=== PATIENT | male | born 1970 | race Caucasian/White ===

== ENCOUNTER → 2018-10-05 23:26 | Outpatient (CLI) | payer OTHER, SELFPAY ==
[2018-10-05 17:33] VITALS: BMI 43.7
[2018-10-05 23:47] LABS: Absolute Lymphocyte Count 2.01 X10^3/ul (0.83-4.51); Absolute Neutrophil Count 5.7 X10^3/uL (2.0-7.7); Basophil# 0.04 X10^3/uL; Basophil% 0.5 % (0-1); Eosinophil# 0.17 X10^3/uL; Hematocrit 51.3 % (40-54); Hemoglobin 17.4 g/dl (13.0-16.5); Lymphocyte # 2.01 X10^3/ul (4.0); Lymphocyte % 23.5 % (19-41); Mean Corp Hgb Conc 33.9 g/gl (32-36); Mean Corpuscular Hgb 31.4 pg (27.0-32.0); Mean Corpuscular Volume 92.6 fL (80-94); Mean Platelet Vol. 10.9 fl (6.2-12.0); Monocyte# 0.66 X10^3/uL; Monocyte% 7.7 % (0-10); Neutrophil # 5.65 X10^3/uL (2.7-7.7); Neutrophil % 65.9 % (47-70); Platelet Count 235 K/mm3 (150-450); RBC Distribution Width CV 13.3 % (11.6-14.6); RBC Distribution Width SD 44.4 fl (35.1-43.9); Red Blood Count 5.54 M/mm3 (4.6-6.2); White Blood Count 8.6 K/mm3 (4.4-11.0)
[2018-10-05 23:51] LABS: POSITIVE COUNT NO; POSITIVE DIFFERENTIAL NO; POSITIVE MORPHOLOGY NO
[2018-10-06 00:06] LABS: ALB/GLOB Ratio 1.1 RATIO (0.9-2.4); AST(SGOT) 30 U/L (15-37); Alanine Aminotransfer ALT/SGPT 44 U/L (16-61); Alkaline Phosphatase 120 U/L (45-117); Anion Gap 8 (5-15); BUN 17 mg/dL (7-18); BUN/Creat Ratio 17.7 RATIO (10-20); Calcium,Total 8.9 mg/dL (8.5-10.1); Chloride 107 mmol/L (98-107); Cholesterol 217 mg/dL (200); Creatinine, Serum 0.96 mg/dL (0.70-1.30); EST Glomerular Filtration Rate 88 mL/min (>60); Est Glom Filt Rate - Afr Amer 107 mL/min (>60); Globulin 3.6 g/dL (2.2-4.2); Glucose 93 mg/dL (74-106); High Density Lipoprotein 42 mg/dL; PSA,Total - Annual Screen 1.91 ng/mL (0.00-4.00); Potassium 4.2 mmol/L (3.5-5.1); Protein, Total 7.6 g/dL (6.4-8.2); Sodium Level 138 mmol/L (136-145); Triglycerides 177 mg/dL; Very Low Density Lipoprotein 35 mg/dL (5-40)
== END ==
PROVIDERS: Referring Provider Nurse Practitioner; Visit Provider Nurse Practitioner
DX: Z00.00 Encounter for general adult medical examination without abnormal findings (principal)
CPT/HCPCS: 80053; 80061; 84153; 85025; G0103

== ENCOUNTER → 2019-09-12 | Outpatient (CLI) | payer OTHER, SELFPAY ==
[2019-09-12 19:23] VITALS: BMI 42.7
[2019-09-13 01:38] LABS: Absolute Lymphocyte Count 2.54 X10^3/uL (0.83-4.51); Absolute Neutrophil Count 4.3 X10^3/uL (2.0-7.7); Basophil# 0.05 X10^3/uL; Basophil% 0.6 % (0-1); Eosinophil# 0.13 X10^3/uL; Eosinophils% 1.7 % (0-5); Hematocrit 50.9 % (40-54); Hemoglobin 16.5 g/dL (13.0-16.5); Lymphocyte # 2.54 X10^3/ul (4.0); Lymphocyte % 32.9 % (19-41); Mean Corp Hgb Conc 32.4 g/dL (32-36); Mean Corpuscular Hgb 29.6 pg (27.0-32.0); Mean Corpuscular Volume 91.4 fL (80-94); Mean Platelet Vol. 10.8 fl (6.2-12.0); Monocyte# 0.65 X10^3/uL; Monocyte% 8.4 % (0-10); NRBC Flagged by Analyzer 0 % (0-5); Neutrophil # 4.34 X10^3/uL (2.7-7.7); Neutrophil % 56.1 % (47-70); Platelet Count 242 K/mm3 (150-450); RBC Distribution Width CV 12.8 % (11.6-14.6); RBC Distribution Width SD 43.1 fl (35.1-43.9); Red Blood Count 5.57 M/mm3 (4.6-6.2); White Blood Count 7.7 K/mm3 (4.4-11.0)
[2019-09-13 02:21] LABS: ALB/GLOB Ratio 1.1 RATIO (0.9-2.4); AST(SGOT) 27 U/L (15-37); Alanine Aminotransfer ALT/SGPT 42 U/L (16-61); Alkaline Phosphatase 138 U/L (45-117); Anion Gap 5 (5-15); BUN 20 mg/dL (7-18); BUN/Creat Ratio 18.9 RATIO (10-20); Chloride 108 mmol/L (98-107); Cholesterol 216 mg/dL (200); Creatinine, Serum 1.06 mg/dL (0.70-1.30); EST Glomerular Filtration Rate 78 mL/min (>60); Est Glom Filt Rate - Afr Amer 95 mL/min (>60); Globulin 3.6 g/dL (2.2-4.2); Glucose 85 mg/dL (74-106); High Density Lipoprotein 46 mg/dL; Potassium 4.5 mmol/L (3.5-5.1); Protein, Total 7.6 g/dL (6.4-8.2); Sodium Level 139 mmol/L (136-145); Triglycerides 129 mg/dL; Very Low Density Lipoprotein 26 mg/dL (5-40)
== END ==
PROVIDERS: Family Provider Nurse Practitioner; PCP Nurse Practitioner; Referring Provider Nurse Practitioner; Visit Provider Nurse Practitioner
DX: Z00.00 Encounter for general adult medical examination without abnormal findings (principal); Z23 Encounter for immunization
CPT/HCPCS: 80053; 80061; 85025

== ENCOUNTER → 2020-10-10 19:37 | Outpatient (CLI) | payer OTHER, SELFPAY ==
[2020-10-10 12:49] VITALS: BMI 46.5
[2020-10-10 19:50] LABS: Absolute Neutrophil Count 3.9 X10^3/uL (2.0-7.7); Basophil# 0.04 X10^3/uL; Basophil% 0.6 % (0-1); Eosinophil# 0.11 X10^3/uL; Eosinophils% 1.6 % (0-5); Hematocrit 52.9 % (40-54); Hemoglobin 17.4 g/dL (13.0-16.5); Lymphocyte % 32.1 % (19-41); Mean Corp Hgb Conc 32.9 g/dL (32-36); Mean Corpuscular Hgb 30.9 pg (27.0-32.0); Mean Platelet Vol. 10.5 fl (6.2-12.0); Monocyte# 0.59 X10^3/uL; Monocyte% 8.6 % (0-10); NRBC Flagged by Analyzer 0 % (0-5); Neutrophil # 3.88 X10^3/uL (2.7-7.7); Neutrophil % 56.7 % (47-70); Platelet Count 248 K/mm3 (150-450); RBC Distribution Width SD 45.3 fl (35.1-43.9); Red Blood Count 5.63 M/mm3 (4.6-6.2); White Blood Count 6.9 K/mm3 (4.4-11.0)
[2020-10-10 20:30] LABS: ALB/GLOB Ratio 1.1 RATIO (0.9-2.4); AST(SGOT) 31 U/L (15-37); Alanine Aminotransfer ALT/SGPT 52 U/L (16-61); Alkaline Phosphatase 127 U/L (45-117); Anion Gap 5 (5-15); BUN 17 mg/dL (7-18); BUN/Creat Ratio 16.3 RATIO (10-20); Calcium,Total 9.2 mg/dL (8.5-10.1); Chloride 104 mmol/L (98-107); Cholesterol 234 mg/dL (200); Creatinine, Serum 1.04 mg/dL (0.70-1.30); EST Glomerular Filtration Rate 80 mL/min (>60); Est Glom Filt Rate - Afr Amer 97 mL/min (>60); Globulin 3.8 g/dL (2.2-4.2); Glucose 91 mg/dL (74-106); High Density Lipoprotein 50 mg/dL; PSA,Total - Annual Screen 1.68 ng/mL (0.00-4.00); Potassium 5.1 mmol/L (3.5-5.1); Protein, Total 7.8 g/dL (6.4-8.2); Sodium Level 137 mmol/L (136-145); Triglycerides 124 mg/dL; Very Low Density Lipoprotein 25 mg/dL (5-40)
== END ==
PROVIDERS: Referring Provider Nurse Practitioner; Visit Provider Nurse Practitioner
DX: Z00.00 Encounter for general adult medical examination without abnormal findings (principal)
CPT/HCPCS: 80053; 80061; 84153; 85025; G0103

== ENCOUNTER → 2021-07-01 21:41 | Outpatient (CLI) | payer OTHER, SELFPAY ==
[2021-07-01 21:49] LABS: Absolute Lymphocyte Count 1.62 X10^3/uL (0.83-4.51); Absolute Neutrophil Count 5.8 X10^3/uL (2.0-7.7); Basophil# 0.03 X10^3/uL; Basophil% 0.4 % (0-1); Eosinophil# 0.01 X10^3/uL; Eosinophils% 0.1 % (0-5); Hematocrit 47.1 % (40-54); Hemoglobin 15.4 g/dL (13.0-16.5); Lymphocyte # 1.62 X10^3/ul (0.83-4.51); Lymphocyte % 18.9 % (19-41); Mean Corp Hgb Conc 32.7 g/dL (32-36); Mean Corpuscular Hgb 29.9 pg (27.0-32.0); Mean Corpuscular Volume 91.5 fL (80-94); Mean Platelet Vol. 10.6 fl (6.2-12.0); Monocyte# 0.87 X10^3/uL; Monocyte% 10.2 % (0-10); NRBC Flagged by Analyzer 0 % (0-5); Neutrophil # 5.83 X10^3/uL (2.7-7.7); Neutrophil % 68.1 % (47-70); POSITIVE MORPHOLOGY YES; Platelet Count 256 K/mm3 (150-450); RBC Distribution Width CV 14.1 % (11.6-14.6); RBC Distribution Width SD 47.8 fl (35.1-43.9); Red Blood Count 5.15 M/mm3 (4.6-6.2); White Blood Count 8.6 K/mm3 (4.4-11.0)
[2021-07-01 22:00] LABS: Differential Indicated SCAN CRITERIA MET
[2021-07-01 22:08] LABS: ALB/GLOB Ratio 0.7 RATIO (0.9-2.4); AST(SGOT) 60 U/L (15-37); Alanine Aminotransfer ALT/SGPT 90 U/L (16-61); Albumin, Serum 2.8 g/dL (3.2-5.0); Alkaline Phosphatase 143 U/L (45-117); Anion Gap 6 (5-15); BUN 28 mg/dL (7-18); Calcium,Total 9.1 mg/dL (8.5-10.1); Chloride 107 mmol/L (98-107); Creatinine, Serum 0.87 mg/dL (0.70-1.30); EST Glomerular Filtration Rate 97 mL/min (>60); Est Glom Filt Rate - Afr Amer 118 mL/min (>60); Globulin 4.3 g/dL (2.2-4.2); Glucose 126 mg/dL (74-106); Potassium 4.3 mmol/L (3.5-5.1); Protein, Total 7.1 g/dL (6.4-8.2); Sodium Level 139 mmol/L (136-145)
[2021-07-01 22:28] LABS: Differential Comment SCANNED
== END ==
PROVIDERS: Visit Provider Nurse Practitioner
DX: R50.9 Fever, unspecified (principal); R04.2 Hemoptysis
CPT/HCPCS: 80053; 85025

== ENCOUNTER → 2021-09-12 21:06 | Outpatient (CLI) | payer OTHER, SELFPAY ==
[2021-09-12 21:35] LABS: Absolute Lymphocyte Count 1.95 X10^3/uL (0.83-4.51); Absolute Neutrophil Count 4.3 X10^3/uL (2.0-7.7); Basophil# 0.06 X10^3/uL; Basophil% 0.8 % (0-1); Eosinophil# 0.24 X10^3/uL; Eosinophils% 3.2 % (0-5); Hematocrit 52.1 % (40-54); Hemoglobin 16.6 g/dL (13.0-16.5); Lymphocyte # 1.95 X10^3/ul (0.83-4.51); Lymphocyte % 25.9 % (19-41); Mean Corp Hgb Conc 31.9 g/dL (32-36); Mean Corpuscular Hgb 29.7 pg (27.0-32.0); Mean Corpuscular Volume 93.4 fL (80-94); Mean Platelet Vol. 11.1 fl (6.2-12.0); Monocyte# 0.94 X10^3/uL; Monocyte% 12.5 % (0-10); NRBC Flagged by Analyzer 0 % (0-5); Neutrophil % 57.2 % (47-70); Platelet Count 224 K/mm3 (150-450); RBC Distribution Width CV 13.8 % (11.6-14.6); RBC Distribution Width SD 47.4 fl (35.1-43.9); Red Blood Count 5.58 M/mm3 (4.6-6.2); White Blood Count 7.5 K/mm3 (4.4-11.0)
[2021-09-12 22:18] LABS: AST(SGOT) 33 U/L (15-37); Alanine Aminotransfer ALT/SGPT 46 U/L (16-61); Albumin, Serum 3.5 g/dL (3.2-5.0); Alkaline Phosphatase 112 U/L (45-117); Anion Gap 5 (5-15); BUN 21 mg/dL (7-18); BUN/Creat Ratio 19.1 RATIO (10-20); CRP, High Sensitivity Cardiac 4.78 mg/L; Calcium,Total 9.3 mg/dL (8.5-10.1); Chloride 108 mmol/L (98-107); Cholesterol 199 mg/dL (200); EST Glomerular Filtration Rate 75 mL/min (>60); Est Glom Filt Rate - Afr Amer 90 mL/min (>60); Globulin 3.5 g/dL (2.2-4.2); Glucose 91 mg/dL (74-106); High Density Lipoprotein 36 mg/dL; Potassium 4.3 mmol/L (3.5-5.1); Sodium Level 141 mmol/L (136-145); Triglycerides 125 mg/dL; Very Low Density Lipoprotein 25 mg/dL (5-40)
== END ==
PROVIDERS: Visit Provider Nurse Practitioner
DX: B37.0 Candidal stomatitis (principal); I10 Essential (primary) hypertension; E78.2 Mixed hyperlipidemia
CPT/HCPCS: 80053; 80061; 85025; 86141

== ENCOUNTER → 2022-08-04 | Outpatient (CLI) | payer OTHER, SELFPAY ==
[2022-08-04 21:44] LABS: Absolute Lymphocyte Count 1.89 X10^3/uL (0.83-4.51); Absolute Neutrophil Count 3.9 X10^3/uL (2.0-7.7); Basophil# 0.04 X10^3/uL; Basophil% 0.6 % (0-1); Eosinophil# 0.16 X10^3/uL; Eosinophils% 2.4 % (0-5); Hematocrit 54.1 % (40-54); Hemoglobin 17.9 g/dL (13.0-16.5); Lymphocyte # 1.89 X10^3/ul (0.83-4.51); Lymphocyte % 28.4 % (19-41); Mean Corp Hgb Conc 33.1 g/dL (32-36); Mean Corpuscular Hgb 30.9 pg (27.0-32.0); Mean Corpuscular Volume 93.3 fL (80-94); Monocyte# 0.66 X10^3/uL; Monocyte% 9.9 % (0-10); NRBC Flagged by Analyzer 0 % (0-5); Neutrophil # 3.88 X10^3/uL (2.7-7.7); Neutrophil % 58.2 % (47-70); Platelet Count 224 K/mm3 (150-450); RBC Distribution Width CV 14.1 % (11.6-14.6); RBC Distribution Width SD 48.1 fl (35.1-43.9); White Blood Count 6.7 K/mm3 (4.4-11.0)
[2022-08-04 22:02] LABS: ALB/GLOB Ratio 1.1 RATIO (0.9-2.4); AST(SGOT) 52 U/L (15-37); Alanine Aminotransfer ALT/SGPT 65 U/L (16-61); Albumin, Serum 3.9 g/dL (3.2-5.0); Alkaline Phosphatase 134 U/L (45-117); Anion Gap 4 (5-15); BUN 27 mg/dL (7-18); BUN/Creat Ratio 22.9 RATIO (10-20); Calcium,Total 9.4 mg/dL (8.5-10.1); Chloride 108 mmol/L (98-107); Cholesterol 199 mg/dL (200); Creatinine, Serum 1.18 mg/dL (0.70-1.30); EST Glomerular Filtration Rate 69 mL/min (>60); Est Glom Filt Rate - Afr Amer 83 mL/min (>60); Globulin 3.7 g/dL (2.2-4.2); Glucose 123 mg/dL (74-106); High Density Lipoprotein 28 mg/dL; Potassium 4.6 mmol/L (3.5-5.1); Protein, Total 7.6 g/dL (6.4-8.2); Sodium Level 139 mmol/L (136-145); Triglycerides 207 mg/dL; Very Low Density Lipoprotein 41 mg/dL (5-40)
== END | disposition home or self-care (01) ==
PROVIDERS: Visit Provider Nurse Practitioner
DX: E78.2 Mixed hyperlipidemia (principal); I10 Essential (primary) hypertension
CPT/HCPCS: 80053; 80061; 85025

== ENCOUNTER → 2024-01-11 | Outpatient (CLI) | payer OTHER, SELFPAY ==
--- NOTE | 2024-01-11 | LES_PTH ---
PATIENT: RADHA CHRISTIANSON LOC: [facility] U#:[id number] AGE/SX: 53/M ROOM: RE01/11/[address]: CARLA Morelos : 1970 BED: DIS: 01/11/2024 SPEC #: [id number] RECD: 01/11/24 22:09 STATUS: ROSEMARY CECILLE #: [id number] DANIELLE: 01/11/24 00:[address]: Naz Barajas NP DEPT: SURGICAL PATHOLOGY RECD BY: Lilliam Frye Tissues: Skin of arm Procedures: Surgery Specimen Level IV HEADER OPERATION: Biopsy 8mm left forearm PRE-OP DIAGNOSIS: Lesion left arm, Carcinoma in situ TISSUE SUBMITTED: Left forearm lesion MICROSCOPIC DIAGNOSIS Skin lesion of left forearm, biopsy: Basal cell carcinoma, superficial, multifocal. Extensive solar elastosis. Chronic dermatitis. Margins of excision are free of carcinoma. AM/mr 01/13/24 MICROSCOPIC DESCRIPTION Slides are reviewed. GROSS DESCRIPTION Received in fixative is one container labeled with the patient's name and designated Left forearm biopsy. The specimen consists of a piece of moss white skin measuring 0.7 x 0.6 x 0.2cm. The specimen is inked, bisected and submitted entirely in one cassette. ARIANA/ 01/12/24 TC:0 CPT: 14111
== END | disposition home or self-care (01) ==
PROVIDERS: PCP Nurse Practitioner; Visit Provider Nurse Practitioner
DX: D04.9 Carcinoma in situ of skin, unspecified (principal); C44.619 Basal cell carcinoma of skin of left upper limb, including shoulder; L30.9 Dermatitis, unspecified
CPT/HCPCS: 88305

== ENCOUNTER → 2024-07-26 | Outpatient (CLI) | payer OTHER, SELFPAY ==
[2024-07-26 21:00] LABS: Absolute Lymphocyte Count 2.15 X10^3/uL (0.83-4.51); Absolute Neutrophil Count 4.2 X10^3/uL (2.0-7.7); Basophil# 0.05 X10^3/uL; Basophil% 0.7 % (0-1); Eosinophil# 0.16 X10^3/uL; Eosinophils% 2.2 % (0-5); Hemoglobin 18.5 g/dL (13.0-16.5); Lymphocyte # 2.15 X10^3/ul (0.83-4.51); Lymphocyte % 29.6 % (19-41); Mean Corp Hgb Conc 32.6 g/dL (32-36); Mean Corpuscular Hgb 29.6 pg (27.0-32.0); Mean Corpuscular Volume 90.6 fL (80-94); Mean Platelet Vol. 11.1 fl (6.2-12.0); Monocyte# 0.71 X10^3/uL; Monocyte% 9.8 % (0-10); NRBC Flagged by Analyzer 0 % (0-5); Neutrophil # 4.16 X10^3/uL (2.7-7.7); Neutrophil % 57.3 % (47-70); Platelet Count 244 K/mm3 (150-450); RBC Distribution Width CV 14.4 % (11.6-14.6); RBC Distribution Width SD 47.7 fl (35.1-43.9); Red Blood Count 6.26 M/mm3 (4.6-6.2); White Blood Count 7.3 K/mm3 (4.4-11.0)
[2024-07-26 21:04] LABS: Hematocrit 56.7 % (40-54)
[2024-07-26 21:10] LABS: AST(SGOT) 36 U/L (15-37); Alanine Aminotransfer ALT/SGPT 38 U/L (16-61); Albumin, Serum 3.8 g/dL (3.2-5.0); Alkaline Phosphatase 153 U/L (45-117); Anion Gap 7 (5-15); BUN 18 mg/dL (7-18); BUN/Creat Ratio 14.4 RATIO (10-20); Calcium,Total 9.4 mg/dL (8.5-10.1); Chloride 105 mmol/L (98-107); Cholesterol 156 mg/dL (200); Creatinine, Serum 1.25 mg/dL (0.70-1.30); EST Glomerular Filtration Rate 64 mL/min (>60); Est Glom Filt Rate - Afr Amer 77 mL/min (>60); Globulin 3.8 g/dL (2.2-4.2); Glucose 102 mg/dL (74-106); High Density Lipoprotein 29 mg/dL; Potassium 4.3 mmol/L (3.5-5.1); Protein, Total 7.6 g/dL (6.4-8.2); Sodium Level 137 mmol/L (136-145); Triglycerides 189 mg/dL; Very Low Density Lipoprotein 38 mg/dL (5-40)
== END | disposition home or self-care (01) ==
PROVIDERS: PCP Nurse Practitioner; Referring Provider Nurse Practitioner; Visit Provider Nurse Practitioner
DX: I10 Essential (primary) hypertension (principal); E78.2 Mixed hyperlipidemia
CPT/HCPCS: 80053; 80061; 85025

== ENCOUNTER → 2025-08-20 | Outpatient (CLI) | payer OTHER, SELFPAY ==
--- OUTSIDE RECORDS SUMMARY | 2025-08-20 22:26 | XMS RPT_ITS | CCD ---
Author Organization [facility] Care Team Providers Care Ventilating Engineer Name Role Phone Required, No Pcp Unavailable Unavailable Kim Edmond Unavailable Unavailabl e None, No PCP Unavailable Unavailable Unavailable Unavailable Unavailable Unavailable Karl STEWARD/STEWARDESS WINE.COUN[employer], Brandie L Primary Care Provide r Karl STEWARD/STEWARDESS WINE.[facility], Brandie L Primary Care Provide r BRANDIE BURT Referring Unavailable KARL, BRANDIE Primary Care Unavailable MD IRMA KEE Referring Unavailabl e MD IRMA KEE Attending UnavailMD IRMA Man Referring Unavailabl e MD IRMA KEE Attending Unavailabl e MD IRMA KEE Attending Unavailabl e MD IRMA KEE Referring Unavailabl e Unavailable Primary Care Provider Unavailabl e Burt STEWARD/STEWARDESS WINE-COUNTER CLERK [employer], Brandie L Primary Care Provide r Karl STEWARD/STEWARDESS [employer]INE.COUNTER CLERK [employer], Brandie L Primary Care Provide r JENIFFER JOSE Referring Unavailable BUTR, BRANDIE L Primary Care Unavailable JENIFFER JOSE Attending Unavailable SELF Referring Unavailable BURT, BRANDIE L Primary Care Unavailable Karl PIN OR CLIP FASTENER, Brandie Referring Unavailable Burt PIN OR CLIP FASTENER, Brandie Attending Unavailable Burt PIN OR CLIP FASTENER, Brandie Primary Care Unavailable Burt PIN OR CLIP FASTENER, Brandie Attending Unavailable Burt PIN OR CLIP FASTENER, Brandie Primary Care Unavailable Burt STEWARD/STEWARDESS WINE-COUNTER CLERK [employer], Brandie L Primary Care Provide r BURT, BRANDIE L Primary Care Unavailable VILLA LUBIN Attending Unavailable BURT, BRANDIE L Primary Care Unavailable VILLA LUBNI Attending Unavailable BRANDIE BURT Primary Care Unavailable BRANDIE BURT Primary Care Unavailable Karl BASSETT-Brandie LAMB Primary Care Provide r IRMA KEE Attending Unavailable BRANDIE BURT Primary Care Unavailable Allergies Allergy Classification Reported Allergen(s) Allergy Type Date of Onset Reaction(s) Facility Cephalosporins (antibiotic) (1 source) Cephalexin Drug Allergy 8 Unknown [facility] (12 sources) Cephalexin; Translations: [CEPHALEXIN] Drug Allergy 8 Unknown, Intolerance, Other: See Comments, Other [facility] Work Phone: (1 source) Cephalexin Drug Allergy 8 [facility] Repository Medications Current Medications Medication Drug Class(es) Dates Sig (Normalized) Sig (Original) amoxicillin 875 mg / clavulanate 125 mg oral tablet (4 sources) Penicillin-class Antibacterial Start: 03-16-2024 End: 03-23-2024 take 1 tablet by mouth twice daily amoxicillin-pot clavulanate (Augmentin) 875-125 mg tablet Indications: Pharyngitis, unspecified etiology Take 1 tablet by mouth 2 times a day for 7 days. 14 tablet 03/16/2024 03/23/2024 Active Start: 01-11-2024 take 1 tablet by hitesh th twice daily Amoxicillin-Pot Clavulanate Active 1 TABLET PO TWICE A DAY January 11, 2024 12:00am Start: 12-25-2019 End: 10-10-2020 take 1 tablet by mouth every twelve hours Amoxicillin-Pot Clavulanate Discontinued 1 TABLET PO Q12H December 25, 2019 12:00am October 10, 2020 1:51pm anastrozole 1 mg oral tablet (14 sources) Aromatase Inhibitor Start: 07-15-2023 take 0.5 mg by mouth every other day Anastrozole Active 0.5 MG PO .qod July 15, 2023 12:00am Start: 08-12-2022 anastrozole (A RIMIDEX) 1 mg tablet Take 1 mg by mouth. 08/12/2022 Active Auto CPAP 5-20cm (2 sources) Start: 10-27-2021 Auto CPAP 5-20 cm Active 0 .Route .MEDSUPPLY October 27, 2021 1:00am with tubing mask or nasal prongs depending on evaluation DX G47.30 severe sleep apnea azithromycin 250 mg oral tablet (5 sources) Macrolide Antimicrobial Start: 08-29-2024 azithromycin (Zithromax) 250 mg tablet Indications: Upper respiratory tract infection, unspecified type 2 tabs po day 1; 1 tab po every day days 2-5 6 tablet 08/29/2024 Active Start: 09-04-2022 End: 09-09-2022 Azithromycin Discontinued 25 0 MG PO daily 6 September 04, 2022 1:00am September 09, 2022 1:03am 2 po qd for 1 day then 1 po qd for 4 days with food or after eating Start: 07-01-2021 End: 07-06-2021 Azithromycin Discontinued 25 0 MG PO daily 6 July 01, 2021 12:00am July 06, 2021 12:01am 2 po qd for 1 day then 1 po qd for 4 days with food or after eating brompheniramine maleate 0.4 mg/ml / dextromethorphan hydrobromide 2 mg/ml / pseudoephedrine hydrochloride 6 mg/ml oral solution (5 sources) alpha-Adrenergic Agonist, Uncompetitive H-ljwqck-P-aspartate Receptor Antagonist, Sigma-1 Agonist Start: 08-29-2024 take 5 mL by mouth every four hours for cough anfdxvvkaokeppc-bdazjopfm-QV (Bromfed DM) 2-30-10 mg/5 mL syrup Indications: Upper respiratory tract infection, unspecified type Take 5 mL by mouth every 4 hours if needed for allergies, congestion or cough. 120 mL 08/29/2024 Active Start: 03-16-2024 take 5 mL by mouth every four hours for cough cayudskydlaokyr-ngudotlzs-SR (Bromfed DM ) 2-30-10 mg/5 mL syrup Indications: Pharyngitis, unspecified etiology Take 5 mL by mouth every 4 hours if needed for allergies, congestion or cough. 120 mL 03/16/2024 Active clotrimazole 10 mg oral lozenge (1 source) Azole Antifungal Start: 08-29-2024 End: 09-05-2024 take 1 tablet by mouth four times daily clotrimazole (Mycelex) 10 mg tono Indications: Upper respiratory tract infection, unspecified type Take 1 tablet (10 mg) by mouth 4 times a day for 7 days. 28 Tono 08/29/2024 09/05/2024 Active losartan potassium 50 mg oral tablet (8 sources) Angiotensin 2 Receptor Tabitha Start: 07-15-2023 take 1 tablet by mouth once daily losartan (Cozaar) 50 mg tablet Take 1 tablet (50 mg) by mouth once daily. 10/29/2023 Active methylPREDNISolone (2 sources) Corticosteroid Start: 08-29-2024 methylPREDNISolone (Medrol Dospak) 4 mg tablets Indications: Upper respiratory tract infection, unspecified type Take as directed on package. 21 tablet 08/29/2024 Active minocycline 50 mg oral capsule (20 sources) Tetracycline-class Drug Start: 10-05-2018 End: 09-20-2023 take 50 mg by mouth once daily Minocycline Active 50 MG PO DAILY September 20, 2023 10:22pm Minocycline HCl CAPS Quantity: 0 Refills: 0 Ordered: 12-Aug-2022 DO Active Comment on above: Source=Elissarimary, Medication=Minocycli ne 50 Mg Cap Sunp, OriginatingSource=[id number], OriginatingProvider=BRANDIE BURT, Duration=30, Refills=6, Date Last Modified/Filled=07-Apr-2021 naproxen 500 mg oral tablet (7 sources) Nonsteroidal Anti-inflammatory Drug Start: 2021 take 1 tablet by mouth twice daily naproxen (Naprosyn) 500 mg tablet Take 1 tablet (500 mg) by mouth 2 times a day. 04/26/2023 Active Start: 05-05-2021 End: 05-11-2021 take 1 tablet by mouth twice daily as needed for pain naproxen 500 mg oral delayed release tablet ; 1 tab(s) orally 2 times a day, As Needed -for pain Quantity: 14 Refills: 0 Ordered: 05-May-2021 Kim Edmond Start: 05-May-2021 End: 11-May-2021 Generic Substitution Allowed Comments: Check with your doctor before becoming .It is very important that you take or use this exactly as directed. Do not skip doses or discontinue unless directed by your doctor.May cause drowsiness or dizziness.Obtain medical advice before taking any non-prescription drugs as some may affect the action of this medication.Swallow whole. Do not crush.Take with food or milk. Comment on above: Check with your doct or before becoming .It is very important that you take or use this exactly as directed. Do not skip doses or discontinue unless directed by your doctor.May cause drowsiness or dizziness.Obtain medical advice before taking any non-prescription drugs as some may affect the action of this medication.Swallow whole. Do not crush.Take with food or milk. predniSONE 10 mg oral tablet (3 sources) Start: 03-16-20 End: 03-21-20 take 1 tablet by mouth twice daily predniSONE (Deltasone) 10 mg tablet Indications: Pharyngitis, unspecified etiology Take 1 tablet (10 mg) by mouth 2 times a day for 5 days. 10 tablet 03/16/2024 03/21/2024 Active Start: 05-13-2021 End: 05-17-2021 Prednisone Discontinued 20 M G PO TWICE A DAY 07 02May 13, 2021 12:00am May 17, 2021 12:01am 2 po bid 4D,1 po bid for 4 D, 1 po qd for 4 D 1/2 po qd for 2 days sildenafil 50 mg oral tablet (20 sources) Phosphodiesterase 5 Inhibitor Start: 08-30-2023 take 1 tablet by mouth once daily as needed sildenafil (Viagra) 50 mg tablet TAKE 1 TABLET BY MOUTH DAILY NEEDED 30 MINUTES to FOUR HOURS before sexual activity 08/30/2023 Active Start: 12-14-2022 Sildenafil Act kale 50 MG PO DAILY December 14, 2022 1:00am administer 30 minutes to 4 hours before activity Start: 08-04-2022 End: 12-14-2022 take 25 mg by mouth once daily Sildenafil Discontinued 25 MG PO DAILY December 10, 2022 9:18pm December 14, 2022 3:11pm Start: 10-05-2018 End: 08-04-2022 Sildenafil Discontinued 100 MG PO ONCE 30 July 01, 2021 6:37pm August 04, 2022 7:35pm administer 30 minutes to 4 hours before activity Comment on above: Source=Surescripts, Medication=Sildenafi l 100 Mg Tab Amne, OriginatingSource=[id number], OriginatingProvider=BRANDIE BURT, Duration=30, Refills=11, Date Last Modified/Filled=06-Nov-2020 sleep study (2 sources) Start: sleep study Active 0 .Route .MEDSUPPLY May 01, 2021 12:00am home test for 2 nights complete sleep work up with evalutation or recommendations tadalafil 20 mg oral tablet (13 sources) Phosphodiesterase 5 Inhibitor Start: tadalafil 20 mg tablet Indications: Male erectile dysfunction, unspecified Take 1 tablet (20 mg) by mouth if needed for erectile dysfunction. 30 tablet 2 11/02/2024 Active Start: 11-18-2022 tadalafil 20 m g tablet Indications: Male erectile dysfunction, unspecified Take 1 tablet (20 mg) by mouth if needed for erectile dysfunction. 30 tablet 2 06/02/2024 Active 0.5 ml testosterone enanthate 200 mg/ml auto-injector (20 sources) Androgen Start: 11-22-2024 testosterone e nanthate (Xyosted) 100 mg/0.5 mL auto-injector Indications: Male hypogonadism Inject 1 Syringe (100 mg) under the skin every 7 days. 4 each 5 11/22/2024 Active Start: 08-23-2024 End: 11-22-2024 Xyosted 100 mg/0.5 mL auto-injector Indications: Male hypogonadism Inject 1 Syringe (100 mg) under the skin every 7 days. 2 mL 5 08/23/2024 11/22/2024 Discontinued (Reorder) Start: 03-08-2024 inject 100 mg by sub cutaneous injection every week XYOSTED 100 mg/0.5 mL AutoInjector Inject 100 mg subcutaneously one time a week. 03/08/2024 Active Start: 03-08-2024 testosterone e nanthate (Xyosted) 100 mg/0.5 mL auto-injector Indications: Male hypogonadism Inject 1 Syringe (100 mg) under the skin every 7 days. 4 each 5 03/08/2024 Active Start: 02-29-2024 take 1 capsule by mo uth twice daily Jatenzo 237 mg capsule Indications: Male hypogonadism Take 1 capsule by mouth 2 times a day. 60 capsule 02/29/2024 Active Start: 01-22-2023 take 1 capsule by mo uth twice daily Jatenzo 158 MG Oral Capsule Take 1 capsule twice daily Quantity: 60 Refills: 1 Ordered: 22-Jan-2023 Irma Kee II, MD Start : 22-Jan-2023 Active Start: 08-05-2022 End: 07-15-2023 Testosterone Discontinued 1 PACKET TD DAILY August 05, 2022 12:00am July 15, 2023 6:36pm apply to max area of ONE upper arem and shoulder Start: 11-17-2021 End: 11-10-2023 take 1 capsule by mouth twice daily Jatenzo 237 mg capsule Indications: Male hypogonadism Take 1 capsule by mouth 2 times a day. 60 capsule 5 11/10/2023 Active Start: 06-11-2021 Testosterone 2 0.25 MG/1.25GM (1.62%) Transdermal Gel APPLY 3 PUMPS DAILY DIRECTED Quantity: 150 Refills: 3 Ordered: 26-Jun-2021 Irma Kee II, MD Start : 11-Jun-2021 Active Completed/Discontinued Medications Medication Drug Class(es) Dates Sig (Normalized) Sig (Original) [id number] 200 actuat albuterol 0.09 mg/actuat metered dose inhaler (8 sources) beta2-Adrenergic Agonist Start: 06-25-2021 Albuterol Sulfate HFA 108 (90 Base) MCG/ACT Inhalation Aerosol Solution Quantity: 25 Refills: 0 Ordered: 25-Jun-2021 DO Start : 25-Jun-2021 Active Start: 06-25-2021 Albuterol Sulf ate HFA 108 (90 Base) MCG/ACT Inhalation Aerosol Solution Quantity: 25 Refills: 0 Ordered: 25-Jun-2021 DO Start : 25-Jun-2021 Active Start: 06-25-2021 End: 08-04-2022 take 1 puff(s) by inhalation every four hours Albuterol Sulfate (Ventolin Hfa) 90 mcg/actuation HFA aerosol inhaler Discontinued 2 PUFF INHALATION Q4H 18 90 June 25, 2021 12:00am August 04, 2022 7:33pm dexamethasone 6 mg oral tablet (2 sources) Corticosteroid Start: 06-25-2021 End: 08-04-2022 take 1 tablet by mouth once daily Dexamethasone (Decadron) 6 mg tablet Discontinued 6 MG PO DAILY June 25, 2021 12:00am August 04, 2022 7:33pm enteric contrast (will be provided with radiology test) (1 source) Start: 07-25-2024 End: 07-26-2024 enteric contrast (will be provided with radiology test) For CT Chest Abdomen W IVCON order Administer, As Directed One Time Only, via Oral, Rectal, both Oral and Rectal, Enteric Tube, Stoma or Indwelling Catheter, Enteric Contrast as designated per enteric contrast guidelines 1 Each 07/25/2024 07/26/2024 fluconazole 100 mg oral tablet (3 sources) Azole Antifungal Start: 07-15-2023 End: 12-27-2023 take 100 mg by mouth once daily Fluconazole Discontinued 100 MG PO daily July 15, 2023 12:00am December 27, 2023 12:53pm Start: 09-12-2021 End: 08-04-2022 take 100 mg by mouth once daily Fluconazole Discontinued 100 MG PO daily September 12, 2021 1:00am August 04, 2022 7:33pm iv contrast (will be provided with radiology test) (1 source) Start: 07-25-2024 End: 07-26-2024 iv contrast (will be provided with radiology test) CT Chest Abdomen-Inject, intravenously, once for 1 dose.No IV access, insert saline lock prior to the beginning of sedation, infusion, injection of imaging exam. Discontinue saline lock post exam. If Pt. has a central line or IVAD, may access for administration according to line specific nursing protocol. Once exam is complete flush line and de-access according to line specific nursing protocol in the CT contrast administration guidelines link. 1 Each 07/25/2024 07/26/2024 levoFLOXacin 500 mg oral tablet (8 sources) Quinolone Antimicrobial Start: 08-08-2021 levoFLOXacin 500 MG Oral Tablet Quantity: 14 Refills: 0 Ordered: 08-Aug-2021 DO Start : 08-Aug-2021 Active Start: 08-08-2021 End: 08-04-2022 take 500 mg by mouth once daily Levofloxacin Discontinued 500 MG PO DAILY August 08, 2021 12:00am August 04, 2022 7:33pm lisinopril 10 mg oral tablet (20 sources) Angiotensin Converting Enzyme Inhibitor Start: 10-05-2018 End: 07-15-2023 take 10 mg by mouth once daily Lisinopril Discontinued 10 MG PO DAILY August 04, 2022 7:36pm July 15, 2023 6:39pm Comment on above: Source=Surescripts, Medication=Lisinopril 10 Mg Tab Tete, OriginatingSource=[id number], OriginatingProvider=BRANDIE BURT, Duration=30, Refills=6, Date Last Modified/Filled=07-Apr-2021 Problems Active Problems Problem Classification Problem Date Documented Da te Episodic/Chronic Abdominal hernia (3 sources) Unspecified abdominal hernia without obstruction or gangrene; Translations: [Hernia of unspecified site without mention of obstruction or gangrene] Onset: 08-07-2024 07-25-2024 Episodic Allergic reactions (2 sources) Contact dermatitis due to poison bowen; Translations: [Allergic contact dermatitis due to plants, except food] 05-13-2021 Episodic Chronic obstructive pulmonary disease and bronchiectasis (2 sources) Bronchitis; Translations: [Bronchitis, not specified as acute or chronic] 12-25-2019 Episodic Coma; stupor; and brain damage (2 sources) Drowsy; Translations: [Somnolence] 04-28-2021 Episodic Disorders of lipid metabolism (2 sources) Hyperlipidemia; Translations: [Hyperlipidemia, unspecified] 10-10-2020 Chronic Essential hypertension (3 sources) Hypertensive disorder; Translations: [Essential (primary) hypertension] Onset: 08-17-2024 10-10-2020 Chronic Fever of unknown origin (2 sources) Fever; Translations: [Fever, unspecified] 07-01-2021 Episodic Hyperplasia of prostate (20 sources) Benign prostatic hypertrophy without outflow obstruction; Translations: [Hypertrophy (benign) of prostate without urinary obstruction and other lower urinary tract symptom (LUTS)] Onset: 11-22-2024 11-09-2023 Chronic Mycoses (3 sources) Candidiasis of mouth; Translations: [Candidal stomatitis] 09-12-2021 Episodic Osteoarthritis (2 sources) Osteoarthritis of knee; Translations: [Osteoarthritis of knee, unspecified] 05-05-2021 Chronic Other circulatory disease (1 source) Elevated blood pressure; Translations: [Elevated blood pressure reading without diagnosis of hypertension] 05-05-2021 Episodic Other connective tissue disease (2 sources) Osteophyte of bone; Translations: [Enthesopathy, unspecified] 05-05-2021 Episodic Other endocrine disorders (20 sources) Male hypogonadism; Translations: [Other testicular hypofunction] 11-09-2023 Chronic Other endocrine disorders (4 sources) Testicular hypofunction; Translations: [Testicular hypofunction] Onset: 05-01-2024 Chronic Other gastrointestinal disorders (4 sources) Disorder of abdominal wall; Translations: [Intra-abdominal and pelvic swelling, mass and lump, unspecified site] Onset: 07-27-2024 07-27-2024 Episodic Other inflammatory condition of skin (2 sources) Pruritus of skin; Translations: [Pruritus, unspecified] 05-13-2021 Episodic Other lower respiratory disease (2 sources) Hemoptysis; Translations: [Hemoptysis] 07-01-2021 Episodic Other lower respiratory disease (1 source) Rib pain; Translations: [Pleurodynia] 02-01-2023 Episodic Other male genital disorders (20 sources) Male erectile dysfunction, unspecified; Translations: [Erectile dysfunction] Onset: 11-22-2024 11-09-2023 Chronic Other non-traumatic joint disorders (6 sources) Knee pain; Translations: [Pain in joint, lower leg] 05-05-2021 Episodic Comment on above: RIGHT KNEE PAIN Other screening for suspected conditions (not mental disorders or infectious disease) (2 sources) Decreased testosterone level ; Translations: [Other specified abnormal findings of blood chemistry] 04-28-2021 Episodic Other skin disorders (1 source) Disorder of skin of upper limb; Translations: [Disorder of the skin and subcutaneous tissue, unspecified] 09-04-2022 Episodic Other upper respiratory infections (9 sources) Acute maxillary sinusitis; Translations: [Acute maxillary sinusitis, unspecified] Onset: 03-16-2024 12-25-2019 Episodic Pneumonia (except that caused by tuberculosis or sexually transmitted disease) (2 sources) Pneumonia; Translations: [Pneumonia, unspecified organism] 07-11-2021 Episodic Residual codes; unclassified (2 sources) Hypersomnia with sleep apnea; Translations: [Hypersomnia, unspecified] 04-28-2021 Chronic Residual codes; unclassified (4 sources) Sleep apnea; Translations: [Sleep apnea, unspecified] 10-27-2021 Chronic Residual codes; unclassified (10 sources) Chews tobacco ; Translations: [Tobacco use disorder] Episodic Spondylosis; intervertebral disc disorders; other back problems (1 source) Muscle spasm of thoracic back; Translations: [Muscle spasm of back] 02-01-2023 Episodic Unclassified (1 source) Elevated blood pressure reading 05-05-2021 Past or Other Problems Problem Classification Problem Date Documented Da te Episodic/Chronic Genitourinary symptoms and ill-defined conditions (20 sources) Nocturia; Translations: [Nocturia] Onset: 05-01-2024 11-09-2023 Episodic Other non-epithelial cancer of skin (2 sources) Basal cell carcinoma of skin in situ; Translations: [Carcinoma in situ of skin, unspecified] Onset: 02-10-2024 12-27-2023 Episodic Unclassified (2 sources) HERNIA VENTRAL 2011 05-11-2022 Unclassified (4 sources) Onset: 10-05-2023 10-05-2023 Results Test Name Value Interpretation Reference Range Facility ESTRADIOLon 08-16-2025 ESTRADIOL <30 Normal < OR = 39 [facility] Comment on above: Order Comment: FASTI NG:YES FASTING: YES Result Comment: Refe rence range established on post-pubertal patient population. No pre-pubertal reference range established using this assay. For any patients for whom low Estradiol levels are anticipated (e.g. males, pre-pubertal children and hypogonadal/post-menopausal females), the [facility] [place] Estradiol, Ultrasensitive, LCMSMS assay is recommended (order code 60836). Please note: patients being treated with the drug fulvestrant (Faslodex(R)) have demonstrated significant interference in immunoassay methods for estradiol measurement. The cross reactivity could lead to falsely elevated estradiol test results leading to an inappropriate clinical assessment of estrogen status. [facility] order code 16550-[id number], Ultrasensitive LC/MS/MS demonstrates negligible cross reactivity with fulvestrant. Performed By: #### 4 021 #### [facility] [address], [address] [place] [address] Pastoral Counselor: Ron Trevino MD HEMOGLOBIN + HEMATOCRITon Hematocrit (Bld) [Volume fraction] 55.0 % High 38.5-50.0 [facility] Comment on above: Order Comment: FASTI NG:YES FASTING: YES Performed By: #### 7 998, 874, 5363 #### [facility] [address], [address] [place] [address] Pastoral Counselor: Ron Trevino MD Hemoglobin (Bld) [Mass/Vol] 18.2 g/dL High 13.2-17.1 [facility] Comment on above: Order Comment: FASTI NG:YES FASTING: YES Performed By: #### 7 998, 873, 5363 #### [facility] [address], [address] [place] [address] Pastoral Counselor: Ron Trevino MD PSA, TOTALon 08-16-2025 PSA, TOTAL 2.71 ng/mL Normal < OR = 4.00 [facility] Comment on above: Result Comment: The total PSA value from this assay system is standardized against the WHO standard. The test result will be approximately 20% lower when compared to the equimolar-standardized total PSA (Barbi Franc). Comparison of serial PSA results should be interpreted with this fact in mind. This test was performed using the Siemens chemiluminescent method. Values obtained from different assay methods cannot be used interchangeably. PSA levels, regardless of value, should not be interpreted as absolute evidence of the presence or absence of disease. Performed By: #### 7 998, 873, 5363 #### [facility] [address], [address] [place] [address] Pastoral Counselor: Ron Trevino MD TESTOSTERONE, TOTAL, MALES ( ADULT), IAon 08-16-2025 TESTOSTERONE, TOTAL, MALES (ADULT), IA 787 ng/dL Normal 250-827 [facility] Comment on above: Performed By: #### 7 998, 873, 5363 #### [facility] [address], [address] [place] [address] Pastoral Counselor: Ron Trevino MD Estradiolon 10-21-2024 E2 [Mass/Vol] 22 pg/mL Normal [facility] Comment on above: Order Comment: REF V ALUES FOLLICULAR PHASE 20-144 MID CYCLE 64-357 LUTEAL PHASE 56-214 POSTMENOPAUSE < 32 PREPUBERTY < 20 FEMALE 10-18Y 8-110 MALE 10-18Y < 20 ADULT MALE < 40 Performed By: #### 2 243-4 #### JIM Ruiz ([id number]) [facility] ([facility]) [address] [place] [address] Hemoglobin and Hematocrit pa diya (Bld)on 10-21-2024 Hematocrit (Bld) [Volume fraction] 58.4 % High 41.0-52.0 [facility] Comment on above: Performed By: #### 2 [id number] #### FRANK CASTILLO ([id number]) [facility] ([facility]) [address] [place] [id number] Hemoglobin (Bld) [Mass/Vol] 18.6 g/dL High 13.5-17.5 [facility] Comment on above: Performed By: #### 2 [id number] #### FRANK CASTILLO ([id number]) [facility] ([facility]) [address] [place] [address] Prostate specific Agon 10-21 Prostate specific Ag [Mass/Vol] 3.39 ng/mL Normal <=4.00 [facility] Comment on above: Order Comment: The DA requires that the method used for PSA assay be reported to the physician. Values obtained with different assay methods must not be used interchangeably. This test was performed at [facility] using the Frugoton PSA assay is a two-site immunoenzymatic sandwich assay. The assay is approved for measurement of prostate-specific antigen (PSA)in serum and may be used in conjunction with a digital rectal examination in men 50 years and older as an aid in detection of prostate cancer. 8-Gonlj-lqysehpjt inhibitors (e.g. Proscar, Finasteride, Avodart, Dutasteride and Paola) for the treatment of BPH have been shown to lower PSA levels by an average of 50% after 6 months of treatment. Performed By: #### 2 857-1 #### FRANK CASTILLO ([id number]) [facility] ([facility] [address] [place] [id number] Testosterone Free/Testostero ne.total [Mass fraction]on 10-21-2024 Testosterone [Mass/Vol] 599 ng/dL Normal 250-1100 [facility] Comment on above: Result Comment: For additional information, please refer to http://education.[employer]/faq/ [email or web address] (This link is being provided for informational/ educational purposes only.) This test was developed and its analytical performance characteristics have been determined by [facility] [place] [place]. It has not been cleared or approved by the U.S. Food and Drug Administration. This assay has been validated pursuant to the CLIA regulations and is used for clinical purposes. Performed By: #### 1 5432-8 #### QUEST CHANTL ([id number]) [id number] [facility] [address] [place] Testosterone Free [Mass/Vol] 94.6 pg/mL Normal 35.0-155.0 [facility] Comment on above: Result Comment: This test was developed and its analytical performance characteristics have been determined by [facility] [place] [place]. It has not been cleared or approved by the U.S. Food and Drug Administration. This assay has been validated pursuant to the CLIA regulations and is used for clinical purposes. Performed By: #### 1 5432-8 #### QUEST CHANTL ([id number]) [id number] [facility] [address] [place] Anirudh 08-07-2024 TOMAS Telephone (GENNAREN) MATT CHRISTIANSON ([id number]) 1970 [place] Date Time Provider Department 08/07/24 JENIFFER JOSE During your visit today, we recorded the following information about you: Ramonita Vallejo, SADI 08/07/2024 1:48 PM Signed Patient phoned in and left a , he states he forgot his orders but is headed this way for his CT scans, he would like to confirm that the CT orders are in the computer and they can complete his scans. left for patient confirming orders are in the system and [facility] radiology will be able to perform his scans Yoselin Guzman RN 08/08/2024 2:51 PM Signed Patient called for CT scan results from 08/07/24 and recommended follow up. Please advise and call patient back with recommendation. Call back number [phone] (home) [phone] (cell) IMPRESSION: 1. No acute pulmonary process is identified. Elevation of the right hemidiaphragm, with associated atelectasis within the right middle and right lower lobes. Atelectasis is seen within the lingula. No convincing CT evidence for pneumonia. 2. No lynette lymphadenopathy is seen within the chest. 3. No acute abdominal process is identified. 4. 3.1 cm cyst within the lower pole of the left kidney, which contains thin septation. Yoselin Guzman RN 08/08/2024 4:07 PM Signed Jeniffer Jose MD You; Gen Surg [place] Jack Pool4 minutes ago (3:49 PM) No hernia noted - previous diagnosis of pseudohernia stands. Can follow up by phone or my chart in 3 months and if not improved can refer out for further eval but good chance will resolve on its own Spoke with patient and advised of information per provider. Patient verbalized understanding. No further questions at this time. Advised to call if any future problems or concerns. Patient states that the abdomen does feel tender to lie on his left side occasionally. Rates discomfort 3/10. The bulge is still present to left side. Matt verbalized concern that his mother had an aortic aneurysm and his father and his brother also has a stent for abdominal aortic aneurysms as well. Advised patient to let us know if he has any worsening symptoms or concerns. Matt verbalized understanding and states he will call if his symptoms persist. Message routed to inform Dr Jose. Encounter closed. Allergies As of Date: 08/07/2024 Noted Allergy Reaction CEPHALEXIN 10/05/2018 5 - Intolerance 14 - Other: See Comments Date Reviewed: 07/25/2024 Reviewed by: Jeniffer Jose MD - Fully Assessed Prescriptions as of 08/08/2024 - XYOSTED 100 mg/0.5 mL AutoInjector Inject 100 mg subcutaneously one time a week. - Tadalafil (CIALIS) 20 mg tablet Take 20 mg by mouth once daily as needed. - sildenafil (VIAGRA) 50 mg tablet TAKE 1 TABLET BY MOUTH ONCE DAILY NEEDED 30 MINUTES prior to sexual activity - minocycline (MINOCIN, DYNACIN) 50 mg capsule Take 50 mg by mouth. - losartan (COZAAR) 50 mg tablet Take 50 mg by mouth once daily. - anastrozole (ARIMIDEX) 1 mg tablet Take 1 mg by mouth. Problem List As Of Date 08/07/2024 Noted Resolved Abdominal wall bulge [R19.00] 07/27/2024 Encounter Status:Closed by RAMONITA VALLEJO on 08/07/24 Normal [facility] CT ABDOMEN W IVCONon 024 CT ABDOMEN W IVCON * * *Final Report* * * DATE OF EXAM: Aug 07 2024 2:41PM [facility] 0533 - CT ABDOMEN W IVCON / PROCEDURE REASON: K46.9-Hernia * * * * Physician Interpretation * * * * EXAMINATION: CT CHEST WITH IV CONTRAST AND CT ABDOMEN WITH IV CONTRAST CLINICAL HISTORY: Suspected left pseudohernia after violent cough TECHNIQUE: CT of the chest from the thoracic inlet to the upper abdomen was performed following administration of IV contrast. CT of the abdomen was performed using standard technique, scanning from just above the dome of the diaphragm to the iliac crest. MQ: CTACW_4 Contrast: IV: 100 ml of Omnipaque 350 Oral: 450 ml of Omni 240 10-25ml diluted with water CT Radiation dose: Integrated Dose-length product (DLP) for this visit = 1654 mGy*cm. CT Dose Reduction Employed: Automated exposure control(AEC) and iterative recon COMPARISON: None. RESULT: Limitations: None. Chest: Lines, tubes, and devices: None. Lung parenchyma and pleura: There is no pleural effusion. Elevation the right hemidiaphragm, with associated atelectasis seen within the right middle and right lower lobes. There is no pneumothorax or endobronchial lesion. Atelectasis is seen within the lingula. No convincing CT evidence for pneumonia. Thoracic inlet, heart, and mediastinum: There are no pathologically enlarged axillary or mediastinal lymph nodes. Prominent, less than 1 cm bilateral hilar lymph nodes, likely reactive. The heart is normal in size. There is no significant pericardial effusion. The main pulmonary is dilated, measuring approximately 3.2 cm, which can be seen with pulmonary arterial hypertension. Abdomen: Liver: There is no focal discrete hepatic mass. Biliary: No bile duct dilation. The gallbladder is grossly unremarkable. Spleen: No mass. No splenomegaly. A tiny splenule is seen within the left upper quadrant. Pancreas: There is no obvious focal discrete pancreatic mass or pancreatic ductal dilation. Adrenals:No mass. Kidneys: There is nonspecific bilateral perinephric fat stranding. There is no hydronephrosis or perinephric fluid collection. There is an approximately 3.1 x 2.4 cm cyst seen within the lower pole of the left kidney, which contains thin septation (series 306, image #68). GI tract: There are no dilated loops of bowel to suggest obstruction. Lymph nodes: Prominent, less than 1 cm abdominal lymph nodes are likely reactive. Mesentery/Peritoneum: No abdominal ascites. Vasculature: No abdominal aortic aneurysm. Atherosclerotic disease. Bones/Soft Tissues: There is atrophy of the left paraspinous musculature, when compared to the right. Predominantly left shoulder osteoarthritis. Vacuum disc phenomena is seen at multiple levels within the spine. IMPRESSION: 1. No acute pulmonary process is identified. Elevation of the right hemidiaphragm, with associated atelectasis within the right middle and right lower lobes. Atelectasis is seen within the lingula. No convincing CT evidence for pneumonia. 2. No lynette lymphadenopathy is seen within the chest. 3. No acute abdominal process is identified. 4. 3.1 cm cyst within the lower pole of the left kidney, which contains thin septation. Crane Crew Supervisor: [facility] Transcribe Date/Time: Aug 07 2024 3:25P Dictated by : KENDAL YEN MD This examination was interpreted and the report reviewed and electronically signed by: KENDAL YEN MD on Aug 07 2024 4:25PM EST [id number] Normal [facility] CT Abdomen W contrast Julienne 1 * * *Final Report* * * DATE OF EXAM: Aug 07 2024 2:41PM [facility] 0533 - CT ABDOMEN W IVCON / PROCEDURE REASON: K46.9-Hernia * * * * Physician Interpretation * * * * EXAMINATION: CT CHEST WITH IV CONTRAST AND CT ABDOMEN WITH IV CONTRAST CLINICAL HISTORY: Suspected left pseudohernia after violent cough TECHNIQUE: CT of the chest from the thoracic inlet to the upper abdomen was performed following administration of IV contrast. CT of the abdomen was performed using standard technique, scanning from just above the dome of the diaphragm to the iliac crest. MQ: CTACW_4 Contrast: IV: 100 ml of Omnipaque 350 Oral: 450 ml of Omni 240 10-25ml diluted with water CT Radiation dose: Integrated Dose-length product (DLP) for this visit = 1654 mGy*cm. CT Dose Reduction Employed: Automated exposure control(AEC) and iterative recon COMPARISON: None. RESULT: Limitations: None. Chest: Lines, tubes, and devices: None. Lung parenchyma and pleura: There is no pleural effusion. Elevation the right hemidiaphragm, with associated atelectasis seen within the right middle and right lower lobes. There is no pneumothorax or endobronchial lesion. Atelectasis is seen within the lingula. No convincing CT evidence for pneumonia. Thoracic inlet, heart, and mediastinum: There are no pathologically enlarged axillary or mediastinal lymph nodes. Prominent, less than 1 cm bilateral hilar lymph nodes, likely reactive. The heart is normal in size. There is no significant pericardial effusion. The main pulmonary is dilated, measuring approximately 3.2 cm, which can be seen with pulmonary arterial hypertension. Abdomen: Liver: There is no focal discrete hepatic mass. Biliary: No bile duct dilation. The gallbladder is grossly unremarkable. Spleen: No mass. No splenomegaly. A tiny splenule is seen within the left upper quadrant. Pancreas: There is no obvious focal discrete pancreatic mass or pancreatic ductal dilation. Adrenals:No mass. Kidneys: There is nonspecific bilateral perinephric fat stranding. There is no hydronephrosis or perinephric fluid collection. There is an approximately 3.1 x 2.4 cm cyst seen within the lower pole of the left kidney, which contains thin septation (series 306, image #68). GI tract: There are no dilated loops of bowel to suggest obstruction. Lymph nodes: Prominent, less than 1 cm abdominal lymph nodes are likely reactive. Mesentery/Peritoneum: No abdominal ascites. Vasculature: No abdominal aortic aneurysm. Atherosclerotic disease. Bones/Soft Tissues: There is atrophy of the left paraspinous musculature, when compared to the right. Predominantly left shoulder osteoarthritis. Vacuum disc phenomena is seen at multiple levels within the spine. [facility] Provider, [facility] - 08/07/2024 * * *Final Report* * * DATE OF EXAM: Aug 07 2024 2:41PM [facility] 0533 - CT ABDOMEN W IVCON / PROCEDURE REASON: K46.9-Hernia * * * * Physician Interpretation * * * * EXAMINATION: CT CHEST WITH IV CONTRAST AND CT ABDOMEN WITH IV CONTRAST CLINICAL HISTORY: Suspected left pseudohernia after violent cough TECHNIQUE: CT of the chest from the thoracic inlet to the upper abdomen was performed following administration of IV contrast. CT of the abdomen was performed using standard technique, scanning from just above the dome of the diaphragm to the iliac crest. MQ: CTACW_4 Contrast: IV: 100 ml of Omnipaque 350 Oral: 450 ml of Omni 240 10-25ml diluted with water CT Radiation dose: Integrated Dose-length product (DLP) for this visit = 1654 mGy*cm. CT Dose Reduction Employed: Automated exposure control(AEC) and iterative recon COMPARISON: None. RESULT: Limitations: None. Chest: Lines, tubes, and devices: None. Lung parenchyma and pleura: There is no pleural effusion. Elevation the right hemidiaphragm, with associated atelectasis seen within the right middle and right lower lobes. There is no pneumothorax or endobronchial lesion. Atelectasis is seen within the lingula. No convincing CT evidence for pneumonia. Thoracic inlet, heart, and mediastinum: There are no pathologically enlarged axillary or mediastinal lymph nodes. Prominent, less than 1 cm bilateral hilar lymph nodes, likely reactive. The heart is normal in size. There is no significant pericardial effusion. The main pulmonary is dilated, measuring approximately 3.2 cm, which can be seen with pulmonary arterial hypertension. Abdomen: Liver: There is no focal discrete hepatic mass. Biliary: No bile duct dilation. The gallbladder is grossly unremarkable. Spleen: No mass. No splenomegaly. A tiny splenule is seen within the left upper quadrant. Pancreas: There is no obvious focal discrete pancreatic mass or pancreatic ductal dilation. Adrenals:No mass. Kidneys: There is nonspecific bilateral perinephric fat stranding. There is no hydronephrosis or perinephric fluid collection. There is an approximately 3.1 x 2.4 cm cyst seen within the lower pole of the left kidney, which contains thin septation (series 306, image #68). GI tract: There are no dilated loops of bowel to suggest obstruction. Lymph nodes: Prominent, less than 1 cm abdominal lymph nodes are likely reactive. Mesentery/Peritoneum: No abdominal ascites. Vasculature: No abdominal aortic aneurysm. Atherosclerotic disease. Bones/Soft Tissues: There is atrophy of the left paraspinous musculature, when compared to the right. Predominantly left shoulder osteoarthritis. Vacuum disc phenomena is seen at multiple levels within the spine. IMPRESSION IMPRESSION: 1. No acute pulmonary process is identified. Elevation of the right hemidiaphragm, with associated atelectasis within the right middle and right lower lobes. Atelectasis is seen within the lingula. No convincing CT evidence for pneumonia. 2. No lynette lymphadenopathy is seen within the chest. 3. No acute abdominal process is identified. 4. 3.1 cm cyst within the lower pole of the left kidney, which contains thin septation. Crane Crew Supervisor: KARO Transcribe Date/Time: Aug 07 2024 3:25P Dictated by : KENDAL YEN MD This examination was interpreted and the report reviewed and electronically signed by: KENDAL YEN MD on Aug 07 2024 4:25PM EST [facility] CT CHEST W IVCONon 4 CT CHEST W IVCON * * *Final Report* * * DATE OF EXAM: Aug 07 2024 2:41PM [facility] 0539 - CT CHEST W IVCON / PROCEDURE REASON: K46.9-Hernia * * * * Physician Interpretation * * * * EXAMINATION: CT CHEST WITH IV CONTRAST AND CT ABDOMEN WITH IV CONTRAST CLINICAL HISTORY: Suspected left pseudohernia after violent cough TECHNIQUE: CT of the chest from the thoracic inlet to the upper abdomen was performed following administration of IV contrast. CT of the abdomen was performed using standard technique, scanning from just above the dome of the diaphragm to the iliac crest. MQ: CTACW_4 Contrast: IV: 100 ml of Omnipaque 350 Oral: 450 ml of Omni 240 10-25ml diluted with water CT Radiation dose: Integrated Dose-length product (DLP) for this visit = 1654 mGy*cm. CT Dose Reduction Employed: Automated exposure control(AEC) and iterative recon COMPARISON: None. RESULT: Limitations: None. Chest: Lines, tubes, and devices: None. Lung parenchyma and pleura: There is no pleural effusion. Elevation the right hemidiaphragm, with associated atelectasis seen within the right middle and right lower lobes. There is no pneumothorax or endobronchial lesion. Atelectasis is seen within the lingula. No convincing CT evidence for pneumonia. Thoracic inlet, heart, and mediastinum: There are no pathologically enlarged axillary or mediastinal lymph nodes. Prominent, less than 1 cm bilateral hilar lymph nodes, likely reactive. The heart is normal in size. There is no significant pericardial effusion. The main pulmonary is dilated, measuring approximately 3.2 cm, which can be seen with pulmonary arterial hypertension. Abdomen: Liver: There is no focal discrete hepatic mass. Biliary: No bile duct dilation. The gallbladder is grossly unremarkable. Spleen: No mass. No splenomegaly. A tiny splenule is seen within the left upper quadrant. Pancreas: There is no obvious focal discrete pancreatic mass or pancreatic ductal dilation. Adrenals:No mass. Kidneys: There is nonspecific bilateral perinephric fat stranding. There is no hydronephrosis or perinephric fluid collection. There is an approximately 3.1 x 2.4 cm cyst seen within the lower pole of the left kidney, which contains thin septation (series 306, image #68). GI tract: There are no dilated loops of bowel to suggest obstruction. Lymph nodes: Prominent, less than 1 cm abdominal lymph nodes are likely reactive. Mesentery/Peritoneum: No abdominal ascites. Vasculature: No abdominal aortic aneurysm. Atherosclerotic disease. Bones/Soft Tissues: There is atrophy of the left paraspinous musculature, when compared to the right. Predominantly left shoulder osteoarthritis. Vacuum disc phenomena is seen at multiple levels within the spine. IMPRESSION: 1. No acute pulmonary process is identified. Elevation of the right hemidiaphragm, with associated atelectasis within the right middle and right lower lobes. Atelectasis is seen within the lingula. No convincing CT evidence for pneumonia. 2. No lynette lymphadenopathy is seen within the chest. 3. No acute abdominal process is identified. 4. 3.1 cm cyst within the lower pole of the left kidney, which contains thin septation. Crane Crew Supervisor: KARO Transcribe Date/Time: Aug 07 2024 3:25P Dictated by : KENDAL YEN MD This examination was interpreted and the report reviewed and electronically signed by: KENDAL YEN MD on Aug 07 2024 4:25PM EST [id number] Normal [facility] CT Chest W contrast Julienne * * *Final Report* * * DATE OF EXAM: Aug 07 2024 2:41PM [facility] 0539 - CT CHEST W IVCON / PROCEDURE REASON: K46.9-Hernia * * * * Physician Interpretation * * * * EXAMINATION: CT CHEST WITH IV CONTRAST AND CT ABDOMEN WITH IV CONTRAST CLINICAL HISTORY: Suspected left pseudohernia after violent cough TECHNIQUE: CT of the chest from the thoracic inlet to the upper abdomen was performed following administration of IV contrast. CT of the abdomen was performed using standard technique, scanning from just above the dome of the diaphragm to the iliac crest. MQ: CTACW_4 Contrast: IV: 100 ml of Omnipaque 350 Oral: 450 ml of Omni 240 10-25ml diluted with water CT Radiation dose: Integrated Dose-length product (DLP) for this visit = 1654 mGy*cm. CT Dose Reduction Employed: Automated exposure control(AEC) and iterative recon COMPARISON: None. RESULT: Limitations: None. Chest: Lines, tubes, and devices: None. Lung parenchyma and pleura: There is no pleural effusion. Elevation the right hemidiaphragm, with associated atelectasis seen within the right middle and right lower lobes. There is no pneumothorax or endobronchial lesion. Atelectasis is seen within the lingula. No convincing CT evidence for pneumonia. Thoracic inlet, heart, and mediastinum: There are no pathologically enlarged axillary or mediastinal lymph nodes. Prominent, less than 1 cm bilateral hilar lymph nodes, likely reactive. The heart is normal in size. There is no significant pericardial effusion. The main pulmonary is dilated, measuring approximately 3.2 cm, which can be seen with pulmonary arterial hypertension. Abdomen: Liver: There is no focal discrete hepatic mass. Biliary: No bile duct dilation. The gallbladder is grossly unremarkable. Spleen: No mass. No splenomegaly. A tiny splenule is seen within the left upper quadrant. Pancreas: There is no obvious focal discrete pancreatic mass or pancreatic ductal dilation. Adrenals:No mass. Kidneys: There is nonspecific bilateral perinephric fat stranding. There is no hydronephrosis or perinephric fluid collection. There is an approximately 3.1 x 2.4 cm cyst seen within the lower pole of the left kidney, which contains thin septation (series 306, image #68). GI tract: There are no dilated loops of bowel to suggest obstruction. Lymph nodes: Prominent, less than 1 cm abdominal lymph nodes are likely reactive. Mesentery/Peritoneum: No abdominal ascites. Vasculature: No abdominal aortic aneurysm. Atherosclerotic disease. Bones/Soft Tissues: There is atrophy of the left paraspinous musculature, when compared to the right. Predominantly left shoulder osteoarthritis. Vacuum disc phenomena is seen at multiple levels within the spine. [facility] Provider, [facility] - 08/07/2024 * * *Final Report* * * DATE OF EXAM: Aug 07 2024 2:41PM [facility] 0539 - CT CHEST W IVCON / PROCEDURE REASON: K46.9-Hernia * * * * Physician Interpretation * * * * EXAMINATION: CT CHEST WITH IV CONTRAST AND CT ABDOMEN WITH IV CONTRAST CLINICAL HISTORY: Suspected left pseudohernia after violent cough TECHNIQUE: CT of the chest from the thoracic inlet to the upper abdomen was performed following administration of IV contrast. CT of the abdomen was performed using standard technique, scanning from just above the dome of the diaphragm to the iliac crest. MQ: CTACW_4 Contrast: IV: 100 ml of Omnipaque 350 Oral: 450 ml of Omni 240 10-25ml diluted with water CT Radiation dose: Integrated Dose-length product (DLP) for this visit = 1654 mGy*cm. CT Dose Reduction Employed: Automated exposure control(AEC) and iterative recon COMPARISON: None. RESULT: Limitations: None. Chest: Lines, tubes, and devices: None. Lung parenchyma and pleura: There is no pleural effusion. Elevation the right hemidiaphragm, with associated atelectasis seen within the right middle and right lower lobes. There is no pneumothorax or endobronchial lesion. Atelectasis is seen within the lingula. No convincing CT evidence for pneumonia. Thoracic inlet, heart, and mediastinum: There are no pathologically enlarged axillary or mediastinal lymph nodes. Prominent, less than 1 cm bilateral hilar lymph nodes, likely reactive. The heart is normal in size. There is no significant pericardial effusion. The main pulmonary is dilated, measuring approximately 3.2 cm, which can be seen with pulmonary arterial hypertension. Abdomen: Liver: There is no focal discrete hepatic mass. Biliary: No bile duct dilation. The gallbladder is grossly unremarkable. Spleen: No mass. No splenomegaly. A tiny splenule is seen within the left upper quadrant. Pancreas: There is no obvious focal discrete pancreatic mass or pancreatic ductal dilation. Adrenals:No mass. Kidneys: There is nonspecific bilateral perinephric fat stranding. There is no hydronephrosis or perinephric fluid collection. There is an approximately 3.1 x 2.4 cm cyst seen within the lower pole of the left kidney, which contains thin septation (series 306, image #68). GI tract: There are no dilated loops of bowel to suggest obstruction. Lymph nodes: Prominent, less than 1 cm abdominal lymph nodes are likely reactive. Mesentery/Peritoneum: No abdominal ascites. Vasculature: No abdominal aortic aneurysm. Atherosclerotic disease. Bones/Soft Tissues: There is atrophy of the left paraspinous musculature, when compared to the right. Predominantly left shoulder osteoarthritis. Vacuum disc phenomena is seen at multiple levels within the spine. IMPRESSION IMPRESSION: 1. No acute pulmonary process is identified. Elevation of the right hemidiaphragm, with associated atelectasis within the right middle and right lower lobes. Atelectasis is seen within the lingula. No convincing CT evidence for pneumonia. 2. No lynette lymphadenopathy is seen within the chest. 3. No acute abdominal process is identified. 4. 3.1 cm cyst within the lower pole of the left kidney, which contains thin septation. Crane Crew Supervisor: KARO Transcribe Date/Time: Aug 07 2024 3:25P Dictated by : KENDAL YEN MD This examination was interpreted and the report reviewed and electronically signed by: KENDAL YEN MD on Aug 07 2024 4:25PM [facility] NURSING PROGon 08-07-2024 NURSING PROG HNO ID: [id number] Author: LUCIEN LEÓN RN Service: Nursing Author Type: Registered Nurse Type: Nursing Progress Note Filed: 08/07/2024 14:30 Note Text: Radiology Service Progress Note DATE OF SERVICE: August 07, 2024 TIME: 2:30 PM PATIENT WEIGHT: 355 LBS PATIENT IDENTITY VERIFICATION COMPLETED USING TWO (2) STANDARD IDENTIFIERS: Name and Date of confirmed by patient verbally and Name and Date of confirmed by identification band. FALL SCREENING: Has the patient had 2 falls in the last year or 1 fall with injury or currently using an Ambulatory Assistive Device (Walker, Cane, Wheelchair, Crutches, etc.)? No PATIENT GENDER DATA: Male ALLERGIES: Reviewed and unchanged CONTRAST ALLERGY: No EXAM: CT -CONTRAST INDUCED NEPHROPATHY RISK FACTORS: Not applicable CREATININE: Creatinine Date Value Ref Range Status 05/02/2021 0.98 0.73 - 1.22 mg/dL Final eGFR-All Other Races Date Value Ref Range Status 05/02/2021 >60 Final Comment: eGFR (Estimated GFR) Units of measure: mL/min/1.73 meters squared eGFR is derived from the reexpressed MDRD Study equation using the following parameters: serum creatinine, age, gender and race. The creatinine assay has been calibrated to be traceable to IDMS. An eGFR <60 mL/min/1.73m2 for >3 months is consistent with chronic kidney disease. Refer to KDOQI guidelines for clinical interpretation. In patients with unstable renal function, e.g. those with acute kidney injury, the eGFR may not accurately reflect actual GFR. eGFR- Date Value Ref Range Status 05/02/2021 >60 Final P.O.C.T. RESULTS: N/A August 07, 2024 TREATMENT: N/A IV SITE: Ambulatory: A peripheral IV was started in the Right with a Angio cath: 22 gauge. IV SITE APPEARANCE: Clean,Dry and Intact SIGNATURE: Lucien León RN PATIENT NAME: Matt Christianson DATE: August 07, 2024 TIME: 2:30 PM Normal [facility] No Panel Informationon 08-07 IMPRESSION: 1. No acute pulmonary process is identified. Elevation of the right hemidiaphragm, with associated atelectasis within the right middle and right lower lobes. Atelectasis is seen within the lingula. No convincing CT evidence for pneumonia. 2. No lynette lymphadenopathy is seen within the chest. 3. No acute abdominal process is identified. 4. 3.1 cm cyst within the lower pole of the left kidney, which contains thin septation. Crane Crew Supervisor: KARO Transcribe Date/Time: Aug 07 2024 3:25P Dictated by : KENDAL YEN MD This examination was interpreted and the report reviewed and electronically signed by: KENDAL YEN MD on Aug 07 2024 4:25PM [facility] RADIOLOGY Radiology Study observation (narrative) [facility] No Panel InformationOrdered By: Ccf Provider on 08-07-2024 [facility] CBC W/Diff, Automatedon 07-11 Hematocrit (Bld) [Volume fraction] 56.7 % High 40-54 [facility] Comment on above: Performed By: #### L 500.4100, L100.0100, L500.4050 #### [facility] [address] [place], [address] Absolute Lymph 2.15 X10 3/uL Normal 0.83-4.51 [facility] Comment on above: Performed By: #### L 500.4100, L100.0100, L500.4050 #### [facility] [address] [place], [address] Absolute Neut 4.2 X10 3/uL Normal 2.0-7.7 [facility] Comment on above: Performed By: #### L 500.4100, L100.0100, L500.4050 #### [facility] [address] [place], [address] Basophils/100 WBC (Bld) 0.7 % Normal 0-1 [facility] Comment on above: Performed By: #### L 500.4100, L100.0100, L500.4050 #### [facility] [address] [place], [address] Eosinophils/100 WBC (Bld) 2.2 % Normal 0-5 [facility] Comment on above: Performed By: #### L 500.4100, L100.0100, L500.4050 #### [facility] [address] [place], [address] Erythrocyte distribution width (RBC) [Ratio] 14.4 % Normal 11.6-14.6 [facility] Comment on above: Performed By: #### L 500.4100, L100.0100, L500.4050 #### [facility] [address] [place], [address] Hemoglobin (Bld) [Mass/Vol] 18.5 g/dL Invalid Interpretation Code 13.0-16.5 [facility] Comment on above: Performed By: #### L 500.4100, L100.0100, L500.4050 #### [facility] [address] [place], [address] IG% 0.400 Normal 0.0-0.9 [facility] Comment on above: Result Comment: IG% - Immature Granulocytes (promyelocytes, myelocytes and metamyelocytes) > 1% indicates that a LEFT SHIFT is Present. Performed By: #### L 500.4100, L100.0100, L500.4050 #### [facility] [address] [place], [address] Lymphocytes/100 WBC (Bld) 29.6 % Normal 19-41 [facility] Comment on above: Performed By: #### L 500.4100, L100.0100, L500.4050 #### [facility] [address] [place], [address] MCH (RBC) [Entitic mass] 29.6 pg Normal 27.0-32.0 [facility] Comment on above: Performed By: #### L 500.4100, L100.0100, L500.4050 #### [facility] [address] [place], [address] MCHC (RBC) [Mass/Vol] 32.6 g/dL Normal 32-36 [facility] Comment on above: Performed By: #### L 500.4100, L100.0100, L500.4050 #### [facility] [address] [place], [address] MCV (RBC) [Entitic vol] 90.6 fL Normal 80-94 [facility] Comment on above: Performed By: #### L 500.4100, L100.0100, L500.4050 #### [facility] [address] [place], [address] Monocytes/100 WBC (Bld) 9.8 % Normal 0-10 [facility] Comment on above: Performed By: #### L 500.4100, L100.0100, L500.4050 #### [facility] [address] [place], [address] Neutrophils/100 WBC (Bld) 57.3 % Normal 47-70 [facility] Comment on above: Performed By: #### L 500.4100, L100.0100, L500.4050 #### [facility] [address] [place], [address] Nucleated RBC (Bld) [#/Vol] 0 10*3/uL Normal 0-5 [facility] Comment on above: Performed By: #### L 500.4100, L100.0100, L500.4050 #### [facility] [address] [place], [address] Platelet mean volume (Bld) [Entitic vol] 11.1 fL Normal 6.2-12.0 [facility] Comment on above: Performed By: #### L 500.4100, L100.0100, L500.4050 #### [facility] [address] [place], [address] Platelets (Bld) [#/Vol] 244 10*3/uL Normal 150-450 [facility] Comment on above: Performed By: #### L 500.4100, L100.0100, L500.4050 #### [facility] [address] [place], [address] RBC (Bld) [#/Vol] 6.26 10*6/uL High 4.6-6.2 [facility] Comment on above: Performed By: #### L 500.4100, L100.0100, L500.4050 #### [facility] [address] [place], [address] RDW SD 47.7 fl High 35.1-43.9 [facility] Comment on above: Performed By: #### L 500.4100, L100.0100, L500.4050 #### [facility] [address] [place], [address] WBC (Bld) [#/Vol] 7.3 10*3/uL Normal 4.4-11.0 [facility] Comment on above: Performed By: #### L 500.4100, L100.0100, L500.4050 #### [facility] [address] [place], [address] Comprehensive Metabolic [facility] 07-26-2024 Albumin [Mass/Vol] 3.8 g/dL Normal 3.2-5.0 [facility] Comment on above: Performed By: #### L 500.4100, L100.0100, L500.4050 #### [facility] [address] [place], [address] Albumin/Globulin [Mass ratio] 1.0 {ratio} Normal 0.9-2.4 [facility] Comment on above: Performed By: #### L 500.4100, L100.0100, L500.4050 #### [facility] [address] [place], [address] ALK P 153 U/L High 45-117 [facility] Comment on above: Performed By: #### L 500.4100, L100.0100, L500.4050 #### [facility] [address] [place], [address] ALT [Catalytic activity/Vol] 38 U/L Normal 16-61 [facility] Comment on above: Performed By: #### L 500.4100, L100.0100, L500.4050 #### [facility] [address] [place], [address] AST [Catalytic activity/Vol] 36 U/L Normal 15-37 [facility] Comment on above: Performed By: #### L 500.4100, L100.0100, L500.4050 #### [facility] [address] [place], [address] Bilirubin [Mass/Vol] 0.50 mg/dL Normal 0.20-1.00 [facility] Comment on above: Result Comment: For patients on eltrombopag therapy, use of Dimension [place] TBIL is not recommended. Performed By: #### L 500.4100, L100.0100, L500.4050 #### [facility] [address] [place], [address] BUN/CRE 14.4 RATIO Normal 10-20 [facility] Comment on above: Performed By: #### L 500.4100, L100.0100, L500.4050 #### [facility] [address] [place], [address] CA,Total 9.4 mg/dL Normal 8.5-10.1 [facility] Comment on above: Performed By: #### L 500.4100, L100.0100, L500.4050 #### [facility] [address] [place], [address] Chloride [Moles/Vol] 105 mmol/L Normal 98-107 [facility] Comment on above: Performed By: #### L 500.4100, L100.0100, L500.4050 #### [facility] [address] [place], [address] CO2 [Moles/Vol] 25.0 mmol/L Normal 21.0-32.0 [facility] Comment on above: Performed By: #### L 500.4100, L100.0100, L500.4050 #### [facility] [address] [place], [address] Creatinine [Mass/Vol] 1.25 mg/dL Normal 0.70-1.30 [facility] Comment on above: Result Comment: The validity of the calculated GFR GFRAA in patients over 70 years has not been determined. Clinical correlation is essential. Performed By: #### L 500.4100, L100.0100, L500.4050 #### [facility] [address] [place], [address] EST GFR - AA 77 mL/min Normal >60 [facility] Comment on above: Result Comment: Afri can Indonesian GFR Calc Performed By: #### L 500.4100, L100.0100, L500.4050 #### [facility] [address] [place], [address] GAP 7 Normal 5-15 [facility] Comment on above: Performed By: #### L 500.4100, L100.0100, L500.4050 #### [facility] [address] [place], [address] GFR/1.73 sq M.predicted among non-blacks MDRD (S/P/Bld) [Vol rate/Area] 64 mL/min/{1.73_m2} Normal >60 [facility] Comment on above: Result Comment: Non- GFR Calc Performed By: #### L 500.4100, L100.0100, L500.4050 #### [facility] [address] [place], [address] Globulin (S) [Mass/Vol] 3.8 g/dL Normal 2.2-4.2 [facility] Comment on above: Performed By: #### L 500.4100, L100.0100, L500.4050 #### [facility] [address] [place], [address] Glucose [Mass/Vol] 102 mg/dL Normal 74-106 [facility] Comment on above: Result Comment: Fast ing Glucose result from 100 to 125 mg/dL suggests IMPAIRED HOMEOSTASIS per A.D.A. criteria. Performed By: #### L 500.4100, L100.0100, L500.4050 #### [facility] [address] [place] [place], [address] Potassium [Moles/Vol] 4.3 mmol/L Normal 3.5-5.1 [facility] Comment on above: Performed By: #### L 500.4100, L100.0100, L500.4050 #### [facility] [address] [place], [address] Sodium [Moles/Vol] 137 mmol/L Normal 136-145 [facility] Comment on above: Performed By: #### L 500.4100, L100.0100, L500.4050 #### [facility] [address] [place], [address] T PROT 7.6 g/dL Normal 6.4-8.2 [facility] Comment on above: Performed By: #### L 500.4100, L100.0100, L500.4050 #### [facility] [address] [place], [address] Urea nitrogen [Mass/Vol] 18 mg/dL Normal 7-18 [facility] Comment on above: Performed By: #### L 500.4100, L100.0100, L500.4050 #### [facility] [address] [place], [address] Lipid Profileon 07-26-2024 Cholesterol [Mass/Vol] 156 mg/dL Normal 200 [facility] Comment on above: Result Comment: <200 mg/dL Desirable 200-240 mg/dL Borderline >240 mg/dL High Risk Performed By: #### L 500.4100, L100.0100, L500.4050 #### [facility] [address] [place], [address] Cholesterol in HDL [Mass/Vol] 29 mg/dL Low [facility] Comment on above: Result Comment: The drugs N-Acetylcysteine and Metamizole may falsely depress this assay. Reference Range HDL <40 mg/dL Low HDL Cholesterol HDL >or= 60 mg/dL High HDL Cholesterol Performed By: #### L 500.4100, L100.0100, L500.4050 #### [facility] [address] [place], [address] Cholesterol in LDL [Mass/Vol] 89 mg/dL Normal 0-130 [facility] Comment on above: Performed By: #### L 500.4100, L100.0100, L500.4050 #### [facility] [address] [place], [address] Cholesterol in VLDL [Mass/Vol] 38 mg/dL Normal 5-40 [facility] Comment on above: Performed By: #### L 500.4100, L100.0100, L500.4050 #### [facility] [address] [place], [address] Triglyceride [Mass/Vol] 189 mg/dL Normal [facility] Comment on above: Result Comment: The drugs N-Acetylcysteine and Metamizole may falsely depress this assay. Serum Triglycerides Reference Interval Normal <150 mg/dL Borderline high 150 - 199 mg/dL High 200 - 499 mg/dL Very High > or = 500 mg/dL Performed By: #### L 500.4100, L100.0100, L500.4050 #### [facility] [address] [place], [address] CNOVon 07-25-2024 CNOV Office Visit ([facility] ) MATT CHRISTIANSON ([id number]) 1970 M Date Time Provider Department 07/25/24 8:30 AM JENIFFER JOSE During your visit today, we recorded the following information about you: Pulse Blood pressure Weight Height 90/minute 168/106 161 kg 1.905 m Jeniffer Jose MD 07/27/2024 1:05 PM Signed Assessment IMPRESSION AND PLAN: 53 year old wm with left flank asymmetry, clinically pseudohernia, offered obs vs ct, pt prefers ct, [facility]. In case pseudohernia confirmed, likely result of traumatic coughing and likely to spontaneously resolve over next several months HPI: Matt Christianson is a 53 year old male,He presents for the evaluation of left flank bulge. Feels may have hernia. In [place] had a violent cough, one specific episode so severe that he noted severe pain left costal margin, then costal margin became black and blue. Denies any pain but thinks he feels a hole and notes a bulge that is enlarging, resolves when supine PAST MEDICAL HISTORY Diagnosis Date Erectile dysfunction Essential hypertension Sleep apnea PAST SURGICAL HISTORY Procedure Laterality Date PAST SURGICAL HISTORY OF Right 3 knee scopes; torn meniscus 3 seperate times REPAIR INCISIONAL HERNIA,REDUCIBLE 2009 FAMILY HISTORY Problem Relation Age of Onset Lung Cancer Mother other (bypass surgery) Father Arthritis Father Aneurysm Father CURRENT MEDICATIONS: XYOSTED 100 mg/0.5 mL AutoInjector Inject 100 mg subcutaneously one time a week. Tadalafil (CIALIS) 20 mg tablet Take 20 mg by mouth once daily as needed. sildenafil (VIAGRA) 50 mg tablet TAKE 1 TABLET BY MOUTH ONCE DAILY NEEDED 30 MINUTES prior to sexual activity anastrozole (ARIMIDEX) 1 mg tablet Take 1 mg by mouth. minocycline (MINOCIN, DYNACIN) 50 mg capsule Take 50 mg by mouth. losartan (COZAAR) 50 mg tablet Take 50 mg by mouth once daily. iv contrast (will be provided with radiology test) CT Chest Abdomen-Inject, intravenously, once for 1 dose.No IV access, insert saline lock prior to the beginning of sedation, infusion, injection of imaging exam. Discontinue saline lock post exam. If Pt. has a central line or IVAD, may access for administration according to line specific nursing protocol. Once exam is complete flush line and de-access according to line specific nursing protocol in the CT contrast administration guidelines link. enteric contrast (will be provided with radiology test) For CT Chest Abdomen W IVCON order Administer, As Directed One Time Only, via Oral, Rectal, both Oral and Rectal, Enteric Tube, Stoma or Indwelling Catheter, Enteric Contrast as designated per enteric contrast guidelines CURRENT ALLERGIES: ALLERGIES Allergen Reactions Cephalexin Intolerance, Other: See Comments Social History Tobacco Use Smoking status: Some Days Types: Cigarettes Smokeless tobacco: Current Types: Chew Tobacco comments: snuff Vaping Use Vaping status: Never Used Substance Use Topics Alcohol use: Yes Drug use: Never Ros: as above EXAM: BP 168/106 Pulse 90 Ht 190.5 cm (6' 3) Wt (!) 161 kg (355 lb) BMI 44.37 kg/m? BP 168/106 Pulse 90 Ht 190.5 cm (6' 3) Wt (!) 161 kg (355 lb) BMI 44.37 kg/m? Body mass index is 44.37 kg/m?. General appearance: Well appearing, alert, in no acute distress Head: Normocephalic, atraumatic Eyes: Anicteric sclera , Pupils are equally round and reactive Neck: No JVD, Trachea midline Lungs:Clear to auscultation, no wheezing or rhonchi Heart: RRR without murmur, gallop, or rubs. No ectopy Abdomen: Abdomen soft, non-tender. Non distended. No masses, organomegaly, left lateral abd/flank, just inferior to costal margin with mild visible asymmetry when standing, no palp defect no change with valsalva, not appreciated when supine Extremities:No clubbing, cyanosis, or edema. Neuro: Alert and oriented times three, No apparent distress RADIOLOGY: none Jeniffer Jose MD 07/25/2024 9:09 AM Referring Provider: SELF [200] Allergies As of Date: 07/25/2024 Noted Allergy Reaction CEPHALEXIN 10/05/2018 5 - Intolerance 14 - Other: See Comments Date Reviewed: 07/25/2024 Reviewed by: Jeniffer Jose MD - Fully Assessed Reason for Visit: Consult [173] Cmt: L inguinal hernia Primary Visit Diagnosis:Hernia [K46.9] Other Visit Diagnosis:Abdominal wall bulge [R19.00] Order(s):CT CHEST W IVCON [[id number]] Order #: [id number] FUTURE CT ABDOMEN W IVCON [[id number]] Order #: [id number] FUTURE [] iv contrast (will be provided with radiology test)CT Chest Abdomen-Inject, intravenously, once for 1 dose.No IV access, insert saline lock prior to the beginning of sedation, infusion, injection of imaging exam. Discontinue saline lock post exam. If Pt. has a central line or IVAD, may access for administration accord (more content not included)... Normal [facility] Hemoglobin and Hematocrit pa diya (Bld)on 05-01-2024 Hematocrit (Bld) [Volume fraction] 56.3 % High 41.0-52.0 [facility] Comment on above: Performed By: #### 2 4360-0 #### FRANK CASTILLO ([id number]) [facility] [address] [place] [address] Hemoglobin (Bld) [Mass/Vol] 18.1 g/dL High 13.5-17.5 [facility] Comment on above: Performed By: #### 2 4360-0 #### FRANK CASTILLO ([id number]) [facility] ([facility] [address] [place] [address] Prostate specific Agon 05-01 Prostate specific Ag [Mass/Vol] 3.11 ng/mL Normal <=4.00 [facility] Comment on above: Order Comment: The F DA requires that the method used for PSA assay be reported to the physician. Values obtained with different assay methods must not be used interchangeably. This test was performed at [facility] using the Frugoton PSA assay is a two-site immunoenzymatic sandwich assay. The assay is approved for measurement of prostate-specific antigen (PSA)in serum and may be used in conjunction with a digital rectal examination in men 50 years and older as an aid in detection of prostate cancer. 5-Kuplc-hcnncdrzz inhibitors (e.g. Proscar, Finasteride, Avodart, Dutasteride and Paola) for the treatment of BPH have been shown to lower PSA levels by an average of 50% after 6 months of treatment. Performed By: #### 2 857-1 #### FRANK CASTILLO ([id number]) [facility] ([facility]) [address] [place] [address] Testosteroneon 05-01-2024 Testosterone [Mass/Vol] 608 ng/dL Normal 240-1000 [facility] Comment on above: Order Comment: Nandr olone decanoate, 11 Beta- hydroxytestosterone, androstenedione, testosterone propionate and 75-cyhk[place] strongly cross react with this test method. Biotin interference may cause falsely elevated results. Patients taking a Biotin dose of up to 5 mg/day should refrain from taking Biotin for 24 hours before sample collection. Providers may contact their local laboratory for further information. Performed By: #### 2 986-8 #### JIM Ruiz ([id number]) [facility] ([facility]) [address] [place] [address] Surgery Specimen Level Julienne 01-11-2024 Surgery Specimen Level IV Patient Age/Sex Location Account Attending Physician MATT CHRISTIANSON 53/M [facility] [id number] CARLA Morelos Specimen: [id number] Received: 01/11/24 Status: ROSEMARY Young Num: [id number] Spec Type: Lesion Subm Dr: CARLA Morelos HEADER OPERATION: Biopsy 8mm left forearm PRE-OP DIAGNOSIS: Lesion left arm, Carcinoma in situ TISSUE SUBMITTED: Left forearm lesion -------- MICROSCOPIC DIAGNOSIS Skin lesion of left forearm, biopsy: Basal cell carcinoma, superficial, multifocal. Extensive solar elastosis. Chronic dermatitis. Margins of excision are free of carcinoma. AM/mr 01/13/24 MICROSCOPIC DESCRIPTION Slides are reviewed. GROSS DESCRIPTION Received in fixative is one container labeled with the patient's name and designated Left forearm biopsy. The specimen consists of a piece of moss white skin measuring 0.7 x 0.6 x 0.2cm. The specimen is inked, bisected and submitted entirely in one cassette. [facility] 01/12/24 TC:0 CPT: 38947 -------- Patient Age/Sex Location Account Attending Physician -------- MATT CHRISTIANSON/[facility] [id number] CARLA Morelos -------- Signed (signature on file) Dr. Naman Reid DO 01/13/24 1058 -------- Normal [facility] Comment on above: Performed By: #### P SUIV #### [facility] [address] [place], [address] Office Visit (Urology)on Follow-up visit Diagnoses/Problems Assessed Benign prostatic hyperplasia without urinary obstruction (600.00) (N40.0) Erectile dysfunction (607.84) (N52.9) Male hypogonadism (257.2) (E29.1) Nocturia (788.43) (R35.1) Former smoker (V15.82) (Z87.891) Orders Male hypogonadism Testosterone Free + Total; Status:Active - Retrospective Authorization; Requested for:[id number]; Perform:Lab Services - Lab To Draw (Blood Test); Due:17Aug2023; Last Updated By:Anuja Hurley; 05/19/2023 2:44:02 PM;Ordered; For:Male hypogonadism; Ordered By:Irma Kee II; Patient Discussion/Summary All available PSA values reviewed, Options discussed. Questions answered. Diet changes for prostate health discussed and educational information given. Pros/Cons of prostate health supplements discussed. Diet changes for prostate health discussed and educational information given. Pros/Cons of prostate health supplements discussed. Treatment options for LUTS reviewed Discussed timed voiding. Discussed fluid and caffeine intake pros/cons of Testosterone replacement reviewed. Replacement options discussed. Questions answered. Available levels reviewed. Continue A.I and Jatenzo. Rx refilled Treatment options for ED reviewed. Sildenafil Rx given F/U 8 weeks with Free and Total T Chief Complaint 6 mo w/ labs History of Present IllnessPatient is here for 6 month f/u for hx of hypogonadism. He is taking Jatenzo BID and Anastrozole. . Most recent labs were 06/02 was 138. PSA was 2.44. H/H was 17/53.6.. Prior Labs were done on 11/02. T level was 513, Hct was 54.8, Hgb was17.8. Prior Labs were done on 08/01. T level was 195, Hct was 54.8, Hgb was 18.0, and PSA was 1.62. Chronic BPH sx are mild and stable. Denies urgency and frequency. Denies dysuria. Denies hematuria. Nocturia x1. No medication for LUT'S. ED is chronic. Sildenafil PRN. CSA signed on 08/12/22 Review of Systems Constitutional: No fever, No chills. Eye: Negative. Ear/Nose/Mouth/Throat: Negative. Respiratory: No shortness of breath, No cough. Cardiovascular: No chest pain, No peripheral edema. Gastrointestinal: No nausea, Genitourinary: Negative except as documented in history of present illness. Hematology/Lymphatics: Patient denies being on blood thinners.. Endocrine: Negative. Immunologic: Not immunocompromised. Musculoskeletal: Negative Integumentary: Negative. Neurologic: Alert and oriented X4. Psychiatric: Negative. Active Problems Problems Benign prostatic hyperplasia without urinary obstruction (600.00) (N40.0) Chews tobacco (305.1) (Z72.0) Erectile dysfunction (607.84) (N52.9) Male hypogonadism (257.2) (E29.1) Nocturia (788.43) (R35.1) Surgical History Problems History of Hernia repair History of Knee reconstruction Family History Mother Family history of lung cancer (V16.1) (Z80.1) Father Family history of hypertension (V17.49) (Z82.49) Sister Family history of malignant neoplasm of skin (V16.8) (Z80.8) Brother Family history of malignant neoplasm of skin (V16.8) (Z80.8) Social History Problems Chews tobacco (305.1) (Z72.0) Former smoker (V15.82) (Z87.891) Allergies Medication No Known Drug Allergies Recorded By: Sarah Castano; 06/11/2021 3:06:35 PM Current Meds Medication NameInstruction Anastrozole 1 MG Oral TabletTAKE 1 TABLET ONCE DAILY. Jatenzo 237 MG Oral CapsuleTake 1 capsule twice daily Lisinopril 10 MG Oral TabletTAKE ONE TABLET BY MOUTH DAILY Minocycline HCl CAPS Sildenafil Citrate 100 MG Oral TabletTAKE 100 MG BY MOUTH ONCE ADMINISTER 30 MINUTES TO 4 HOURS BEFORE ACTIVITY Tadalafil 20 MG Oral TabletTake 1 tab PO NEEDED for erectile dysfuction Vitals Vital Signs Recorded: 30Aqs1019 02:29PM Feohmsvywby70 Glfiem524 lb BMI Qzfzueychq12.87 kg/m2 BSA Calculated2.87 Tobacco Useb) No PHQ-2 Patient Declined/Screening not indicatedYes Falls Screening (Age 18+)a) No falls within the last year Physical Exam A/O x 3 in No apparent distress Constitutional: General appearance normal Respiratory: Respiratory effort is normal Gastrointestinal:Abdomen is not tender Genitourinary: Kidneys: Not palpable Bilaterally Bladder: Not palpable or tender Scrotum: No mass. No Hydrocele Epididymis: No spermatocele. Not tender Testicles: no mass Urethra: No Discharge Penis: WNL...No lesions Prostate: deferred Signatures Electronically signed by : Irma Kee II, MD; May 19 2023 2:46PM EST (Author) Normal [facility] Tobacco Screening.on 023 Fall risk assessment a) No falls within the last year OF-Ukfmbra-M [facility] Work Phone: Tobacco use status CPHS b) No YF-Kzktnkk-Y [facility] Work Phone: Tobacco Screening. Yes MP-Uro logy-A [facility] Work Phone: TESTOSTERONEon 05-15-2023 Testosterone [Mass/Vol] 138 ng/dL Low 240 - 1000 [facility] Comment on above: Result Comment: Nand rolone decanoate, 11 Beta-hydroxytestosterone, androstenedione, testosterone propionate and 79-khkq-wislkbxexxfz strongly cross react with this test method. Biotin interference may cause falsely elevated results. Patients taking a Biotin dose of up to 5 mg/day should refrain from taking Biotin for 24 hours before sample collection. Providers may contact their local laboratory for further information. Performed By: #### T EST #### [facility] [address] [place] [address] HGB + HCTon 05-14-2023 Hematocrit (Bld) [Volume fraction] 53.6 % High 41.0 - 52.0 [facility] Comment on above: Performed By: #### H H #### [facility] [address] [place] [address] Hemoglobin (Bld) [Mass/Vol] 17.0 g/dL Normal 13.5 - 17.5 [facility] Comment on above: Performed By: #### H H #### [address] [address] Laboratory - Hematology and Cell countson 05-14-2023 Hematocrit (Bld) [Volume fraction] 53.6 % above high threshold See Below OL-Zitolnn-O [facility] 232 DO Work Phone: Comment on above: Reference Range: 41. 0 - 52.0 Hemoglobin (Bld) [Mass/Vol] 17.0 g/dL See Below [facility] DO Work Phone: Comment on above: Reference Range: 13. 5 - 17.5 PROSTATE SPECIFIC AGon 05-14 Prostate specific Ag [Mass/Vol] 2.44 ng/mL Normal 0.00 - 4.00 [facility] Comment on above: Result Comment: The FDA requires that the method used for PSA assay be reported to the physician. Values obtained with different assay methods must not be used interchangeably. This test was performed at [facility] using the Access Hybritech PSA assay is a two-site immunoenzymatic sandwich assay. The assay is approved for measurement of prostate-specific antigen (PSA)in serum and may be used in conjunction with a digital rectal examination in men 50 years and older as an aid in detection of prostate cancer. 1-Nwcsp-wkcycwdhp inhibitors (e.g. Proscar, Finasteride, Avodart, Dutasteride and Paola) for the treatment of BPH have been shown to lower PSA levels by an average of 50% after 6 months of treatment. Performed By: #### P SA #### [address] [address] Prostate Specific Antigenon 05-14-2023 Prostate specific Ag [Mass/Vol] 2.44 ng/mL See Below [place] [address] [place] Work Phone: Comment on above: Reference Range: 0.0 0 - 4.00The FDA requires that the method used for PSA assay be reported to the physician. Values obtained with different assay methods must not be used interchangeably. This testwas performed at [facility] using the Access Hybritech PSA assay is a two-site immunoenzymatic sandwich assay. The assay is approved for measurement of prostate-specific antigen (PSA)in serum and may be used in conjunction with a digital rectal examination in men 50 years and older as an aid in detection of prostate cancer.4-Vomko-qppbhuguh inhibitors (e.g. Proscar, Finasteride, Avodart, Dutasteride and Paola) for the treatment of BPH have been shown to lower PSA levels by an average of 50% after 6 months of treatment. Testosterone, Levelon 2022 Testosterone [Mass/Vol] 138 ng/dL below low threshold 240 - 1000 FM-Yezeige-Q [facility] 232 DO Work Phone: Comment on above: Nandrolone decanoate , 11 Beta-hydroxytestosterone, androstenedione, testosterone propionate and 52-hodl-barmwlnwnqwo strongly cross react with this test method. Biotin interference may cause falsely elevated results. Patients taking a Biotin dose of up to 5 mg/day should refrain from taking Biotin for 24 hours before sample collection. Providers may contact their local laboratory for further information. XR CHEST 2V FRONTAL/LATon XR CHEST 2V FRONTAL/LAT * * *Final Report* * * DATE OF EXAM: Feb 01 2023 7:50PM LDX 5291 - XR CHEST 2V FRONTAL/LAT / PROCEDURE REASON: left rib pain * * * * Physician Interpretation * * * * EXAMINATION: CHEST RADIOGRAPH (2 VIEW FRONTAL and LATERAL) CLINICAL HISTORY: Pain MQ: [id number] EXAM DATE/TIME: 02/01/2023 7:50 PM COMPARISON: 08/27/2021 RESULT: Lines, tubes, and devices: None. Lungs and pleura: No consolidation. No lung mass. No pleural effusion. No pneumothorax. Elevated right hemidiaphragm. Atelectasis in the right lung base. Cardiomediastinal silhouette: Normal cardiomediastinal silhouette. Bones and soft tissues: Unremarkable. IMPRESSION: No acute radiographic abnormality. Crane Crew Supervisor: KARO Transcribe Date/Time: Feb 02 2023 4:44P Dictated by : ADELA OLIVARES MD This examination was interpreted and the report reviewed and electronically signed by: ADELA OLIVARES MD on Feb 02 2023 4:44PM EST [id number] Normal [facility] Office Visit (Urology)on Follow-up visit Diagnoses/Problems Assessed Male hypogonadism (257.2) (E29.1) Erectile dysfunction (607.84) (N52.9) Benign prostatic hyperplasia without urinary obstruction (600.00) (N40.0) Former smoker (V15.82) (Z87.891) Patient Discussion/Summary pros/cons of Testosterone replacement reviewed. Replacement options discussed. Questions answered. Available levels reviewed. Jantenzo Rx refilled Continue Anastrozole Treatment options for LUTS reviewed Discussed timed voiding. Discussed fluid and caffeine intake Treatment options for ED reviewed. COntinue Sildenafil Lifestyle change to help prevent UTIs discussed. Encouraged fluid intake. F/u 6 months with Labs Chief Complaint 3 mo w/ labs History of Present IllnessPatient is here for 3 month f/u for hx of hypogonadism. He is taking Jatenzo BID and Anastrozole. . Most recent labs were done on 11/02. T level was 513, Hct was 54.8, Hgb was17.8. Prior Labs were done on 08/01. T level was 195, Hct was 54.8, Hgb was 18.0, and PSA was 1.62. Chronic BPH sx are mild and stable. Denies urgency and frequency. Denies dysuria. Denies hematuria. Nocturia x1. No medication for LUT'S. ED is chronic. Sildenafil PRN. CSA signed on 08/12/22 Review of Systems Constitutional: No fever, No chills. Eye: Negative. Ear/Nose/Mouth/Throat: Negative. Respiratory: No shortness of breath, No cough. Cardiovascular: No chest pain, No peripheral edema. Gastrointestinal: No nausea, Genitourinary: Negative except as documented in history of present illness. Hematology/Lymphatics: Patient denies being on blood thinners.. Endocrine: Negative. Immunologic: Not immunocompromised. Musculoskeletal: Negative Integumentary: Negative. Neurologic: Alert and oriented X4. Psychiatric: Negative. Active Problems Problems Benign prostatic hyperplasia without urinary obstruction (600.00) (N40.0) Chews tobacco (305.1) (Z72.0) Erectile dysfunction (607.84) (N52.9) Male hypogonadism (257.2) (E29.1) Nocturia (788.43) (R35.1) Surgical History Problems History of Hernia repair History of Knee reconstruction Family History Mother Family history of lung cancer (V16.1) (Z80.1) Father Family history of hypertension (V17.49) (Z82.49) Sister Family history of malignant neoplasm of skin (V16.8) (Z80.8) Brother Family history of malignant neoplasm of skin (V16.8) (Z80.8) Social History Problems Chews tobacco (305.1) (Z72.0) Former smoker (V15.82) (Z87.891) Allergies Medication No Known Drug Allergies Recorded By: Sarah Castano; 06/11/2021 3:06:35 PM Current Meds Medication NameInstruction Lisinopril 10 MG Oral TabletTAKE ONE TABLET BY MOUTH DAILY Minocycline HCl CAPS Sildenafil Citrate 100 MG Oral TabletTAKE 100 MG BY MOUTH ONCE ADMINISTER 30 MINUTES TO 4 HOURS BEFORE ACTIVITY Vitals Vital Signs Recorded: 56Sqs6075 03:38PM Heart Rate84 Hitjnwoq990 Aopvptsnq73 Height6 ft 3 in Nslrro996 lb 0.2 oz BMI Jjomqvwnpr04.75 kg/m2 BSA Calculated2.86 Tobacco Useb) No PHQ-2 Patient Declined/Screening not indicatedYes Falls Screening (Age 18+)a) No falls within the last year Physical Exam A/O x 3 in No apparent distress Constitutional: General appearance normal Respiratory: Respiratory effort is normal Gastrointestinal:Abdomen is not tender Genitourinary: Kidneys: Not palpable Bilaterally Bladder: Not palpable or tender Scrotum: No mass. No Hydrocele Epididymis: No spermatocele. Not tender Testicles: no mass Urethra: No Discharge Penis: WNL...No lesions Prostate: Deferred Signatures Electronically signed by : Irma Kee II, MD; Nov 18 2022 3:49PM EST (Author) Normal [facility] Tobacco Screening.on 023 Fall risk assessment a) No falls within the last year HB-Takpoyu-M [facility] Work Phone: Tobacco use status CPHS b) No QN-Zxczwrt-R [facility] Phone: Tobacco Screening. Yes MP-Uro logy-A [facility] Phone: TESTOST,FREE AND TOTALon TESTOSTERONE TOT.LC/MS/MS 513 ng/dL Normal 250-1100 [facility] Comment on above: Result Comment: For additional information, please refer to http://education.Quixhop/faq/ [email or web address] (This link is being provided for informational/ educational purposes only.) This test was developed and its analytical performance characteristics have been determined by [facility] [place], [place]. It has not been cleared or approved by the U.S. Food and Drug Administration. This assay has been validated pursuant to the CLIA regulations and is used for clinical purposes. Performed By: #### T ESFT #### [facility] [address] TESTOSTERONE,FREE 144.7 pg/mL Normal 35.0-155.0 [facility] Comment on above: Result Comment: This test was developed and its analytical performance characteristics have been determined by [facility] [place]. It has not been cleared or approved by the U.S. Food and Drug Administration. This assay has been validated pursuant to the CLIA regulations and is used for clinical purposes. Performed By: #### T ESFT #### [facility] [address] HGB + HCTon 11-07-2022 Hematocrit (Bld) [Volume fraction] 54.8 % High 41.0 - 52.0 AV-Lkannin-C [facility] Work Phone: Comment on above: Reference Range: 41. 0 - 52.0 Performed By: #### H H #### [address] [address] Hemoglobin (Bld) [Mass/Vol] 17.8 g/dL High 13.5 - 17.5 VK-Gljapce-U [facility] Work Phone: Comment on above: Reference Range: 13. 5 - 17.5 Performed By: #### H H #### [address] [address] Laboratory - Chemistry and C hemistry - challengeon 11-07-2022 Testosterone [Mass/Vol] 513 ng/dL 250-1100 YE-Kkuzryb-N [facility] Work Phone: Comment on above: For additional infor wayne, please refer tohttp://education.Quixhop/faq/TotalTestosteroneLCMS JCKAJ509(This link is being provided for informational/educational purposes only.) This test was developed and its analytical performancecharacteristics have been determined by [facility] [place], [place]. It hasnot been cleared or approved by the U.S. Food and DrugAdministration. This assay has been validated pursuantto the CLIA regulations and is used for clinicalpurposes. Testosterone Free [Mass/Vol] 144.7 pg/mL 35.0-155.0 MV-Jcacrdk-P [employer] Work Phone: Comment on above: This test was develo ped and its analytical performancecharacteristics have been determined by [employer] [place], [place]. It hasnot been cleared or approved by the U.S. Food and DrugAdministration. This assay has been validated pursuantto the CLIA regulations and is used for clinicalpurposes. Office Visit (Urology)on Follow-up visit Diagnoses/Problems Assessed Benign prostatic hyperplasia without urinary obstruction (600.00) (N40.0) Erectile dysfunction (607.84) (N52.9) Nocturia (788.43) (R35.1) Male hypogonadism (257.2) (E29.1) Former smoker (V15.82) (Z87.891) Chews tobacco (305.1) (Z72.0) History of Knee reconstruction Orders SocHx: Chews tobacco Tobacco Use Screening; Status:Complete; Done: 12Aug2022 Perform:Not Applicable;Ordered; For:SocHx: Chews tobacco; Ordered By:Estefany Funez; SocHx: Former smoker Tobacco Use Screening; Status:Complete; Done: 10Aug2022 Perform:Not Applicable;Ordered; For:SocHx: Former smoker; Ordered By:Anuja Hurley; Unlinked Stop: Albuterol Sulfate HFA 108 (90 Base) MCG/ACT Inhalation Aerosol Solution Dispense: 90 Days ; #:25; Refill: 0; HELENA = N; Record; Last Updated By: Estefany Funez; 08/12/2022 3:38:45 PM Stop: levoFLOXacin 500 MG Oral Tablet Dispense: 14 Days ; #:14; Refill: 0; HELENA = N; Record; Last Updated By: Estefany Funez; 08/12/2022 3:38:45 PM Patient Discussion/Summary pros/cons of Testosterone replacement reviewed. Replacement options discussed. Questions answered. Available levels reviewed. Januvia Rx refilled WIll Add Arimidex 0.5mg QMWF Estrogen levels ordered All available PSA values reviewed, Options discussed. Questions answered. Diet changes for prostate health discussed and educational information given. Pros/Cons of prostate health supplements discussed. Treatment options for ED reviewed. COntinue Sildenafil F/u 2 months with Labs Patient needs to start RBCs Chief Complaint 6 month follow up with labs History of Present IllnessPatient presents to the office today for a 3 MO F/'U w/Testosterone Level. Testosterone Level was 195 (08/01) Previous was 373 (03/01) PSA was 1.65 (08/01) Previous was 1.23 (03/01) HANDH were 54.8 and 18.0 (11/01) Patient is taking Jatenzo 237mg bid feels its working. Mood and energy level is good. BPH sx are mild and stable. Denies urgency and frequency. Denies dysuria. Denies hematuria. Nocturia x1. No medication for LUT'S. No hx of kidney stones. ED is chronic. Sildenafil PRN. This is helpful sometimes Controlled Medication Agreement was signed on 08/12/22 Review of Systems Constitutional: No fever, No chills Eye: reading glasses Respiratory: No shortness of breath, No cough. Cardiovascular: No chest pain Gastrointestinal: No nausea Genitourinary: Negative except as documented in history of present illness. Hematology/Lymphatics: Patient denies being on blood thinners.. Endocrine: Negative. Immunologic: Not immunocompromised. Musculoskeletal: Knee Integumentary: Negative. Neurologic: Alert and oriented X4. Psychiatric: Negative. Active Problems Problems Benign prostatic hyperplasia without urinary obstruction (600.00) (N40.0) Erectile dysfunction (607.84) (N52.9) Male hypogonadism (257.2) (E29.1) Nocturia (788.43) (R35.1) Surgical History Problems History of Hernia repair History of Knee reconstruction Family History Mother Family history of lung cancer (V16.1) (Z80.1) Father Family history of hypertension (V17.49) (Z82.49) Sister Family history of malignant neoplasm of skin (V16.8) (Z80.8) Brother Family history of malignant neoplasm of skin (V16.8) (Z80.8) Social History Problems Chews tobacco (305.1) (Z72.0) Former smoker (V15.82) (Z87.891) Allergies Medication No Known Drug Allergies Recorded By: Sarah Castano; 06/11/2021 3:06:35 PM Current Meds Medication NameInstruction Albuterol Sulfate HFA 108 (90 Base) MCG/ACT Inhalation Aerosol Solution Jatenzo 237 MG Oral CapsuleTake 1 capsule twice daily levoFLOXacin 500 MG Oral Tablet Lisinopril 10 MG Oral TabletTAKE ONE TABLET BY MOUTH DAILY Minocycline HCl CAPS Sildenafil Citrate 100 MG Oral TabletTAKE 100 MG BY MOUTH ONCE ADMINISTER 30 MINUTES TO 4 HOURS BEFORE ACTIVITY Vitals Vital Signs Recorded: 12Aug2022 03:30PM Heart Rate84 Jqdojukr242 Xjzxhdrdm64 Ynxyvo925 lb 2 oz BMI Bribneezey44.76 kg/m2 BSA Calculated2.89 Tobacco Usea) Yes Patient encouraged to stop using tobacco productsYes PHQ-2 #1. Over the last 2 weeks have you felt down, depressed or hopeless? (If yes, answer PHQ-9 below)No PHQ-2 #2. Over the last 2 weeks have you felt little interest or pleasure in doing things? (If yes, answer PHQ-9 below)No Falls Screening (Age 18+)a) No falls within the last year Physical Exam A/O x 3 in No apparent distress Constitutional: General appearance normal Respiratory: Respiratory effort is normal Gastrointestinal:Abdomen is not tender Genitourinary: Kidneys: Not palpable Bilaterally Bladder: Not palpable or tender Scrotum: No mass. No Hydrocele Epididymis: No spermatocele. Not tender Testicles: no mass Urethra: No Discharge Penis: WNL...No lesions Prostate:deferred Signatures Electronically signed by : Irma Kee II, MD; Aug 12 2022 3:57PM EST (Author) Normal [facility] Tobacco Screening.on 022 Adult depression screening assessment No MP-Urology- A [facility] Work Phone: Fall risk assessment a) No falls within the last year YF-Tmlnbiw-C [facility] Work Phone: [phone] Tobacco use status CPHS a) Yes EU-Sjgvcdv-B [facility] Work Phone: Tobacco Screening. Yes MP-Uro logy-A [facility] Work Phone: Absolute lymphocyte counton 08-04-2022 Lymphocytes Auto (Unsp spec) [#/Vol] 1.89 10*3/uL 0.83-4.51 [facility] Work Phone: Basophil percentageon 2021 Basophils/100 WBC (Bld) 0.6 % 0-1 [facility] Work Phone: Bilirubin [Mass/Vol] 0.60 mg/dL 0.20-1.00 [facility] Work Phone: Comment on above: For patients on eltr ombopag therapy, use of Dimension [place] TBIL is not recommended. Chloride [Moles/Vol] 108 mmol/L 98-107 [facility] Work Phone: Cholesterol [Mass/Vol] 199 mg/dL <200 [facility] Work Phone: Comment on above: <200 mg/dL Desirable 200-240 mg/dL Borderline >240 mg/dL High Risk Eosinophils/100 WBC (Bld) 2.4 % 0-5 [facility] Work Phone: Glucose [Mass/Vol] 123 mg/dL 74-106 [facility] Work Phone: Comment on above: Fasting Glucose resu lt from 100 to 125 mg/dL suggests IMPAIRED HOMEOSTASIS per A.D.A. criteria. Neutrophils (Bld) [#/Vol] 3.9 10*3/uL 2.0-7.7 [facility] Work Phone: Neutrophils/100 WBC (Bld) 58.2 % 47-70 [facility] Work Phone: [phone] Potassium [Moles/Vol] 4.6 mmol/L 3.5-5.1 [facility] Work Phone: [phone] Protein [Mass/Vol] 7.6 g/dL 6.4-8.2 [facility] Work Phone: [phone] Sodium [Moles/Vol] 139 mmol/L 136-145 [facility] Work Phone: [phone] Triglyceride [Mass/Vol] 207 mg/dL <199 [facility] Work Phone: [phone] Comment on above: The drugs N-Acetylcy steine and Metamizole may falsely depress this assay.Serum Triglycerides Reference Interval Normal <150 mg/dL Borderline high 150 - 199 mg/dL High 200 - 499 mg/dL Very High > or = 500 mg/dL WBC (Bld) [#/Vol] 6.7 10*3/uL 4.4-11.0 [facility] Work Phone: [phone] Blood erythrocytes count (nu mber/volume)on 08-04-2022 RBC (Bld) [#/Vol] 5.80 10*6/uL 4.6-6.2 [facility] Work Phone: [phone] Blood hemoglobin measurement (mass/volume)on 08-04-2022 Hemoglobin (Bld) [Mass/Vol] 17.9 g/dL 13.0-16.5 [facility] Work Phone: Blood lymphocytes/100 leukoc yteson 08-04-2022 Lymphocytes/100 WBC (Bld) 28.4 % 19-41 [facility] Work Phone: [phone] Blood monocytes/100 leukocyt eson 08-04-2022 Monocytes/100 WBC (Bld) 9.9 % 0-10 [facility] Work Phone: [phone] Blood platelet mean volumeon 08-04-2022 Platelet mean volume (Bld) [Entitic vol] 11.0 fL 6.2-12.0 [facility] Work Phone: [phone] Determination of erythrocyte mean corpuscular volume (MCV)on 08-04-2022 MCV (RBC) [Entitic vol] 93.3 fL 80-94 [facility] Work Phone: [phone] Hematocrit Auto (Bld) [Volum e fraction]on 08-04-2022 Hematocrit (Bld) [Volume fraction] 54.1 % 40-54 [facility] Work Phone: [phone] Laboratory - Chemistry and C hemistry - challengeon 08-04-2022 ALP [Catalytic activity/Vol] 134 U/L 45-117 [facility] Work Phone: [phone] ALT [Catalytic activity/Vol] 65 U/L 16-61 [facility] Work Phone: [phone] CO2 [Moles/Vol] 27.0 mmol/L 21.0-32.0 [facility] Work Phone: [phone] Globulin (S) [Mass/Vol] 3.7 g/dL 2.2-4.2 [facility] Work Phone: [phone] Urea nitrogen/Creatinine [Mass ratio] 22.9 mg/mg 10-20 [facility] Work Phone: [phone] Laboratory - Hematology and Cell countson 08-04-2022 Erythrocyte distribution width (RBC) [Entitic vol] 48.1 fL 35.1-43.9 [facility] Work Phone: [phone] Erythrocyte distribution width (RBC) [Ratio] 14.1 % 11.6-14.6 [facility] Work Phone: [phone] Immature granulocytes/100 WBC (Bld) 0.500 % 0.0-0.9 [facility] Work Phone: [phone] Comment on above: IG% - Immature Granu locytes (promyelocytes, myelocytes and metamyelocytes) > 1% indicates that a LEFT SHIFT is Present. MCH (RBC) [Entitic mass] 30.9 pg 27.0-32.0 [facility] Work Phone: Nucleated RBC/100 WBC (Bld) [Ratio] 0 % 0-5 [facility] Work Phone: [phone] MCHC Auto (RBC) [Mass/Vol]on 08-04-2022 MCHC (RBC) [Mass/Vol] 33.1 g/dL 32-36 [facility] Work Phone: No Panel Informationon 08-04 Estimated GFR (MDRD) Amer 83 mL/min >60 [facility] Work Phone: Comment on above: GFR Calc Estimated GFR (MDRD) Non-Af Amer 69 mL/min >60 [facility] Work Phone: Comment on above: Non- GFR Calc Platelets bldon 08-04-2022 Platelets (Bld) [#/Vol] 224 10*3/uL 150-450 [facility] Work Phone: Serum or plasma albumin laotya urement (mass/volume)on 08-04-2022 Albumin [Mass/Vol] 3.9 g/dL 3.2-5.0 [facility] Work Phone: Serum or plasma albumin/glob ulin mass ratioon 08-04-2022 Albumin/Globulin [Mass ratio] 1.1 {ratio} 0.9-2.4 [facility] Work Phone: Serum or plasma calcium latoya urement (mass/volume)on 08-04-2022 Calcium [Mass/Vol] 9.4 mg/dL 8.5-10.1 [facility] Work Phone: Serum or plasma cholesterol in HDL measurement (mass/volume)on 08-04-2022 Cholesterol in HDL [Mass/Vol] 28 mg/dL >40 [facility] Work Phone: Comment on above: The drugs N-Acetylcy steine and Metamizole may falsely depress this assay. Reference Range HDL <40 mg/dL Low HDL Cholesterol HDL >or= 60 mg/dL High HDL Cholesterol Serum or plasma cholesterol in VLDL measurement (mass/volume)on 08-04-2022 Cholesterol in VLDL [Mass/Vol] 41 mg/dL 5-40 [facility] Work Phone: Serum or plasma creatinine m easurement (mass/volume)on 08-04-2022 Creatinine [Mass/Vol] 1.18 mg/dL 0.70-1.30 [facility] Work Phone: Comment on above: The validity of the calculated GFR & GFRAA in patients over 70 years has not been determined. Clinical correlation is essential. Serum or plasma low density lipoprotein (LDL) cholesterol measurement (mass/volume)on 08-04-2022 Cholesterol in LDL [Mass/Vol] 130 mg/dL 0-130 [facility] Work Phone: Serum or plasma urea nitroge n measurement (mass/volume)on 08-04-2022 Urea nitrogen [Mass/Vol] 27 mg/dL 7-18 [facility] Work Phone: Thin prep Papanicolaou smear with manual screeningon 08-04-2022 Thin prep Papanicolaou smear with manual screening 52 U/L 15-37 [facility] Work Phone: Thin prep Papanicolaou smear with manual screening 4 5-15 [facility] Work Phone: HGB + HCTon 08-01-2022 Hematocrit (Bld) [Volume fraction] 54.8 % High 41.0 - 52.0 [facility] Comment on above: Performed By: #### H H #### [address] [address] Hemoglobin (Bld) [Mass/Vol] 18.0 g/dL High 13.5 - 17.5 [facility] Comment on above: Performed By: #### H H #### [place] [id number] Laboratory - Hematology and Cell countson 08-01-2022 Hematocrit (Bld) [Volume fraction] 54.8 % above high threshold See Below QG-Bffrqwg-J [facility] Work Phone: Comment on above: Reference Range: 41. 0 - 52.0 Hemoglobin (Bld) [Mass/Vol] 18.0 g/dL above high threshold See Below GF-Jfgwgeu-P [facility] Work Phone: Comment on above: Reference Range: 13. 5 - 17.5 PROSTATE SPECIFIC AGon 08-01 Prostate specific Ag [Mass/Vol] 1.62 ng/mL Normal 0.00 - 4.00 [facility] Comment on above: Result Comment: The FDA requires that the method used for PSA assay be reported to the physician. Values obtained with different assay methods must not be used interchangeably. This test was performed at [facility] using the Access [employer] PSA assay is a two-site immunoenzymatic sandwich assay. The assay is approved for measurement of prostate-specific antigen (PSA)in serum and may be used in conjunction with a digital rectal examination in men 50 years and older as an aid in detection of prostate cancer. 9-Kfoxt-lukeqnars inhibitors (e.g. Proscar, Finasteride, Avodart, Dutasteride and Paola) for the treatment of BPH have been shown to lower PSA levels by an average of 50% after 6 months of treatment. Performed By: #### P SA #### [place] [address] Prostate Specific Antigenon 08-01-2022 Prostate specific Ag [Mass/Vol] 1.62 ng/mL See Below TW-Ikimvbf-P [facility] Work Phone: Comment on above: Reference Range: 0.0 0 - 4.00The FDA requires that the method used for PSA assay be reported to the physician. Values obtained with different assay methods must not be used interchangeably. This testwas performed at [facility] using the Access Hy[employer] PSA assay is a two-site immunoenzymatic sandwich assay. The assay is approved for measurement of prostate-specific antigen (PSA)in serum and may be used in conjunction with a digital rectal examination in men 50 years and older as an aid in detection of prostate cancer.1-Zuwhw-gkyaboydg inhibitors (e.g. Proscar, Finasteride, Avodart, Dutasteride and Paola) for the treatment of BPH have been shown to lower PSA levels by an average of 50% after 6 months of treatment. TESTOSTERONEon 08-01-2022 Testosterone [Mass/Vol] 195 ng/dL Low 240 - 1000 [facility] Comment on above: Result Comment: Nand rolone decanoate, 11 Beta-hydroxytestosterone, androstenedione, testosterone propionate and 99-helr-ljmkwevbplnc strongly cross react with this test method. Biotin interference may cause falsely elevated results. Patients taking a Biotin dose of up to 5 mg/day should refrain from taking Biotin for 24 hours before sample collection. Providers may contact their local laboratory for further information. Performed By: #### T EST #### [facility] [address] [place] [address] Testosterone, Levelon 2021 Testosterone [Mass/Vol] 195 ng/dL below low threshold 240 - 1000 SD-Hsbayju-M [facility] Work Phone: Comment on above: Nandrolone decanoate , 11 Beta-hydroxytestosterone, androstenedione, testosterone propionate and 04-wokd-kcszzbpjccss strongly cross react with this test method. Biotin interference may cause falsely elevated results. Patients taking a Biotin dose of up to 5 mg/day should refrain from taking Biotin for 24 hours before sample collection. Providers may contact their local laboratory for further information. Laboratory - Hematology and Cell countson 02-11-2022 Hematocrit (Bld) [Volume fraction] 52.8 % above high threshold See Below BW-Krdmdgo-O [facility] Work Phone: Comment on above: Reference Range: 41. 0 - 52.0 Hemoglobin (Bld) [Mass/Vol] 17.4 g/dL See Below UW-Vkutxid-[facility] Work Phone: Comment on above: Reference Range: 13. 5 - 17.5 Prostate Specific Antigenon 02-11-2022 Prostate specific Ag [Mass/Vol] 1.23 ng/mL See Below HF-Vvbhmuj-D [facility] Work Phone: Comment on above: Reference Range: 0.0 0 - 4.00The FDA requires that the method used for PSA assay be reported to the physician. Values obtained with different assay methods must not be used interchangeably. This testwas performed at [facility] using the Access giddybritech PSA assay is a two-site immunoenzymatic sandwich assay. The assay is approved for measurement of prostate-specific antigen (PSA)in serum and may be used in conjunction with a digital rectal examination in men 50 years and older as an aid in detection of prostate cancer.3-Uqrmo-pexuvqlww inhibitors (e.g. Proscar, Finasteride, Avodart, Dutasteride and Paola) for the treatment of BPH have been shown to lower PSA levels by an average of 50% after 6 months of treatment. Testosterone, Levelon 2021 Testosterone [Mass/Vol] 373 ng/dL 240 - 1000 WI-Dwrlnbt-G [facility] Work Phone: Comment on above: Nandrolone decanoate , 11 Beta-hydroxytestosterone, androstenedione, testosterone propionate and 19-dnzf-vvahezsskejm strongly cross react with this test method. Biotin interference may cause falsely elevated results. Patients taking a Biotin dose of up to 5 mg/day should refrain from taking Biotin for 24 hours before sample collection. Providers may contact their local laboratory for further information. Tobacco Screening.on Fall risk assessment a) No falls within the last year SW-Bexgfii-A [facility] Work Phone: Tobacco use status [facility] b) No [facility] Work Phone: Testosterone, Levelon 2021 Testosterone [Mass/Vol] 209 ng/dL below low threshold 240 - 1000 TN-Uihbvpf-A [facility] Work Phone: Comment on above: Nandrolone decanoate , 11 Beta-hydroxytestosterone, androstenedione, testosterone propionate and 57-xuzl-iejlkkyqsjdx strongly cross react with this test method. Biotin interference may cause falsely elevated results. Patients taking a Biotin dose of up to 5 mg/day should refrain from taking Biotin for 24 hours before sample collection. Providers may contact their local laboratory for further information. Tobacco Screening.on Fall risk assessment a) No falls within the last year HX-Jnrukmy-E [facility] Work Phone: Tobacco use status [facility] b) No PI-Cgibyxi-X [facility] Work Phone: Laboratory - Hematology and Cell countson 08-08-2021 Hematocrit (Bld) [Volume fraction] 49.3 % See Below TV-Cngnpvs-G [facility] Work Phone: Comment on above: Reference Range: 41. 0 - 52.0 Hemoglobin (Bld) [Mass/Vol] 16.2 g/dL See Below FX-Hhsmicw-Z [employer] [employer] [facility] Work Phone: Comment on above: Reference Range: 13. 5 - 17.5 Prostate Specific Antigenon 08-08-2021 Prostate specific Ag [Mass/Vol] 1.53 ng/mL See Below BB-Wpsexba-Z [facility] Work Phone: Comment on above: Reference Range: 0.0 0 - 4.00The FDA requires that the method used for PSA assay be reported to the physician. Values obtained with different assay methods must not be used interchangeably. This testwas performed at [facility] using the [employer] PSA assay is a two-site immunoenzymatic sandwich assay. The assay is approved for measurement of prostate-specific antigen (PSA)in serum and may be used in conjunction with a digital rectal examination in men 50 years and older as an aid in detection of prostate cancer.6-Urvoj-awrilhvgl inhibitors (e.g. Proscar, Finasteride, Avodart, Dutasteride and Paola) for the treatment of BPH have been shown to lower PSA levels by an average of 50% after 6 months of treatment. Testosterone, Levelon 2020 Testosterone [Mass/Vol] 264 ng/dL 240 - 1000 MK-Xyafkxe-X [facility] Work Phone: Comment on above: Nandrolone decanoate , 11 Beta-hydroxytestosterone, androstenedione, testosterone propionate and 51-benw-ashhcfwckxcb strongly cross react with this test method. Biotin interference may cause falsely elevated results. Patients taking a Biotin dose of up to 5 mg/day should refrain from taking Biotin for 24 hours before sample collection. Providers may contact their local laboratory for further information. IO UA (automated w/o microsc opy)on 06-11-2021 Protein (U) [Mass/Vol] Negative LO-Oxgarqg-G [facility] Work Phone: [phone] IO UA (automated w/o microscopy) Negative FF-Ywqnwss-Q [facility] Work Phone: [phone] IO UA (automated w/o microscopy) Normal (0.2-1.0 mg/dl) -Urolog y-A [facility] Work Phone: IO UA (automated w/o microscopy) 5.5 1 AJ-Ucftscc-I [facility] Work Phone: [phone] IO UA (automated w/o microscopy) 1.025 1 XH-Jeygrsg-E [facility] Work Phone: IO UA (automated w/o microscopy) Clear YU-Xuqvizs-F [facility] Work Phone: [phone] IO UA (automated w/o microscopy) Yellow UR-Uvmocjc-J [facility] Work Phone: [phone] Tobacco Screening.on 021 Fall risk assessment a) No falls within the last year HV-Dtwggfu-D [facility] Work Phone: [phone] Tobacco use status [facility] b) No KU-Ghzmpmm-X [facility] Work Phone: [phone] KNEE CMPLT, 4 OR MORE VIEWSo n 05-05-2021 KNEE CMPLT, 4 OR MORE VIEWS Patient Name: MATT CHRISTIANSON STUDY: Right KNEE; COMPLT, 4 OR MORE VIEWS; 05/05/2021 11:53 am INDICATION: pain x1 year. COMPARISON: None. ACCESSION NUMBER(S): [id number] ORDERING CLINICIAN: KIM EDMOND FINDINGS: There is no evidence for acute fracture or dislocation. Spurring of the patella and tibial spines is noted. No periosteal reaction is seen. There is no evidence for suprapatellar effusion. IMPRESSION: No acute fracture or dislocation. Spurring of patella and tibial spines. Electronically signed by: OBIE STALLINGS MD [facility] Provider Note - ED v2on 04-11 Provider Note - ED v2 Provider Note - ED v2: Chart Review: HISTORY OF PRESENTING ILLNESS MATT is a 50 year old Male and was seen by me at 05-May-2021 11:19 for a chief complaint of knee injury (patient reports right knee pain on and off for over one year. Was on boat fishing on wednesday and heard a pop in right knee. Increased pain, swelling and redness since wednesday. +MSP)(1). Triage Information: Most recent Vital Sign Value Date Temp (F): 97.3 05-05-2021 11:14 Temp (C): 36.2 05-05-2021 11:14 Heart Rate (beats/min): 93 05-05-2021 11:14 Respirations (breaths/min): 18 05-05-2021 11:14 SpO2 (%): 95 05-05-2021 11:14 BP Systolic (mm Hg): 162 05-05-2021 11:14 BP Diastolic (mm Hg): 104 05-05-2021 11:14 PAST MEDICAL HISTORY ATTESTATION: I have reviewed and confirmed nurse's/medic's notes for patient's medications, allergies, and medical, surgical, family and social history ALLERGIES/INTOLERANCES: No Known Allergies HEALTH HISTORY: No documented data. OUTPATIENT MEDICATIONS: Home Medications Review Status for Reconciliation: Complete Med Status: Patient Currently Takes Medications Drug Name: Lisinopril 10 Mg Tab Lupi Instructions: 1 tab(s) orally once a day Drug Name: Minocycline 50 Mg Cap Sunp Instructions: 1 cap(s) orally once a day Drug Name: Sildenafil 100 Mg Tab Amne Instructions: 1 tab(s) orally once a day, As Needed SIGNIFICANT EVENTS: No documented data. RESULTS/VITAL SIGNS RESULTS: Radiology Results: Impression: No acute fracture or dislocation. Spurring of patella and tibial spines. Xray Knee Complete 4 or more View [May 05 2021 12:21PM] VITAL SIGNS: T PRBP SpO2O2(LPM) %FiO2 Method 05-May-2021 11:14:[id number]/104 95 room air, no respiratory support MEDICAL DECISION MAKING/ED COURSE MDM/ED COURSE: PMH: Reviewed PSH: Reviewed Social History: Reviewed. Allergies reviewed. HPI: This is a 50 year old male who presents to the ED today with complaints of right knee pain. Patient states that he was out on his fishing boat several days ago and he bumped it on the side of the boat. He states he heard a pop and has had increased pain and swelling. Patient states that he has had trouble with his right knee for the past year or so. He occasionally takes ibuprofen for the pain. No previous surgery. No significant injury previously. Denies numbness tingling or paresthesias of the lower extremity. PHYSICAL EXAM: GENERAL: Vitals noted, no distress. Alert and oriented x 3. Non-toxic. CARDIAC: Regular rate, rhythm. RESPIRATORY: Lungs clear and equal bilaterally. No respiratory distress. MUSCULOSKELETAL & SKIN: Warm, dry, and intact. No rash/lesions. No peripheral edema. No laxity of the tendons of the right knee noted. Negative anterior and posterior drawer testing. Negative valgus varus stressing. Distally his capillary refill is less than 3 seconds and sensation light touch is intact. Pedal pulses 2+ and bounding. Wearing a knee sleeve. NEURO: No focal neurologic deficits, acting appropriately. ED COURSE: This patient was seen and examined by myself independently. X-ray the patient's right knee as noted above. This does show patellar and tibial spurring. Patient is advised to continue wearing his knee sleeve, given a prescription for anti-inflammatories. He is encouraged to follow-up with orthopedics for repeat evaluation and to discuss further treatment options. Patient verbalized understanding. He requested a work note. He is given this for 2 days off. He is discharged home in stable condition with computer instructions given. DIAGNOSTIC IMPRESSION: #1 right knee pain #2 elevated blood pressure reading CLINICAL IMPRESSION Diagnosis/Annotation: ED Dx Name:Right knee pain Code:M25.561 Name:Elevated blood pressure reading Code:R03.0 Disposition: discharged Type: home ATTESTATION CRITICAL CARE TIME Is this a critically ill patient: no Electronic Signatures: Kim Edmond ([employer]) (Signed 05-May-2021 12:54) Authored: HPI, PMShaggy, Results/Vital Signs, MDM/ED Course, Clinical Impression, Attestation, Chart Review, Scores Last Updated: 05-May-2021 12:54 by Kim Edmond ([employer]EWARD[employer]) References: 1. Data Referenced From Triage - ED 05-May-2021 11:14 Normal [facility] Risk Screen - Adult Emergenc yon 05-05-2021 Risk Screen - Adult Emergency Preferred Language: Preferred Language: Preferred Language for Discussing Health Care (patient/designee)Romanian Advanced Directives: Advance Directive/DNRno Family Violence Adult: Abuse Screen: Are you or have you been threatened or abused physically, emotionally, or sexually by anyoneno Learning Assessment (Patient): Learning Assessment (Patient): Patient is Able to be Assessed for Learningyes Factors Influencing Readiness to Learninterest in learning Factors that Impact Ability to Learnnone Devices/Methods Used to Communicatenone Learning Preferencesverbal instruction Cultural Considerationsnone Developmental Considerationsnone Tenriism Considerationsnone Learning Assessment (Other Learner): Learning Assessment (Other Learner): Other learner availableno Pressure Injury/TB/Substance: Pressure Injury: Pressure Injury Present on Admissionno Do you have a coughno Smoking Statusnever smoker Alcohol Usedenies Drug Usedenies Drug 2 Usedenies Admission Risk Screen: Significant IndicatorsComplete CAGE: CAGE: Is this an injured patient at a Trauma Center ([facility]/[place]): no Electronic Signatures: Rena George (RN) (Signed 05-May-2021 11:19) Authored: Preferred Language, Advanced Directives, Family Violence Adult, Learning Assessment (Patient), Learning Assessment (Other Learner), Pressure Injury/TB/Substance, Pressure Injury, CAGE Last Updated: 05-May-2021 11:19 by Rena George (RN) [facility] Triage - EDon 05-05-2021 Triage - ED Quick Triage: The patient and/or guardian verbally acknowledges placement for services into the following (when Urgent Care Service hours are operating):emergency department Chart Review: ARRIVAL INFORMATION Mode of Arrival: private vehicle CHIEF COMPLAINT MATT CHRISTIANSON is a Male patient with a chief complaint of knee injury (patient reports right knee pain on and off for over one year. Was on boat fishing on wednesday and heard a pop in right knee. Increased pain, swelling and redness since wednesday. +MSP). Onset of the Complaint: 05-May-2021 Triage Date/Time: 05-May-2021 11:14 NARENDRA: 4 Pain Rating (0-10): 8 = Severe Pain location: right knee Vital Signs: Temperature: 97.3F ( 36.2C) taken oral Blood Pressure: 162/104 Mean: Heart Rate: 93 Respiratory Rate: 18 Pulse Oximetry: 95% on room air, no respiratory support. Height: 6 feet 3 inches. 190.5 CM Weight: 396.8 pounds. Calculated 180.0 kg. (stated) Calculated BMI (kg/m2): 49.600 Calculated BSA (m2) 3.09 Dewey Coma Scale: Best Eye Response: (E4) spontaneous Best Motor Response: (M6) obeys commands Best Verbal Response: (V5) oriented [place] Score: 15 Cough lasting greater than 3 weeks: no Allergies: no Mask applied: yes Patient has homicidal thoughts: no Symptom Notes: . Symptoms Are POSITIVE For: difficulty bending, difficulty walking, pain (describe) and decreased ROM. Symptoms Are Negative For: abrasion, bleeding, bruising, deformity, numbness and tingling. Risk Screens Suicide Risk Screen In the Past Month: Have you wished you were or wished you could go to sleep and not wake up no In the Past Month: Have you had any actual thoughts of killing yourself no In Your Lifetime: Have you ever done anything, started to do anything, or prepared to do anything to end your life no Cee Fall Scale Screening Has the patient fallen before (or is the patient in the ED as a result of a fall) has not had a fall Does the patient have an impaired gait does not have impaired gait Is the patient cognitively impaired not cognitively impaired Interventions: Cee Fall Interventions: LOW INTERVENTIONS: *patient oriented to surroundings and call system, * patient/family falls education completed and documented, *patients fall status communicated during bedside handoff, *whiteboard updated, *mode of toileting discussed with patient, *bed in low position with brakes locked, *call light in reach, * non-skid footwear TRAVEL HISTORY Travel History Coronavirus Screening: no exposure or symptoms Travel Exposure History: NO travel to International locations in the past 30 days PAIN Pain Scale Used: MONICA Pain Rating (0-10): 8 = Severe Past Medical History: Past Medical History Reviewedyes Electronic Signatures: Rena George (SADI) (Signed 05-May-2021 11:18) Authored: Quick Triage, Risk Screens, Pain, Travel History, Chart Review, Scores, Past Medical History Last Updated: 05-May-2021 11:18 by Rena George (SADI) [facility] Vital Signs Date Time Vital Sign Value Performing Clinician Facility 11-22-2024 08:38-0500 Body mass index (BMI) [Ratio] 44.87 kg/m2 Irma Kee MD Work Phone: [facility] 11-22-2024 08:38-0500 Body weight 162.84 kg Irma Kee MD Work Phone: [facility] 11-22-2024 08:38-0500 Diastolic blood pressure 83 mm[Hg] Irma Kee MD Work Phone: [facility] 11-22-2024 08:38-0500 Heart rate 67 /min Irma Kee MD Work Phone: [facility] 11-22-2024 08:38-0500 Systolic blood pressure 146 mm[Hg] Irma Kee MD Work Phone: [facility] 08-29-2024 09:41-0500 Body height 190.5 cm Villa Newbill PA-C Work Phone: [facility] 08-29-2024 09:41-0500 Body mass index (BMI) [Ratio] 43.75 kg/m2 Villa Newbill PA-C Work Phone: [facility] 08-29-2024 09:41-0500 Body temperature 97.7 [degF] Villa Newbill PA-C Work Phone: [facility] 08-29-2024 09:41-0500 Body weight 158.76 kg Villa Newbill PA-C Work Phone: [facility] 08-29-2024 09:41-0500 Diastolic blood pressure 87 mm[Hg] Villa Newbill PA-C Work Phone: [facility] 08-29-2024 09:41-0500 Heart rate 82 /min Villa Newbill PA-C Work Phone: [facility] 08-29-2024 09:41-0500 Respiratory rate 16 /min Villa Newbill PA-C Work Phone: [facility] 08-29-2024 09:41-0500 SaO2% (BldA) [Mass fraction] 95 % Villa Newbill PA-C Work Phone: [facility] 08-29-2024 09:41-0500 Systolic blood pressure 149 mm[Hg] Villa Newbill PA-C Work Phone: [facility] 07-25-2024 08:42-0400 Body height 190.5 cm Jeniffer Jose MD Work Phone: [facility] 07-25-2024 08:42-0400 Body mass index (BMI) [Ratio] 44.37 kg/m2 Jeniffer Jose MD Work Phone: [facility] 07-25-2024 08:42-0400 Body weight 161.03 kg Jeniffer Jose MD Work Phone: [facility] 07-25-2024 08:42-0400 Diastolic blood pressure 106 mm[Hg] Jeniffer Jose MD Work Phone: [facility] 07-25-2024 08:42-0400 Heart rate 90 /min Jeniffer Jose MD Work Phone: [facility] 07-25-2024 08:42-0400 Systolic blood pressure 168 mm[Hg] Jeniffer Jose MD Work Phone: [facility] 03-16-2024 11:08-0400 Body temperature 98.1 [degF] Villa Newbill PA-C Work Phone: [facility] 03-16-2024 11:08-0400 Diastolic blood pressure 93 mm[Hg] Villa Newbill PA-C Work Phone: [facility] 03-16-2024 11:08-0400 Heart rate 84 /min Villa Newbill PA-C Work Phone: [facility] 03-16-2024 11:08-0400 Respiratory rate 14 /min Villa Newbill PA-C Work Phone: [facility] 03-16-2024 11:08-0400 SaO2% (BldA) [Mass fraction] 95 % Villa Newbill PA-C Work Phone: [facility] 03-16-2024 11:08-0400 Systolic blood pressure 143 mm[Hg] Villa Newbill PA-C Work Phone: [facility] 01-11-2024 19:06-0400 Body height 190.5 cm [facility] 01-11-2024 19:06-0400 Body mass index (BMI) [Ratio] 45.3 kg/m2 [facility] 01-11-2024 19:06-0400 Body temperature 97.2 [degF] [facility] 01-11-2024 19:06-0400 Body weight 164.65 [facility] [place] 01-11-2024 19:06-0400 Diastolic blood pressure 90 mm[Hg] [facility] 01-11-2024 19:06-0400 Heart rate 68 /min [facility] 01-11-2024 19:06-0400 Respiratory rate 18 /min [facility] 01-11-2024 19:06-0400 SaO2% (BldA) [Mass fraction] 97 % [facility] 01-11-2024 19:06-0400 Systolic blood pressure 160 mm[Hg] [facility] 12-23-2023 18:30-0400 Body mass index (BMI) [Ratio] 45.3 kg/m2 [facility] 12-23-2023 18:30-0400 Body temperature 97.2 [degF] [facility] 12-23-2023 18:30-0400 Body weight 164.65 kg [facility] 12-23-2023 18:30-0400 Diastolic blood pressure 90 mm[Hg] [facility] 12-23-2023 18:30-0400 Heart rate 66 /min [facility] 12-23-2023 18:30-0400 Respiratory rate 18 /min [facility] 12-23-2023 18:30-0400 SaO2% (BldA) [Mass fraction] 97 % [facility] 12-23-2023 18:30-0400 Systolic blood pressure 160 mm[Hg] [facility] 05-19-2023 14:29-0400 Body mass index (BMI) [Ratio] 46.87 kg/m2 No PCP None DM-Flmposj-Kwobymp Work Phone: 05-19-2023 14:29-0400 Body surface area Derived from formula 2.87 m2 No PCP None ZB-Lmfsize-Zznwyuz Work Phone: 05-19-2023 14:29-0400 Body weight 170.1 kg No PCP None CJ-Csvvlqf-Ttkns nd Work Phone: 05-19-2023 14:29-0400 Respiratory rate 18 /min No PCP None CG-Kdaxpib-Ghje and Work Phone: 11-18-2022 15:38-0500 Body height 190.5 cm No PCP None WF-Ftrqetm-Unrdd nd Work Phone: 11-18-2022 15:38-0500 Body mass index (BMI) [Ratio] 46.75 kg/m2 No PCP None ML-Zifzfga-Npwqgos Work Phone: 11-18-2022 15:38-0500 Body surface area Derived from formula 2.86 m2 No PCP None QT-Llkfphp-Bfgaxoc Work Phone: 11-18-2022 15:38-0500 Body weight 169.65 kg No PCP None WM-Wnfvpdq-Sfwtv nd Work Phone: 11-18-2022 15:38-0500 Diastolic blood pressure 82 mm[Hg] No PCP None OE-Mgsiuxv-Tlmkpnj Work Phone: 11-18-2022 15:38-0500 Heart rate 84 /min No PCP None AD-Iemqpyr-Oubmz nd Work Phone: 11-18-2022 15:38-0500 Systolic blood pressure 156 mm[Hg] No PCP None KJ-Geobtge-Snojujw Work Phone: 08-12-2022 15:30-0400 Body mass index (BMI) [Ratio] 47.76 kg/m2 No PCP None LO-Kqqwcqx-Rnfanhm Work Phone: 08-12-2022 15:30-0400 Body surface area Derived from formula 2.89 m2 No PCP None VN-Pluypdi-Ilkecph Work Phone: 08-12-2022 15:30-0400 Body weight 173.33 kg No PCP None NP-Btgrdtz-Jxxfj nd Work Phone: 08-12-2022 15:30-0400 Diastolic blood pressure 95 mm[Hg] No PCP None WC-Ypcyywq-Uprubnu Work Phone: 08-12-2022 15:30-0400 Heart rate 84 /min No PCP None JZ-Utfkxjp-Qpyid nd Work Phone: 08-12-2022 15:30-0400 Systolic blood pressure 156 mm[Hg] No PCP None TK-Fzkfirc-Ehozniu Work Phone: 08-04-2022 19:24-0400 Body height 190.5 cm [facility] Work Phone: 08-04-2022 19:24-0400 Body mass index (BMI) [Ratio] 47.7 kg/m2 [facility] Work Phone: 08-04-2022 19:24-0400 Body temperature 97.5 [degF] [facility] Work Phone: 08-04-2022 19:24-0400 Body weight 173.27 kg [facility] Work Phone: 08-04-2022 19:24-0400 Diastolic blood pressure 90 mm[Hg] [facility] Work Phone: 08-04-2022 19:24-0400 Heart rate 104 /min [facility] Work Phone: 08-04-2022 19:24-0400 Respiratory rate 18 /min [facility] Work Phone: 08-04-2022 19:24-0400 SaO2% (BldA) [Mass fraction] 95 % [facility] Work Phone: 08-04-2022 19:24-0400 Systolic blood pressure 184 mm[Hg] [facility] Work Phone: 11-17-2021 10:02-0500 Body height 190.5 cm No PCP None HZ-Kcxrmgh-Nkljr nd Work Phone: 11-17-2021 10:02-0500 Body mass index (BMI) [Ratio] 50.37 kg/m2 No PCP None DX-Ycxlbeh-Cknoame Work Phone: 11-17-2021 10:02-0500 Body surface area Derived from formula 2.96 m2 No PCP None UO-Jucojwf-Katmwfw Work Phone: 11-17-2021 10:02-0500 Body weight 182.81 kg No PCP None WD-Gwuuplc-Vimsg nd Work Phone: 11-17-2021 10:02-0500 Diastolic blood pressure 104 mm[Hg] No PCP None KX-Cdhdizq-Yiwkggs Work Phone: 11-17-2021 10:02-0500 Heart rate 82 /min No PCP None HW-Sxmwpwl-Lwweb nd Work Phone: 11-17-2021 10:02-0500 Systolic blood pressure 155 mm[Hg] No PCP None NB-Gtnyjmi-Dyomyap Work Phone: 08-13-2021 09:55-0400 Body height 190.5 cm No PCP None XG-Wrmatvr-Fqbjy nd Work Phone: 08-13-2021 09:55-0400 Body mass index (BMI) [Ratio] 49 kg/m2 No PCP None DN-Sjavmui-Lhludws Work Phone: 08-13-2021 09:55-0400 Body surface area Derived from formula 2.92 m2 No PCP None RU-Uhvuwfv-Hgrlnxc Work Phone: 08-13-2021 09:55-0400 Body weight 177.83 kg No PCP None LJ-Yrvreau-Dpwqy nd Work Phone: 08-13-2021 09:55-0400 Diastolic blood pressure 102 mm[Hg] No PCP None BY-Cuvztlg-Rcxfiha Work Phone: 08-13-2021 09:55-0400 Heart rate 84 /min No PCP None SI-Rdqriiq-Doors nd Work Phone: 08-13-2021 09:55-0400 Systolic blood pressure 155 mm[Hg] No PCP None KE-Esskiif-Jkoweja Work Phone: 06-11-2021 15:06-0400 Body height 190.5 cm No PCP None EO-Hobvmgq-Wrwya nd Work Phone: 06-11-2021 15:06-0400 Body mass index (BMI) [Ratio] 23.87 kg/m2 No PCP None VT-Qqvaqbv-Dbsdrir Work Phone: 06-11-2021 15:06-0400 Body surface area Derived from formula 2.15 m2 No PCP None NL-Tipdhtv-Rurhmrr Work Phone: 06-11-2021 15:06-0400 Body weight 86.64 kg No PCP None JW-Ldnaoyq-Ouaoc nd Work Phone: 05-05-2021 15:00-0400 Diastolic blood pressure 100 mm[Hg] No Pcp Required [facility] 05-05-2021 15:00-0400 Heart rate 81 /min No Pcp Required [facility] 05-05-2021 15:00-0400 Respiratory rate 18 /min No Pcp Required [facility] 05-05-2021 15:00-0400 SaO2% (BldA) [Mass fraction] 95 % No Pcp Required [facility] 05-05-2021 15:00-0400 Systolic blood pressure 144 mm[Hg] No Pcp Required [facility] 05-05-2021 13:14-0400 Body height 190.5 cm No Pcp Required [facility] 05-05-2021 13:14-0400 Body temperature 97.16 [degF] No Pcp Required [facility] 05-05-2021 13:14-0400 Body weight 180 kg No Pcp Required [facility] Encounters Encounter Date Encounter Type Care Provider Facility Start: 11-22-2024 End: 11-22-2024 Office outpatient visit 25 minutes Irma Kee MD Work Phone: [facility] Comment on above: Benign prostatic hyp erplasia, unspecified whether lower urinary tract symptoms present; Nocturia; Male hypogonadism; Erectile dysfunction, unspecified erectile dysfunction type Start: 11-22-2024 End: 11-22-2024 ambulatory [facility] Start: 10-21-2024 End: 10-21-2024 ambulatory [facility] Start: 08-29-2024 End: 08-29-2024 Office outpatient new 45 minutes Villa Lubin PA-C Work Phone: [facility] Comment on above: Upper respiratory tr act infection, unspecified type (Primary Dx) Start: 08-29-2024 End: 08-29-2024 ambulatory [facility] Start: 08-07-2024 End: 08-07-2024 Telephone encounter Jeniffer Jose MD Work Phone: General Surgery Start: 08-07-2024 ambulatory JENIFFER JOSE Facili ty:[facility] Start: 08-07-2024 End: 08-07-2024 Subsequent hospital visit by physician [facility] Radiology Comment on above: Hernia [K46.9] Start: 07-25-2024 End: 07-26-2024 ambulatory JENIFFER JOSE Facility:[facility] Start: 07-25-2024 End: 07-25-2024 Patient encounter procedure Jeniffer Jose MD Work Phone: General Surgery Comment on above: Hernia (Primary Dx); Abdominal wall bulge Start: 05-01-2024 End: 05-01-2024 [facility] Start: 03-16-2024 End: 03-16-2024 Office outpatient visit 25 minutes Villa Lubin PA-C Work Phone: [facility] Comment on above: Pharyngitis, unspeci fied etiology (Primary Dx) Start: 03-16-2024 End: 03-16-2024 ambulatory [facility] Start: 01-11-2024 End: 01-11-2024 ambulatory [facility] Work Phone: Start: 01-11-2024 End: 01-11-2024 Patient encounter procedure [facility], Specimen Work Phone: Start: 01-11-2024 End: 01-11-2024 ambulatory Brandie Burt NP Facility:[facility] Start: 11-10-2023 End: 11-10-2023 Office outpatient visit 25 minutes Irma Kee MD Work Phone: [facility] Comment on above: Nocturia; Benign prostatic hyperplasia, unspecified whether lower urinary tract symptoms present; Male hypogonadism; Erectile dysfunction, unspecified erectile dysfunction type Start: 05-31-2023 AUDIT No PCP None [facility] Work Phone: Start: 05-19-2023 FUV, Provider: Irma Kee II, Status: Pen, Time: 3:30 PM No PCP None SQ-Cmonbli-Fecaelbf [facility] 232 DO Work Phone: Start: 05-19-2023 Office outpatient vi sit 25 minutes No PCP None JS-Vnjznfc-Pqdwanw Work Phone: Start: 05-19-2023 ambulatory MD IRMA KEE Fa cility:[id number] Start: 05-17-2023 Chart Update No PCP None [facility] 232 DO Work Phone: Start: 03-29-2023 AUDIT No PCP None [facility] 232 DO Work Phone: Start: 02-01-2023 ambulatory BRANDIE BURT Facilit y:[facility] Start: 02-01-2023 End: 02-01-2023 Subsequent hospital visit by physician [facility] Comment on above: Arrived Start: 01-22-2023 AUDIT No PCP None [facility] Work Phone: Start: 01-15-2023 AUDIT No PCP None [facility] Work Phone: Start: 11-18-2022 ambulatory MD IRMA KEE Fa cility:[id number] Start: 11-18-2022 Chart Update No PCP None [facility] Work Phone: Start: 11-09-2022 Chart Update No PCP None [facility] Work Phone: Start: 08-12-2022 Patient encounter procedure No PCP None VF-Vqtixuq-Tpfwadu Work Phone: Start: 08-12-2022 ambulatory MD IRMA KEE Fa cility:[id number] Start: 08-04-2022 End: 08-04-2022 ambulatory [facility] Work Phone: Start: 08-04-2022 End: 08-04-2022 Patient encounter procedure [facility], Specimen Start: 07-13-2022 AUDIT No PCP None [facility] Work Phone: Start: 02-17-2022 Office outpatient vi sit 15 minutes No PCP None FN-Xactbog-Hvkilnx Work Phone: Start: 02-11-2022 Chart Update No PCP None [facility] Work Phone: Start: 11-17-2021 Office outpatient vi sit 15 minutes No PCP None UN-Wrcnrnf-Gdlknpp Work Phone: Start: 08-13-2021 Office outpatient vi sit 15 minutes No PCP None DA-Vdnyaln-Cqwetoq Work Phone: Start: 07-02-2021 End: 07-02-2021 Subsequent hospital visit by physician [facility] Comment on above: Hemoptysis [R04.2] Start: 06-26-2021 AUDIT No PCP None [facility] 232 DO Work Phone: Start: 06-25-2021 AUDIT No PCP None [facility] Work Phone: Start: 06-23-2021 AUDIT No PCP None [facility] Work Phone: Start: 06-11-2021 Office outpatient ne w 45 minutes No PCP None ED-Pykwkkd-Bvvrnoe Work Phone: Start: 05-05-2021 End: 05-05-2021 Emergency department patient visit [facility] Emergency 11 Start: 10-05-2018 Patient encounter status [facility] Procedures Date Procedure Procedure Detail Performing Clinician Start: 08-07-2024 Ct abdomen w/contras t material Jeniffer Jose MD Work Phone: Start: 08-07-2024 Ct thorax w/contrast material Jeniffer Jose MD Work Phone: Hernia repair No PCP None Reconstruction of joint No P CP None Plan of Treatment Date Care Activity Detail Author Start: 09-14-2029 DTaP/Tdap/Td Vaccine s (2 - Td or Tdap) DTaP/Tdap/Td Vaccines (2 - Td or Tdap) [facility] Start: 09-14-2029 Urine microalbumin profile DTaP,Tdap,Td Vaccine (2 - Td or Tdap) [facility] Start: 05-01-2029 Prostate specific antigen measurement Prostate Cancer Screening Discussion [facility] Start: 05-11-2025 End: 11-22-2025 Estradiol (E2) [Mass/volume] in Serum or Plasma Estradiol Lab Routine Male hypogonadism Expected: 05/11/2025 (Approximate), Expires: 11/22/2025 [facility] Work Phone: Comment on above: Expected: 05/11/2025 (Approximate), Expires: 11/22/2025 Start: 05-11-2025 End: 11-22-2025 Hemoglobin and Hematocrit panel - Blood Hemoglobin and Hematocrit, Blood Lab Routine Male hypogonadism Expected: 05/11/2025 (Approximate), Expires: 11/22/2025 [facility] Work Phone: Comment on above: Expected: 05/11/2025 (Approximate), Expires: 11/22/2025 Start: 05-11-2025 End: 11-22-2025 Prostate specific Ag [Mass/volume] in Serum or Plasma Prostate Specific Antigen Lab Routine Nocturia Expected: 05/11/2025 (Approximate), Expires: 11/22/2025 [facility] Service Area Work Phone: Comment on above: Expected: 05/11/2025 (Approximate), Expires: 11/22/2025 Start: 05-11-2025 End: 11-22-2025 Testosterone [Mass/volume] in Serum or Plasma Testosterone Lab Routine Male hypogonadism Expected: 05/11/2025 (Approximate), Expires: 11/22/2025 [facility] Work Phone: Comment on above: Expected: 05/11/2025 (Approximate), Expires: 11/22/2025 Start: 08-07-2024 End: 08-07-2024 Patient encounter procedure 08/07/2024 2:00 PM EDT Appointment Radiology [address] [place] [address] CT CHEST W IVCON [[id number]] Radiology Comment on above: CT CHEST W IVCON [[id number]] Start: 06-11-2024 Covid-19 Vaccine ( season) Covid-19 Vaccine () [facility] Start: 06-11-2024 COVID-19 Vaccine () COVID-19 Vaccine () [facility] Start: 06-11-2024 Influenza vaccination [facility] Start: 05-10-2024 End: 11-10-2024 Hemoglobin and Hematocrit panel - Blood Hemoglobin and Hematocrit, Blood Lab Routine Male hypogonadism Expected: 05/10/2024 (Approximate), Expires: 11/10/2024 [facility] Work Phone: Comment on above: Expected: 05/10/2024 (Approximate), Expires: 11/10/2024 Start: 05-10-2024 End: 11-10-2024 Prostate specific Ag [Mass/volume] in Serum or Plasma Prostate Specific Antigen Lab Routine Nocturia Expected: 05/10/2024 (Approximate), Expires: 11/10/2024 [facility] Service Area Work Phone: Comment on above: Expected: 05/10/2024 (Approximate), Expires: 11/10/2024 Start: 05-10-2024 End: 11-10-2024 Testosterone [Mass/volume] in Serum or Plasma Testosterone Lab Routine Male hypogonadism Expected: 05/10/2024 (Approximate), Expires: 11/10/2024 [facility] Work Phone: Comment on above: Expected: 05/10/2024 (Approximate), Expires: 11/10/2024 Start: 05-08-2024 End: 05-08-2024 Telemedicine consultation with patient 05/08/2024 8:15 AM EDT Telemedicine [facility] [address] [place] [address] Irma Kee MD [address] [place] [address] [facility] Start: 05-02-2024 DIABETES SCREEN DIABETES SCREEN [facility] Start: 05-02-2024 Diabetes Screening Diabetes Screenin g [facility] Start: 06-11-2023 COVID-19 Vaccine ( season) COVID-19 Vaccine ( season) [facility] Start: 06-11-2023 Influenza vaccination C [facility] Start: 05-19-2023 FUV, Provider: Irma Kee II, Status: Pen, Time: 3:30 PM FUV, Provider: Irma Kee II, Status: Pen, Time: 3:30 PM JQ-Jdpewdp-Nlbejdv Work Phone: Start: 11-18-2022 FUV, Provider: Irma Kee II, Status: Pen, Time: 3:30 PM FUV, Provider: Irma Kee II, Status: Pen, Time: 3:30 PM [facility] Work Phone: Start: 10-11-2022 DEPRESSION ASSESSMENT DEPRESSION ASS ESSMENT [facility] Start: 08-12-2022 FUV, Provider: Irma Kee II, Status: Pen, Time: 3:30 PM FUV, Provider: Irma Kee II, Status: Pen, Time: 3:30 PM [facility] Work Phone: Start: 02-18-2022 VIRFUVERIC, Provider : Irma Kee II, Status: Pen, Time: 10:15 AM VIRFUYAEL, Provider: Irma Kee II, Status: Pen, Time: 10:15 AM RY-Joahati-Zrtzmux Work Phone: Start: 02-17-2022 VIRFUVNICOLEE, Provider : Irma Kee II, Status: Pen, Time: 10:45 AM VIRFUVNICOLEE, Provider: Irma Kee II, Status: Pen, Time: 10:45 AM [facility] Work Phone: Start: 11-17-2021 FUV, Provider: Irma Kee II, Status: Pen, Time: 9:45 AM FUV, Provider: Irma Kee II, Status: Pen, Time: 9:45 AM RE-Acqskaf-Pehvmdl Work Phone: Start: 08-13-2021 FUV, Provider: Irma Kee II, Status: Pen, Time: 9:30 AM FUV, Provider: Irma Kee II, Status: Pen, Time: 9:30 AM [facility] Work Phone: Start: 06-11-2021 Influenza vaccination INFLUENZA (#1) [facility] Start: 2018 SHINGRIX VACCINE (1 of 2) SHINGRIX VACCINE (1 of 2) [facility] Start: 2013 COLOGUARD (FIT-DNA) COLOGUARD (FIT-D NA) [facility] Start: 2013 Colonoscopy COLONOSCOPY [facility] Start: 2013 COLORECTAL CANCER SCREENING COLORECTAL CANCER SCREENING [facility] Start: [address] COLONOGRAPHY [facility] Start: 2013 FECAL OCCULT BLOOD FECAL OCCULT BLOO D [facility] Start: 2013 Screening for malign ant neoplasm of colon [facility] Start: 2013 SIGMOIDOSCOPY SIGMOIDOSCOPY [facility] Start: 12-18-2003 Lipid panel Lipid Screening [facility] Start: 12-18-2003 LIPID SCREEN LIPID SCREEN [facility] Start: 12-18-1987 Hepatitis B Vaccine (1 of 3 - 19+ 3-dose series) Hepatitis B Vaccine (1 of 3 - 19+ 3-dose series) [facility] Start: 12-18-1987 Hepatitis B Vaccines (1 of 3 - 19+ 3-dose series) Hepatitis B Vaccines (1 of 3 - 19+ 3-dose series) [facility] Start: 12-18-1987 Pneumococcal vaccination Pneum ococcal Vaccine (1 of 2 - PCV) [facility] Start: 12-18-1987 Urine microalbumin profile DTAP,TDAP,TD (1 - Tdap) [facility] Start: 1986 Anxiety Screening Anxiety Screening [facility] Start: 1986 Depression Screening Depression Scre ening [facility] Start: 1986 Diabetes mellitus screening Diabetes Screening [facility] Start: 1986 HEPATITIS C SCREENING HEPATITIS C [facility] Start: 1986 Hepatitis C screening Hepatitis C [facility] Start: 1986 HIV SCREENING HIV SCREENING [facility] Start: 1986 HIV screening HIV Screening [facility] Start: 1980 Adult depression screening assessment DEPRESSION SCREENING [facility] Start: 1980 COVID-19 VACCINE (1) COVID-19 VACCIN E (1) [facility] Start: 1974 Pneumococcal vaccination Pneum ococcal Vaccine (1 of 2 - PCV) [facility] Start: 1974 Pneumococcal Vaccine : Pediatrics (0 to 5 Years) and At-Risk Patients (6 to 64 Years) (1 - PCV) Pneumococcal Vaccine: Pediatrics (0 to 5 Years) and At-Risk Patients (6 to 64 Years) (1 - PCV) [facility] Start: 1974 Pneumococcal Vaccine : Pediatrics (0 to 5 Years) and At-Risk Patients (6 to 64 Years) (1 of 2 - PCV) Pneumococcal Vaccine: Pediatrics (0 to 5 Years) and At-Risk Patients (6 to 64 Years) (1 of 2 - PCV) [facility] Start: 1969 MMR Vaccines (1 of 1 - Standard series) MMR Vaccines (1 of 1 - Standard series) [facility] Start: 06-19-1969 COVID-19 VACCINE (#1) COVID-19 VACCI NE (#1) [facility] Start: 1968 HEPATITIS B (1 of 3 - 3-dose series) HEPATITIS B (1 of 3 - 3-dose series) [facility] Start: 1968 Hepatitis B Vaccines (1 of 3 - 3-dose series) Hepatitis B Vaccines (1 of 3 - 3-dose series) [facility] Start: 1968 HIV screening HIV Screening [facility] Start: 1968 Lipid panel Lipid Panel [facility] Start: 1968 Screening for malign ant neoplasm of colon [facility] Start: 1968 Yearly Adult Physical Yearly Adult P hysical [facility] End: 08-24-2025 CT Abdomen W contrast IV CT ABDOMEN W IVCON Radiology Routine Hernia 1 Occurrences starting 07/25/2024 until 08/24/2025 [facility] Comment on above: 1 Occurrences starti ng 07/25/2024 until 08/24/2025 End: 08-24-2025 CT Chest W contrast IV CT CHEST W IVCON Radiology Routine Hernia 1 Occurrences starting 07/25/2024 until 08/24/2025 [facility] Work Phone: Comment on above: 1 Occurrences starti ng 07/25/2024 until 08/24/2025 [facility] Immunizations Immunization Date Immunization Notes Care Provider Rodo van 07-16-2022 influenza virus vaccine, unspecified formulation Irma Kee MD Work Phone: [facility] Work Phone: 09-14-2019 tetanus toxoid, redu patric diphtheria toxoid, and acellular pertussis vaccine, adsorbed [facility] Payers Date Payer Category Payer Self-pay [id number] 2024 Unknown [id number] 2023 Unknown 2020 Private Health Insurance [employer] A ETNA CHOICE POS II [id number] 2020-Present POS [id number] 1994 Managed Care (Private) [id number] 1994 Private Health Insurance [id number] 1994 Private Health Insurance [id number] 1968 Unknown [id number] 56 1968 Unknown [id number] 56 1968 Unknown [id number] 56 1968 Unknown [id number] 1968 Unknown [id number] 243 1968 Unknown [id number] 1968 Unknown [id number] 1968 Unknown [id number] 244 Unknown [id number] 62 Unknown [id number] 62 Social History Date Type Detail Facility [facility] Start: 07-01-2021 End: 07-15-2023 Tobacco smoking consumption unknown [facility] Start: 11-10-2023 End: 11-22-2024 Former smoker Former smoker EM-Pfguudn-Tljmomy Work Phone: Start: 1970 Sex Assigned At Not on file [facility] Start: 10-31-2023 End: 11-22-2024 Exposure to SARS-CoV-2 (event) Not sure [facility] Start: 1970 Sex Assigned At Male [facility] Start: 11-10-2023 Tobacco smoking stat NHIS Smokes tobacco daily [facility] Work Phone: Start: 11-10-2023 End: 07-25-2024 Tobacco use and exposure User of smokeless tobacco [facility] Work Phone: History of tobacco use Snuff User [facility] Work Phone: Start: 11-10-2023 End: 11-22-2024 Alcohol intake Ex-drinker (finding) [facility] Work Phone: Start: 11-10-2023 End: 11-22-2024 Tobacco use panel [facility] Work Phone: Start: 07-25-2024 Tobacco smoking stat [facility] Occasional tobacco smoker [facility] History of tobacco use Cigarette Smoker [facility] History of tobacco use Chews Tobacco [facility] Start: 07-25-2024 Alcoholic beverage intake Current drinker of alcohol (finding) [facility] National Score (1-100), lower number is lower risk 66 [facility] Start: 07-20-2024 Tobacco Comment snuff [facility] Clinical Notes 09-10-2020 to 11-22-2024 Irma Kee MD - 11/22/2024 8:30 AM Bao Lubin PA-C - 08/29/2024 9:[address] - 08/07/2024 2:00 PM Lucien Bejarano RN - 08/07/2024 2:00 PM EDT Note Date & Type Note Facility 11-22-2024 History of Present illness Narrative Subjective Patient ID: Matt Christianson is a 53 y.o. male. HPI Patient has hx of hypogonadism. He is taking Xyosted now... Most recent labs were done on 11/04. T level was 599, Hematocrit was 58.4, Hgb was 18.6 (patient gave blood after this), PSA was 3.39, and Estradiol was 22. Prior Labs were done on 05/03. T level was 608, Hemtocrit was 56.3, Hgb was 18.1 and PSA was 3.11. Prior T level was 215 on 11/03. Prior T level was 338 on 08/02. Prior Hematocrit was 53.6, and HGB was 17.0 on 06/02. Prior PSA was 2.44 on 06/02. Prior PSA was 1.62. Chronic BPH sx are mild and stable. Denies urgency and frequency. Denies dysuria. Denies hematuria. Nocturia x1. No medication for LUT'S. ED is chronic. Sildenafil PRN. Review of Systems Constitutional: Negative for chills and fever. HENT: Negative. Eyes: Negative. Respiratory: Negative for cough and shortness of breath. Cardiovascular: Negative for chest pain and leg swelling. Gastrointestinal: Negative for nausea. Endocrine: Negative. Genitourinary: Negative for difficulty urinating. Negative except for documented in HPI Allergic/Immunologic: Negative. Neurological: Alert & oriented X 3 Hematological: Denies blood thinners Psychiatric/Behavioral: Negative. Objective Physical Exam Vitals and nursing note reviewed. Constitutional: General: He is not in acute distress. Appearance: Normal appearance. Pulmonary: Effort: Pulmonary effort is normal. Abdominal: Tenderness: There is no abdominal tenderness. Genitourinary: Comments: Kidneys non palpable bilaterally Bladder non palpable or tender Scrotum no mass, No hydrocele Epididymis- No spermatocele. Non Tender. Testicles: No mass WNL Urethra: No discharge Penis within normal limits... No lesions. circumcised Prostate - symmetric, no nodules. BENIGN Seminal Vesicals: No mass. Sphincter tone: normal Neurological: Mental Status: He is alert. Assessment/Plan Diagnoses and all orders for this visit: Benign prostatic hyperplasia, unspecified whether lower urinary tract symptoms present Nocturia Male hypogonadism Erectile dysfunction, unspecified erectile dysfunction type All available PSA values reviewed, Options discussed. Questions answered. Discussed slowly rising PSA Diet changes for prostate health discussed and educational information given. Pros/Cons of prostate health supplements discussed. Treatment options for LUTS reviewed Discussed timed voiding. Discussed fluid and caffeine intake Treatment options for ED reviewed-patient alternates. Sildenafil Refills authorized Cialis Rx refilled Lifestyle change to help prevent UTIs discussed. Encouraged fluid intake. pros/cons of Testosterone replacement reviewed. Replacement options discussed. Questions answered. Available levels reviewed. Xyosted Rx given Anastrazole Rx refilled will decrease to 1/2 pill 2x/week F/U with labs including Estrogen 6 months virtual documented in this encounter [facility] Work Phone: 08-29-2024 History of Present illness Narrative Subjective Patient ID: Matt Christianson is a 53 y.o. male who presents for URI (Cough, congestion x 10 days). HPI Presents for evaluation of URI. Symptoms including cough, congestion, have been present for 10 days and refractory to OTC meds. No fever, chills, nausea, vomiting, abdominal pain, CP, or SOB. No exacerbating factors Review of Systems Constitutional: See HPI ENT: See HPI Respiratory: See HPI Neurologic: Alert and oriented X4, No numbness, No tingling. All other systems are negative Objective BP 149/87 Pulse 82 Temp 36.5 C (97.7 F) Resp 16 Ht 1.905 m (6' 3) Wt (!) 159 kg (350 lb) SpO2 95% BMI 43.75 kg/m Physical Exam General: Alert and oriented, No acute distress. Eye: Pupils are equal, round and reactive to light, Normal conjunctiva. HENT: Normocephalic, mild oropharyngeal erythema without edema or exudate; uvula midline; nontender sinuses; nasal congestion noted; nontender cervical lymph nodes Neck: Supple Respiratory: Respirations are non-labored; LCTA bilaterally Musculoskeletal: Normal ROM and strength Integumentary: Warm, Dry, Intact, No pallor, No rash. Neurologic: Alert, Oriented, Normal sensory, Cranial Nerves II-XII are grossly intact Psychiatric: Cooperative, Appropriate mood & affect. Assessment/Plan Exam is consistent with an upper respiratory infection. Prescriptions for Z-Taqueria, Medrol, Bromfed. Patient requesting antifungal for possible thrush. Patient's clinical presentation is otherwise unremarkable at this time. Patient is discharged with instructions to follow-up with primary care or seek emergency medical attention for worsening symptoms or any new concerns. Problem List Items Addressed This Visit None Visit Diagnoses Upper respiratory tract infection, unspecified type - Primary Relevant Medications methylPREDNISolone (Medrol Dospak) 4 mg tablets lubdjfcrnqosdzg-tqefqazus-TC (Bromfed DM) 2-30-10 mg/5 mL syrup clotrimazole (Mycelex) 10 mg tono azithromycin (Zithromax) 250 mg tablet Final diagnoses: [J06.9] Upper respiratory tract infection, unspecified type documented in this encounter [facility] Work Phone: 08-07-2024 History of Present illness Narrative Radiology Service Progress Note PATIENT NAME: Matt Christianson DATE OF SERVICE: August 07, 2024 TIME: 2:37 PM PATIENT IDENTITY VERIFICATION COMPLETED USING TWO (2) IDENTIFIERS: Name and Date of confirmed by patient verbally and Name and Date of confirmed by identification band. FALL SCREENING: Has the patient had 2 falls in the last year or 1 fall with injury or currently using an Ambulatory Assistive Device (Walker, Cane, Wheelchair, Crutches, etc.)? No PATIENT GENDER DATA: Male PATIENT RELEVANT IMPLANT DATA REVIEWED: Yes PATIENT PRESENTS WITH AN IMPLANTABLE OR ATTACHED AIR POLLUTION ENGINEER: No RADIOLOGY DEPARTMENT: CT; Exam(s) Completed: Abdomen and Chest PERIPHERAL IV DATA: Site assessment: Clean,Dry and Intact, Site disposition Discontinued SIGNED BY: EDGARD Anaya August 07, 2024 2:37 PM documented in this encounter [facility] 08-07-2024 Note HNO ID: [id number] Author: MADALYN CAGE CT Service: Radiology Author Type: Technologist Type: Progress Notes Filed: 08/07/2024 14:38 Note Text: Radiology Service Progress Note PATIENT NAME: Matt Christianson DATE OF SERVICE: August 07, 2024 TIME: 2:37 PM PATIENT IDENTITY VERIFICATION COMPLETED USING TWO (2) IDENTIFIERS: Name and Date of confirmed by patient verbally and Name and Date of confirmed by identification band. FALL SCREENING: Has the patient had 2 falls in the last year or 1 fall with injury or currently using an Ambulatory Assistive Device (Walker, Cane, Wheelchair, Crutches, etc.)? No PATIENT GENDER DATA: Male PATIENT RELEVANT IMPLANT DATA REVIEWED: Yes PATIENT PRESENTS WITH AN IMPLANTABLE OR ATTACHED AIR POLLUTION ENGINEER: No RADIOLOGY DEPARTMENT: CT; Exam(s) Completed: Abdomen and Chest PERIPHERAL IV DATA: Site assessment: Clean,Dry and Intact, Site disposition Discontinued SIGNED BY: EDGARD Anaya August 07, 2024 2:37 PM [facility] 08-07-2024 Nurse Note Radiology Service Progress Note DATE OF SERVICE: August 07, 2024 TIME: 2:30 PM PATIENT WEIGHT: 355 LBS PATIENT IDENTITY VERIFICATION COMPLETED USING TWO (2) STANDARD IDENTIFIERS: Name and Date of confirmed by patient verbally and Name and Date of confirmed by identification band. FALL SCREENING: Has the patient had 2 falls in the last year or 1 fall with injury or currently using an Ambulatory Assistive Device (Walker, Cane, Wheelchair, Crutches, etc.)? No PATIENT GENDER DATA: Male ALLERGIES: Reviewed and unchanged CONTRAST ALLERGY: No EXAM: CT -CONTRAST INDUCED NEPHROPATHY RISK FACTORS: Not applicable CREATININE: Creatinine Date Value Ref Range Status 05/02/2021 0.98 0.73 - 1.22 mg/dL Final eGFR-All Other Races Date Value Ref Range Status 05/02/2021 >60 Final Comment: eGFR (Estimated GFR) Units of measure: mL/min/1.73 meters squared eGFR is derived from the reexpressed MDRD Study equation using the following parameters: serum creatinine, age, gender and race. The creatinine assay has been calibrated to be traceable to IDMS. An eGFR <60 mL/min/1.73m2 for >3 months is consistent with chronic kidney disease. Refer to KDOQI guidelines for clinical interpretation. In patients with unstable renal function, e.g. those with acute kidney injury, the eGFR may not accurately reflect actual GFR. eGFR- Date Value Ref Range Status 05/02/2021 >60 Final P.O.C.T. RESULTS: N/A August 07, 2024 TREATMENT: N/A IV SITE: Ambulatory: A peripheral IV was started in the Right with a Angio cath: 22 gauge. IV SITE APPEARANCE: Clean,Dry and Intact SIGNATURE: Lucien León RN PATIENT NAME: Matt Christianson DATE: August 07, 2024 TIME: 2:30 PM [facility] 08-07-2024 Nurse Note Radiology Service Progress Note DATE OF SERVICE: August 07, 2024 TIME: 2:30 PM PATIENT WEIGHT: 355 LBS PATIENT IDENTITY VERIFICATION COMPLETED USING TWO (2) STANDARD IDENTIFIERS: Name and Date of confirmed by patient verbally and Name and Date of confirmed by identification band. FALL SCREENING: Has the patient had 2 falls in the last year or 1 fall with injury or currently using an Ambulatory Assistive Device (Walker, Cane, Wheelchair, Crutches, etc.)? No PATIENT GENDER DATA: Male ALLERGIES: Reviewed and unchanged CONTRAST ALLERGY: No EXAM: CT -CONTRAST INDUCED NEPHROPATHY RISK FACTORS: Not applicable CREATININE: Creatinine Date Value Ref Range Status 05/02/2021 0.98 0.73 - 1.22 mg/dL Final eGFR-All Other Races Date Value Ref Range Status 05/02/2021 >60 Final Comment: eGFR (Estimated GFR) Units of measure: mL/min/1.73 meters squared eGFR is derived from the reexpressed MDRD Study equation using the following parameters: serum creatinine, age, gender and race. The creatinine assay has been calibrated to be traceable to IDMS. An eGFR <60 mL/min/1.73m2 for >3 months is consistent with chronic kidney disease. Refer to KDOQI guidelines for clinical interpretation. In patients with unstable renal function, e.g. those with acute kidney injury, the eGFR may not accurately reflect actual GFR. eGFR- Date Value Ref Range Status 05/02/2021 >60 Final P.O.C.T. RESULTS: N/A August 07, 2024 TREATMENT: N/A IV SITE: Ambulatory: A peripheral IV was started in the Right with a Angio cath: 22 gauge. IV SITE APPEARANCE: Clean,Dry and Intact SIGNATURE: Lucien León RN PATIENT NAME: Matt Christianson DATE: August 07, 2024 TIME: 2:30 PM documented in this encounter [facility] 08-07-2024 Telephone encounter Note Patient phoned in and left a VM, he states he forgot his orders but is headed this way for his CT scans, he would like to confirm that the CT orders are in the computer and they can complete his scans. VM left for patient confirming orders are in the system and [facility] radiology will be able to perform his scans [facility] 08-07-2024 Miscellaneous Notes Patient phoned in and left a VM, he states he forgot his orders but is headed this way for his CT scans, he would like to confirm that the CT orders are in the computer and they can complete his scans. VM left for patient confirming orders are in the system and [facility] radiology will be able to perform his scans documented in this encounter [facility] 07-25-2024 Note HNO ID: [id number] Author: JENIFFER JOSE MD Service: ? Author Type: Physician Type: Progress Notes Filed: 07/27/2024 13:05 Note Text: Assessment IMPRESSION AND PLAN: 53 year old wm with left flank asymmetry, clinically pseudohernia, offered obs vs ct, pt prefers ct, [facility]. In case pseudohernia confirmed, likely result of traumatic coughing and likely to spontaneously resolve over next several months HPI: Matt Christianson is a 53 year old male,He presents for the evaluation of left flank bulge. Feels may have hernia. In [place] had a violent cough, one specific episode so severe that he noted severe pain left costal margin, then costal margin became black and blue. Denies any pain but thinks he feels a hole and notes a bulge that is enlarging, resolves when supine PAST MEDICAL HISTORY Diagnosis Date Erectile dysfunction Essential hypertension Sleep apnea PAST SURGICAL HISTORY Procedure Laterality Date PAST SURGICAL HISTORY OF Right 3 knee scopes; torn meniscus 3 seperate times REPAIR INCISIONAL HERNIA,REDUCIBLE 2009 FAMILY HISTORY Problem Relation Age of Onset Lung Cancer Mother other (bypass surgery) Father Arthritis Father Aneurysm Father CURRENT MEDICATIONS: XYOSTED 100 mg/0.5 mL AutoInjector Inject 100 mg subcutaneously one time a week. Tadalafil (CIALIS) 20 mg tablet Take 20 mg by mouth once daily as needed. sildenafil (VIAGRA) 50 mg tablet TAKE 1 TABLET BY MOUTH ONCE DAILY NEEDED 30 MINUTES prior to sexual activity anastrozole (ARIMIDEX) 1 mg tablet Take 1 mg by mouth. minocycline (MINOCIN, DYNACIN) 50 mg capsule Take 50 mg by mouth. losartan (COZAAR) 50 mg tablet Take 50 mg by mouth once daily. iv contrast (will be provided with radiology test) CT Chest Abdomen-Inject, intravenously, once for 1 dose.No IV access, insert saline lock prior to the beginning of sedation, infusion, injection of imaging exam. Discontinue saline lock post exam. If Pt. has a central line or IVAD, may access for administration according to line specific nursing protocol. Once exam is complete flush line and de-access according to line specific nursing protocol in the CT contrast administration guidelines link. enteric contrast (will be provided with radiology test) For CT Chest Abdomen W IVCON order Administer, As Directed One Time Only, via Oral, Rectal, both Oral and Rectal, Enteric Tube, Stoma or Indwelling Catheter, Enteric Contrast as designated per enteric contrast guidelines CURRENT ALLERGIES: ALLERGIES Allergen Reactions Cephalexin Intolerance, Other: See Comments Social History Tobacco Use Smoking status: Some Days Types: Cigarettes Smokeless tobacco: Current Types: Chew Tobacco comments: snuff Vaping Use Vaping status: Never Used Substance Use Topics Alcohol use: Yes Drug use: Never Ros: as above EXAM: BP 168/106 Pulse 90 Ht 190.5 cm (6' 3) Wt (!) 161 kg (355 lb) BMI 44.37 kg/m? BP 168/106 Pulse 90 Ht 190.5 cm (6' 3) Wt (!) 161 kg (355 lb) BMI 44.37 kg/m? Body mass index is 44.37 kg/m?. General appearance: Well appearing, alert, in no acute distress Head: Normocephalic, atraumatic Eyes: Anicteric sclera , Pupils are equally round and reactive Neck: No JVD, Trachea midline Lungs:Clear to auscultation, no wheezing or rhonchi Heart: RRR without murmur, gallop, or rubs. No ectopy Abdomen: Abdomen soft, non-tender. Non distended. No masses, organomegaly, left lateral abd/flank, just inferior to costal margin with mild visible asymmetry when standing, no palp defect no change with valsalva, not appreciated when supine Extremities:No clubbing, cyanosis, or edema. Neuro: Alert and oriented times three, No apparent distress RADIOLOGY: none Jeniffer Jose MD 07/25/2024 9:09 AM [facility] 07-25-2024 History of Present illness Narrative Assessment IMPRESSION AND PLAN: 53 year old wm with left flank asymmetry, clinically pseudohernia, offered obs vs ct, pt prefers ct, [facility]. In case pseudohernia confirmed, likely result of traumatic coughing and likely to spontaneously resolve over next several months HPI: Matt Christianson is a 53 year old male,He presents for the evaluation of left flank bulge. Feels may have hernia. [place] had a violent cough, one specific episode so severe that he noted severe pain left costal margin, then costal margin became black and blue. Denies any pain but thinks he feels a hole and notes a bulge that is enlarging, resolves when supine PAST MEDICAL HISTORY Diagnosis Date Erectile dysfunction Essential hypertension Sleep apnea PAST SURGICAL HISTORY Procedure Laterality Date PAST SURGICAL HISTORY OF Right 3 knee scopes; torn meniscus 3 seperate times REPAIR INCISIONAL HERNIA,REDUCIBLE 2009 FAMILY HISTORY Problem Relation Age of Onset Lung Cancer Mother other (bypass surgery) Father Arthritis Father Aneurysm Father CURRENT MEDICATIONS: XYOSTED 100 mg/0.5 mL AutoInjector Inject 100 mg subcutaneously one time a week. Tadalafil (CIALIS) 20 mg tablet Take 20 mg by mouth once daily as needed. sildenafil (VIAGRA) 50 mg tablet TAKE 1 TABLET BY MOUTH ONCE DAILY NEEDED 30 MINUTES prior to sexual activity anastrozole (ARIMIDEX) 1 mg tablet Take 1 mg by mouth. minocycline (MINOCIN, DYNACIN) 50 mg capsule Take 50 mg by mouth. losartan (COZAAR) 50 mg tablet Take 50 mg by mouth once daily. iv contrast (will be provided with radiology test) CT Chest Abdomen-Inject, intravenously, once for 1 dose.No IV access, insert saline lock prior to the beginning of sedation, infusion, injection of imaging exam. Discontinue saline lock post exam. If Pt. has a central line or IVAD, may access for administration according to line specific nursing protocol. Once exam is complete flush line and de-access according to line specific nursing protocol in the CT contrast administration guidelines link. enteric contrast (will be provided with radiology test) For CT Chest Abdomen W IVCON order Administer, As Directed One Time Only, via Oral, Rectal, both Oral and Rectal, Enteric Tube, Stoma or Indwelling Catheter, Enteric Contrast as designated per enteric contrast guidelines CURRENT ALLERGIES: ALLERGIES Allergen Reactions Cephalexin Intolerance, Other: See Comments Social History Tobacco Use Smoking status: Some Days Types: Cigarettes Smokeless tobacco: Current Types: Chew Tobacco comments: snuff Vaping Use Vaping status: Never Used Substance Use Topics Alcohol use: Yes Drug use: Never Ros: as above EXAM: BP 168/106 Pulse 90 Ht 190.5 cm (6' 3) Wt (!) 161 kg (355 lb) BMI 44.37 kg/m BP 168/106 Pulse 90 Ht 190.5 cm (6' 3) Wt (!) 161 kg (355 lb) BMI 44.37 kg/m Body mass index is 44.37 kg/m . General appearance: Well appearing, alert, in no acute distress Head: Normocephalic, atraumatic Eyes: Anicteric sclera , Pupils are equally round and reactive Neck: No JVD, Trachea midline Lungs:Clear to auscultation, no wheezing or rhonchi Heart: RRR without murmur, gallop, or rubs. No ectopy Abdomen: Abdomen soft, non-tender. Non distended. No masses, organomegaly, left lateral abd/flank, just inferior to costal margin with mild visible asymmetry when standing, no palp defect no change with valsalva, not appreciated when supine Extremities:No clubbing, cyanosis, or edema. Neuro: Alert and oriented times three, No apparent distress RADIOLOGY: none Jeniffer Jose MD 07/25/2024 9:09 AM documented in this encounter [facility] 03-16-2024 History of Present illness Narrative Subjective Patient ID: Matt Christianson is a 53 y.o. male who presents for Sore Throat (L ear pain x 1 week). HPI Presents for evaluation of throat swelling and pain. Pain began 2-3 days captain cannery tender with associated ear discomfort. Pain is exacerbated by oral intake. Pt did not attempt any OTC meds or conservative measures. No fever, chills, vomiting, URI symptoms, or other constitutional S/S. pt has seasonal allergies and states that symptoms preceded sore throat. No other complaints. Review of Systems Constitutional: See HPI ENT: See HPI Respiratory: See HPI Neurologic: Alert and oriented X4, No numbness, No tingling. All other systems are negative Objective BP (!) 143/93 (BP Location: Right arm, Patient Position: Sitting) Pulse 84 Temp 36.7 C (98.1 F) (Oral) Resp 14 SpO2 95% Physical Exam General: Alert and oriented, No acute distress. Eye: Pupils are equal, round and reactive to light, Normal conjunctiva. HENT: Normocephalic, mild to moderate oropharyngeal erythema and edema without exudate; uvula is midline; bilateral tympanic membranes and canals are unremarkable Neck: Supple; nontender cervical lymph nodes Respiratory: Respirations are non-labored Musculoskeletal: Normal ROM and strength Integumentary: Warm, Dry, Intact, No pallor, No rash. Neurologic: Alert, Oriented, Normal sensory, Cranial Nerves II-XII are grossly intact Psychiatric: Cooperative, Appropriate mood & affect. Assessment/Plan Exam is consistent with pharyngitis. Prescriptions for Augmentin, low-dose prednisone, and Bromfed. Patient's clinical presentation is otherwise unremarkable at this time. Patient is discharged with instructions to follow-up with primary care or seek emergency medical attention for worsening symptoms or any new concerns. Problem List Items Addressed This Visit None Visit Diagnoses Pharyngitis, unspecified etiology - Primary Relevant Medications amoxicillin-pot clavulanate (Augmentin) 875-125 mg tablet xqqlzhacoicuakw-xcuagesyh-IT (Bromfed DM) 2-30-10 mg/5 mL syrup predniSONE (Deltasone) 10 mg tablet Final diagnoses: [J02.9] Pharyngitis, unspecified etiology documented in this encounter [facility] Work Phone: 11-10-2023 History of Present illness Narrative Subjective Patient ID: Matt Christianson is a 52 y.o. male. HPI hx of hypogonadism. He is taking Jatenzo BID and Anastrozole. . Most recent T level was 215 on 11/03. Prior T level was 338 on 08/02. Recent Hematocrit was 53.6, and HGB was 17.0 on 06/02. Most recent PSA was 2.44 on 06/02. Prior PSA was 1.62. Chronic BPH sx are mild and stable. Denies urgency and frequency. Denies dysuria. Denies hematuria. Nocturia x1. No medication for LUT'S. ED is chronic. Sildenafil PRN. Review of Systems Constitutional: Negative for chills and fever. HENT: Negative. Eyes: Negative. Respiratory: Negative for cough and shortness of breath. Cardiovascular: Negative for chest pain and leg swelling. Gastrointestinal: Negative for nausea. Endocrine: Negative. Genitourinary: Negative for difficulty urinating. Negative except for documented in HPI Allergic/Immunologic: Negative. Neurological: Alert & oriented X 3 Hematological: Denies blood thinners Psychiatric/Behavioral: Negative. Objective Physical Exam No PE done given the virtual nature of visit. Assessment/Plan Diagnoses and all orders for this visit: Nocturia Benign prostatic hyperplasia, unspecified whether lower urinary tract symptoms present Male hypogonadism Erectile dysfunction, unspecified erectile dysfunction type All available PSA values reviewed, Options discussed. Questions answered. Diet changes for prostate health discussed and educational information given. Pros/Cons of prostate health supplements discussed. Treatment options for LUTS reviewed Discussed timed voiding. Discussed fluid and caffeine intake Treatment options for ED reviewed. Continue Sildenafil 50mg Rx refilled Lifestyle change to help prevent UTIs discussed. Encouraged fluid intake. pros/cons of Testosterone replacement reviewed. Replacement options discussed. Questions answered. Available levels reviewed. Jatenzo Rx refilled Pros/cons of Aromatase inhibitors F/U with 6 months with labs documented in this encounter [facility] Work Phone: 08-01-2022 History of Present illness Narrative Patient presents to the office today for a 3 MO F/'U w/Testosterone Level. Testosterone Level was 195 (08/01) Previous was 373 (03/01) PSA was 1.65 (08/01) Previous was 1.23 (03/01) H&H were 54.8 and 18.0 (11/01) Patient is taking Jatenzo 237mg bid feels its working. Mood and energy level is good. BPH sx are mild and stable. Denies urgency and frequency. Denies dysuria. Denies hematuria. Nocturia x1. No medication for LUT'S. No hx of kidney stones. ED is chronic. Sildenafil PRN. This is helpful sometimesControlled Medication Agreement was signed on 08/12/22 [id number] Work Phone: 08-01-2022 History of Present illness Narrative Patient presents to the office today for a 3 MO F/'U w/Testosterone Level. Testosterone Level was 195 (08/01) Previous was 373 (03/01) PSA was 1.65 (08/01) Previous was 1.23 (03/01) H&H were 54.8 and 18.0 (11/01) Patient is taking Jatenzo 237mg bid feels its working. Mood and energy level is good. BPH sx are mild and stable. Denies urgency and frequency. Denies dysuria. Denies hematuria. Nocturia x1. No medication for LUT'S. No hx of kidney stones. ED is chronic. Sildenafil PRN. This is helpful sometimesControlled Medication Agreement was signed on 08/12/22 [id number] Work Phone: 02-17-2022 Chief complaint Narrative - Reported An interactive audio and video telecommunication system which permits real time communications between the patient (at the originating site) and provider (at the distant site) was utilized to provide this telehealth service.Verbal consent was requested and obtained from MATT CHRISTIANSON on this date, 02/17/2022 10:45 AM , for a telehealth visit.3 month follow up with labs [id number]-Ubeshas Work Phone: 08-31-2021 History of Present illness Narrative Patient presents to the office today for a 3 MO F/'U w/Testosterone Level. Testosterone Level was 373 (03/01) Previous T level was 209 (08/31) PSA is 1.23 (03/01) Previous was PSA was 1.53 (08/31) H&H 52.8 and 17.4 (03/01).. Patient is taking Jatenzo 237mg bid.. BPH sx are mild and stable. Denies urgency and frequency. Denies dysuria. Denies hematuria. Nocturia x1. No medication for LUT'S. No hx of kidney stones. ED is chronic. Sildenafil PRN. This is helpful sometimesControlled Medication Agreement was signed on 08/13/2021. [id number] Work Phone: 07-31-2021 History of Present illness Narrative Patient presents to the office today for a 2 MO F/'U w/Labs. Most recent Labs were done on 07/31, Testosterone Level was 264, PSA was 1.53, Hct was 49.3, Hgb was 16.2, Prior Testosterone Level was 191 and the PSA was 1.68 on 09/29 .Patient has never been on testosterone replacement but he would like to start. He states his energy level is low and libido is very diminished but is just recovering from COVID and Pneumonia.. BPH sx are mild and stable. Denies urgency and frequency. Denies dysuria. Denies hematuria. Nocturia x1. No medication for LUT'S. No hx of kidney stones. ED is chronic. Sildenafil PRN. This is helpful sometimesControlled Medication Agreement was signed on 08/13/2021. [id number] Work Phone: 07-31-2021 History of Present illness Narrative Patient presents to the office today for a 3 MO F/'U w/Testosterone Level. Testosterone Level was 209. Prior Labs were done on 07/31, Testosterone Level was 264, PSA was 1.53, Hct was 49.3, Hgb was 16.2, Prior Testosterone Level was 191 and the PSA was 1.68 on 09/29 . He states energy levels are low. Patient is on 3 pumps AndroGel daily.. BPH sx are mild and stable. Denies urgency and frequency. Denies dysuria. Denies hematuria. Nocturia x1. No medication for LUT'S. No hx of kidney stones. ED is chronic. Sildenafil PRN. This is helpful sometimesControlled Medication Agreement was signed on 08/13/2021. [employer] Work Phone: 09-10-2020 History of Present illness Narrative Patient is here for LOW T. Most recent T level was 191. Patient has never been on testosterone replacement but he would like to start. He states his energy level is low and libido is very diminished. Most recent PSA was 1.68 on 09/2020. BPH sx are mild and stable. Denies urgency and frequency. Denies dysuria. Denies hematuria. Nocturia x1. No medication for LUT'S. No hx of kidney stones. ED is chronic. Sildenafil PRN. This is helpful sometimes [employer] Work Phone: 09-10-2020 History of Present illness Narrative Patient is here for LOW T. Most recent T level was 191. Patient has never been on testosterone replacement but he would like to start. He states his energy level is low and libido is very diminished. Most recent PSA was 1.68 on 09/2020. BPH sx are mild and stable. Denies urgency and frequency. Denies dysuria. Denies hematuria. Nocturia x1. No medication for LUT'S. No hx of kidney stones. ED is chronic. Sildenafil PRN. This is helpful sometimes [employer] Work Phone: Evaluation note Diagnosis Onset Date Erectile dysfunction acute Hyperlipidemia acute Knee osteoarthritis acute Hypertension chronic [facility] Work Phone: Evaluation note* Diagnosis Nocturia Benign prostatic hyperplasia, unspecified whether lower urinary tract symptoms present Male hypogonadism Other testicular hypofunction Erectile dysfunction, unspecified erectile dysfunction type documented in this encounter [facility] Work Phone: Evaluation note* Diagnosis Onset Date Resolution Status Basal cell carcinoma (BCC) in situ of skin acute Skin lesion of left arm acut e Basal cell carcinoma (BCC) in situ of skin acute Skin lesion of left arm acut e [facility] Work Phone: Evaluation note* Diagnosis Pharyngitis, unspecified etiology- Primary documented in this encounter [facility] Work Phone: Evaluation note* Diagnosis Hernia- Primary Hernia of unspecified site of abdominal cavity without mention of obstruction or gangrene Abdominal wall bulge Abdominal or pelvic swelling, mass or lump, unspecified site [facility] Hernia Hernia of unspecified site of abdominal cavity without mention of obstruction or gangrene [facility] Diagnosis Upper respiratory tract infection, unspecified type- Primary documented in this encounter [facility] Work Phone: Evaluation note* Diagnosis Benign prostatic hyperplasia, unspecified whether lower urinary tract symptoms present Nocturia Male hypogonadism Other testicular hypofunction Erectile dysfunction, unspecified erectile dysfunction type documented in this encounter [facility] Work Phone: History of Present illness Narrative* Patient is here for 6 month f/u for hx of hypogonadism. He is taking Jatenzo BID and Anastrozole. .Most recent labs were 06/02 was 138. PSA was 2.44. H/H was 17/53.6.. Prior Labs were done on 11/02. Tlevel was 513, Hct was 54.8, Hgb was17.8. Prior Labs were done on 08/01. T level was 195, Hct was 54.8, Hgb was 18.0, and PSA was 1.62. Chronic BPH sx are mild and stable. Denies urgency and frequency. Denies dysuria. Denies hematuria. Nocturia x1. No medication for LUT'S. ED is chronic. SildenafilPRN. * CSA signed on 08/12/22 [id number]-Qguqcti Work Phone: Summary Purpose Family History No Family History Records FoundUnknown Family Member Name Dates Details Family history of lung cance r: Mother(V16.1, Z80.1) Status:Active Family history of hypertensi on: Father(V17.49, Z82.49) Status:Active Family history of malignant neoplasm of skin: Brother, Sister(V16.8, Z80.8) Status:Active Unknown Family Member Name Dates Details Family history of lung cance r: Mother(V16.1, Z80.1) Status:Active Family history of hypertensi on: Father(V17.49, Z82.49) Status:Active Family history of malignant neoplasm of skin: Brother, Sister(V16.8, Z80.8) Status:Active Unknown Family Member Name Dates Details Family history of lung cance r: Mother(V16.1, Z80.1) Status:Active Family history of hypertensi on: Father(V17.49, Z82.49) Status:Active Family history of malignant neoplasm of skin: Brother, Sister(V16.8, Z80.8) Status:Active Unknown Family Member Name Dates Details Family history of lung cance r: Mother(V16.1, Z80.1) Status:Active Family history of hypertensi on: Father(V17.49, Z82.49) Status:Active Family history of malignant neoplasm of skin: Brother, Sister(V16.8, Z80.8) Status:Active Unknown Family Member Name Dates Details Family history of lung cance r: Mother(V16.1, Z80.1) Status:Active Family history of hypertensi on: Father(V17.49, Z82.49) Status:Active Family history of malignant neoplasm of skin: Brother, Sister(V16.8, Z80.8) Status:Active Unknown Family Member Name Dates Details Family history of lung cance r: Mother(V16.1, Z80.1) Status:Active Family history of hypertensi on: Father(V17.49, Z82.49) Status:Active Family history of malignant neoplasm of skin: Brother, Sister(V16.8, Z80.8) Status:Active Unknown Family Member Name Dates Details Family history of lung cance r: Mother(V16.1, Z80.1) Status:Active Family history of hypertensi on: Father(V17.49, Z82.49) Status:Active Family history of malignant neoplasm of skin: Brother, Sister(V16.8, Z80.8) Status:Active Unknown Family Member Name Dates Details Family history of lung cance r: Mother(V16.1, Z80.1) Status:Active Family history of hypertensi on: Father(V17.49, Z82.49) Status:Active Family history of malignant neoplasm of skin: Brother, Sister(V16.8, Z80.8) Status:Active Unknown Family Member Name Dates Details Family history of lung cance r: Mother(V16.1, Z80.1) Status:Active Family history of hypertensi on: Father(V17.49, Z82.49) Status:Active Family history of malignant neoplasm of skin: Brother, Sister(V16.8, Z80.8) Status:Active Unknown Family Member Name Dates Details Family history of lung cance r: Mother(V16.1, Z80.1) Status:Active Family history of hypertensi on: Father(V17.49, Z82.49) Status:Active Family history of malignant neoplasm of skin: Brother, Sister(V16.8, Z80.8) Status:Active Unknown Family Member Name Dates Details Family history of malignant neoplasm of skin: Brother, Sister(V16.8, Z80.8) Status:Active Family history of hypertensi on: Father(V17.49, Z82.49) Status:Active Family history of lung cance r: Mother(V16.1, Z80.1) Status:Active Unknown Family Member Name Dates Details Family history of lung cance r: Mother(V16.1, Z80.1) Status:Active Family history of hypertensi on: Father(V17.49, Z82.49) Status:Active Family history of malignant neoplasm of skin: Brother, Sister(V16.8, Z80.8) Status:Active Unknown Family Member Name Dates Details Family history of lung cance r: Mother(V16.1, Z80.1) Status:Active Family history of hypertensi on: Father(V17.49, Z82.49) Status:Active Family history of malignant neoplasm of skin: Brother, Sister(V16.8, Z80.8) Status:Active Unknown Family Member Name Dates Details Family history of lung cance r: Mother(V16.1, Z80.1) Status:Active Family history of hypertensi on: Father(V17.49, Z82.49) Status:Active Family history of malignant neoplasm of skin: Brother, Sister(V16.8, Z80.8) Status:Active Unknown Family Member Name Dates Details Family history of lung cance r: Mother(V16.1, Z80.1) Status:Active Family history of hypertensi on: Father(V17.49, Z82.49) Status:Active Family history of malignant neoplasm of skin: Brother, Sister(V16.8, Z80.8) Status:Active Unknown Family Member Name Dates Details Family history of lung cance r: Mother(V16.1, Z80.1) Status:Active Family history of hypertensi on: Father(V17.49, Z82.49) Status:Active Family history of malignant neoplasm of skin: Brother, Sister(V16.8, Z80.8) Status:Active Unknown Family Member Name Dates Details Family history of lung cance r: Mother(V16.1, Z80.1) Status:Active Family history of hypertensi on: Father(V17.49, Z82.49) Status:Active Family history of malignant neoplasm of skin: Brother, Sister(V16.8, Z80.8) Status:Active Unknown Family Member Name Dates Details Family history of lung cance r: Mother(V16.1, Z80.1) Status:Active Family history of hypertensi on: Father(V17.49, Z82.49) Status:Active Family history of malignant neoplasm of skin: Brother, Sister(V16.8, Z80.8) Status:Active Advance Directives No Advanced Directives Records FoundNo Advanced Directives Records FoundNo Advanced Directives Records FoundNo Advanced Directives Records FoundNo Advanced Directives Records FoundNo Advanced Directives Records FoundNo Advanced Directives Records FoundNo Advanced Directives Records FoundNo Advanced Directives Records FoundNo Advanced Directives Records FoundNo Advanced Directives Records Found Chief Complaint LOW T2 MO F/U w/LabsLOW T3 MO F/.U w/Testosterone Level6 month follow up with labs6 month follow up with labs6 mo w/ labs Chief Complaint and Reason for Visit Chief Complaint medication refills Reason for Visit Erectile dysfunction Hyperlipidemia Knee osteoarthritis Hypertension Chief Complaint Possible wound W/arm I&D on arm Reason for Visit Basal cell carcinoma (BCC) in situ of skin Skin lesion of left arm Basal cell carcinoma (BCC) in situ of skin Skin lesion of left arm Reason for Referral Specialty Diagnoses / Procedures Referred By Contcirilo t Referred To Contact CT IMAGING Diagnoses Hernia Procedures CT ABDOMEN W IVCON CT ABDOMEN W/CONTRAST Jeniffer Jose MD [address] [address] [place] [address] Referral ID Status Reason Start Date Expiration Date Visits Requested Visits Authorized [id number] Authorized Auto-Generat ed Referral 4 08/24/2025 1 1 Specialty Diagnoses / Procedures Referred By Leonora t Referred To Contact CT IMAGING Diagnoses Hernia Procedures CT CHEST W IVCON DIAGNOSTIC COMPUTED TOMOGRAPHY THORAX W/CONTRAST Jeniffer Jose MD [address] [place] [address] [place] [address] Referral ID Status Reason Start Date Expiration Date Visits Requested Visits Authorized [id number] Authorized Auto-Generat ed Referral 08/24/2025 1 1 Referral ID Status Reason Start Date Expiration Date V isits Requested Visits Authorized [id number] Closed Auto-Generate d Referral 07/25/2024 08/24/2025 1 1 Referral ID Status Reason Start Date Expiration Date V isits Requested Visits Authorized [id number] Closed Auto-Generate d Referral 07/25/2024 08/24/2025 1 1 Additional Source Comments <item> Privacy Markings (unrecogniz ed section and content) Section Author: Elena Ambrose PROHIBITION ON REDISCLOSURE OF CONFIDENTIAL INFORMATION This notice accompanies a disclosure of information concerning a client made to you with the consent of such client. (unrecognized sect ion and content) No Status Records FoundNo Status Records FoundNo Status Records FoundNo Status Records FoundNo Status Records FoundNo Status Records FoundNo Status Records FoundNo Status Records FoundNo Status Records FoundNo Status Records FoundNo Status Records Found INFORMATION SOURCE (unrecogn ized section and content) DATE CREATED AUTHOR 05/10/2021 [facility] DATE CREATED AUTHOR AUTHOR'S ORGANIZ ATION 02/03/2023 [facility] DATE CREATED AUTHOR AUTHOR'S ORGANIZ ATION 05/20/2023 [employer] DATE CREATED AUTHOR AUTHOR'S ORGANIZ ATION 05/29/2023 [facility] DATE CREATED AUTHOR AUTHOR'S ORGANIZ ATION 08/08/2024 [facility] DATE CREATED AUTHOR AUTHOR'S ORGANIZ ATION 08/10/2024 [facility] DATE CREATED AUTHOR AUTHOR'S ORGANIZ ATION 08/20/2024 [facility] DATE CREATED AUTHOR AUTHOR'S ORGANIZ ATION 08/31/2024 [facility] DATE CREATED AUTHOR AUTHOR'S ORGANIZ ATION 11/01/2024 [facility] DATE CREATED AUTHOR AUTHOR'S ORGANIZ ATION 08/15/2025 [facility] DATE CREATED AUTHOR AUTHOR'S ORGANIZ ATION 08/17/2025 [facility] Source Comments (unrecognize d section and content) In the event this informatio n is protected by the Federal Confidentiality of Alcohol and Drug Abuse Patient Records regulations: The Federal rules restrict any use of the information to criminally investigate or prosecute any alcohol or drug abuse patient.[facility] the event this information is protected by the Federal Confidentiality of Alcohol and Drug Abuse Patient Records regulations: The Federal rules restrict any use of the information to criminally investigate or prosecute any alcohol or drug abuse patient.[facility] the event this information is protected by the Federal Confidentiality of Alcohol and Drug Abuse Patient Records regulations: The Federal rules restrict any use of the information to criminally investigate or prosecute any alcohol or drug abuse patient.[facility] the event this information is protected by the Federal Confidentiality of Alcohol and Drug Abuse Patient Records regulations: The Federal rules restrict any use of the information to criminally investigate or prosecute any alcohol or drug abuse patient.[facility] the event this information is protected by the Federal Confidentiality of Alcohol and Drug Abuse Patient Records regulations: The Federal rules restrict any use of the information to criminally investigate or prosecute any alcohol or drug abuse patient.[facility] Goals (unrecognized section and content) Goals may be documented in a n alternate sectionGoals may be documented in an alternate section Care Teams (unrecognized sec tion and content) Ventilating Engineer Relationship Specialty Start Date End Date Brandie uBrt APRN.[facility] [address] [address] PCP - General Family Medicine 05/02/21 Team Status: Active Member Role Status Dates Brandie Burt NP, PIN OR CLIP FASTENER-C Primary Care Provider Active Team Status: Inactive Member Role Status Dates Brandie Burt NP PIN OR CLIP FASTENER-C Attending Provider Active Team Status: Inactive Member Role Status Dates Brandie Burt PIN OR CLIP FASTENER, PIN OR CLIP FASTENER-C Primary Care Provider, Attend ing Provider Active Ventilating Engineer Relationship Specialty Start Date End Date Brandie Burt APRN-[facility] [address] [facility] [place], [place] [phone] PCP - General 03/16/24 Ventilating Engineer Relationship Specialty Start Date End Date Brandie Burt APRN.[facility] [address] [place], [place] [phone] PCP - General Family Medicine 05/02/21 Ventilating Engineer Relationship Specialty Start Date End Date Brandie Burt APRN.CNP [address] [place], [place] [phone] PCP - General Family Medicine 05/02/21 Ventilating Engineer Relationship Specialty Start Date End Date Brandie Burt APRN.[employer] [address] [place], [place] [phone] PCP - General Family Medicine 05/02/21 Ventilating Engineer Relationship Specialty Start Date End Date Brandie Burt APRN-[facility]ON[facility] [address] [facility] [place], [place] [phone] PCP - General 03/16/24 Ventilating Engineer Relationship Specialty Start Date End Date Brandie Burt APRN-[employer] [address] [facility] Hours Family Medicine [place], [place] [phone] PCP - General 03/16/24 Reason for Visit (unrecogniz ed section and content) Reason Comments T LEVEL RESULTS Reason Comments Sore Throat L ear pain x 1 week Reason Comments Consult L inguinal hernia Specialty Diagnoses / Procedures Referred By Contac t Referred To Contact CT IMAGING Diagnoses Hernia Procedures CT CHEST W IVCON DIAGNOSTIC COMPUTED TOMOGRAPHY THORAX W/CONTRAST Jeniffer Jose MD [address] [address] [place] [address] Referral ID Status Reason Start Date Expiration Date V isits Requested Visits Authorized [id number] Closed Auto-Generate d Referral 07/25/2024 08/24/2025 1 1 Reason Comments URI Cough, congestion x 10 days Reason Comments 6 months with labs FOR RECORDS PERTAINING TO PATIENTS WHO ARE OR HAVE BEEN ENROLLED IN A CHEMICAL DEPENDENCY/SUBSTANCEABUSE PROGRAM, SOME INFORMATION MAY BE OMITTED. This clinical summary was aggregated from multiple sources. Caution should be exercised in using it in the provision of clinical care. This summary normalizes information from multiple sources, and as a consequence, information in this document may materially change the coding, format and clinical context of patient data. In addition, data may be omitted in some cases. CLINICAL DECISIONS SHOULD BE BASED ON THE PRIMARY CLINICAL RECORDS. [facility]. provides no warranty or guarantee of the accuracy or completeness of information in this document.
[2025-08-20 23:07] LABS: AST(SGOT) 43 U/L (<=37); Alanine Aminotransfer ALT/SGPT 45 U/L (<=46); Albumin, Serum 4.4 g/dL (3.5-5.0); Alkaline Phosphatase 108 U/L (40-129); Anion Gap 11 (5-15); BUN 18 mg/dL (4-19); BUN/Creat Ratio 15.2 RATIO (10-20); Calcium,Total 9.1 mg/dL (7.6-11.0); Carbon Dioxide 24.1 mmol/L (21.0-32.0); Chloride 105 mmol/L (98-108); Cholesterol 192 mg/dL (<=200); Globulin 2.8 g/dL (2.2-4.2); Glucose 91 mg/dL (70-99); Low Density Lipoprotein Calc. 130 mg/dL; Potassium 4.3 mmol/L (3.3-5.1); Triglycerides 131 mg/dL; Very Low Density Lipoprotein 26 mg/dL (5-40); cholesterol:hdl ratio screen 5.00
[2025-08-20 23:08] LABS: Hematocrit 54.2 % (40-54); Hemoglobin 17.9 g/dL (13.0-16.5); Immature Granulocytes Count 0.020 X10^3/uL (0.0-0.0); Mean Corp Hgb Conc 33.0 g/dL (32-36); Mean Corpuscular Volume 92.5 fL (80-94); Mean Platelet Vol. 11.0 fl (6.2-12.0); NRBC Flagged by Analyzer 0 % (0-5); Platelet Count 206 K/mm3 (150-450); RBC Distribution Width CV 13.9 % (11.6-14.6); RBC Distribution Width SD 47.3 fl (35.1-43.9); Red Blood Count 5.86 M/mm3 (4.6-6.2); White Blood Count 6.8 K/mm3 (4.4-11.0)
== END | disposition home or self-care (01) ==
PROVIDERS: PCP Nurse Practitioner; Referring Provider Nurse Practitioner; Visit Provider Nurse Practitioner
DX: I10 Essential (primary) hypertension (principal); E78.2 Mixed hyperlipidemia; R79.89 Other specified abnormal findings of blood chemistry; G47.30 Sleep apnea, unspecified
CPT/HCPCS: 80053; 80061; 85025